=== PATIENT | male | born 1990 | race Caucasian/White ===

== ENCOUNTER 2022-08-10 13:33 | Inpatient (IN) | payer OTHER, SELFPAY ==
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
--- NOTE | ~2022-08-10 | XR_ITS ---
EXAMINATION: XR CHEST CLINICAL INFORMATION: Left-sided rib pain COMPARISON: Left RIBS with chest 08/12/2022. TECHNIQUE: 2 frontal views and a lateral projection of the chest are obtained for 3 views. FINDINGS: The cardiopericardial silhouette appears prominent. This may be further assessed with echocardiography. The vascularity is normal. The lungs are clear. No pneumothorax or pleural reaction. There is no vascular congestion, airspace consolidation, groundglass opacity. The costophrenic sulci are clear. The hilar and mediastinal contours are normal. There is small oval density lateral left apex just inferior to the fourth posterior rib, likely calcified granuloma just under 5 mm. Bony structures are unremarkable. Results communicated to APRIL Welsh via secure text at 1710 hrs on 08/13/2022. XR/XR chest 2V IMPRESSION: 1. Prominent cardiopericardial silhouette. This may be further assessed with echocardiography. 2. No pneumothorax, airspace consolidation, or effusion. 3. Probable small calcified granuloma lateral left upper lobe.
[2022-08-10 13:50] VITALS: BP 160/87; PULSE 81; RESP 16; TEMP 36.4; O2SAT 96
--- NOTE | 2022-08-10 14:45 | P.CNHOSGPS_ITS ---
History of Present Illness Data of Consult Service Date: 08/10/22 Primary Care Provider: Jason Schumacher MD [facility] Reason for consult: Transfer H&P Pt is a 31-year-old male with PMH significant for HTN, insomnia, history of back surgery, bipolar disorder, severe anxiety, and manic depression who is seen for a psychiatry admission history and physical. Patient complains of left rib pain. Pt also complains of chronic lower back and right knee pain, which he ascribes to years of powerlifting and from playing football. He also states he has chronic left leg numbness and tingling. Pt has no other acute complaints at this time. Pt is worried about brain tumors d/t his mother being diagnosed with one at 23 years of age, but does not have any vision or hearing changes, focal deficits, and only mild, intermittent headaches. Denies N/V, F/C, abdominal pain. No chest pain/pressure, palpitations, SOB. Review of Systems Review of Systems: Chronic back pain Chronic right knee pain Left rib pain No chest pain/pressure, palpitations Denies SOB Yes all other systems are reviewed and are negative [facility] Family History (Updated 08/10/22 @ 15:39 by APRIL Welsh) Sister Bipolar 1 disorder Diabetes Substance abuse Mother Bipolar 1 disorder Substance abuse Brain tumor Father Bipolar 1 disorder Suicide Surgical History (Updated 08/10/22 @ 15:40 by APRIL Welsh) Previous back surgery Social History (Updated 08/10/22 @ 15:41 by APRIL Welsh) Alcohol intake: never Patient Tobacco Use Status: Never used Tobacco Use of substances other than those prescribed or required for medical reasons: No Advance Directives: No Advance Directives Information Provided: No Advance Directives on File: No Meds Allergies Allergy/AdvReac Type Severity Reaction Status Date / Time No Known Allergies Allergy Unverified 04/26/20 16:00 Active Medications: Current Medications Acetaminophen (Acetaminophen 325 Mg Tablet) 650 mg PO Q6H PRN PRN Reason: Headache/Pain Mild Scale (1-3) Al Hydroxide/Mg Hydroxide (Magnesium Hydrox/Alum Hydrox 30 Ml Oral.Susp) 30 ml PO Q6H PRN PRN Reason: Heartburn/Nausea Hydroxyzine HCl (Hydroxyzine Hcl 25 Mg Tablet) 25 mg PO Q6H PRN PRN Reason: Anxiety Magnesium Hydroxide (Milk Of Magnesia 30 Ml Oral.Susp) 30 ml PO DAILY PRN PRN Reason: Constipation Trazodone HCl (Trazodone Hcl 50 Mg Tablet) 50 mg PO BEDTIME PRN PRN Reason: Insomnia Assessment and Plan (1) Rib pain on left side: Status: Acute (2) Chronic pain of right knee: Status: Acute (3) Chronic lower back pain: Status: Acute (4) Insomnia: Status: Acute Plan Pt is a 31-year-old male with PMH significant for HTN, insomnia, history of back surgery, bipolar disorder, severe anxiety, and manic depression who is seen for a psychiatry admission history and physical. # left rib pain -- chest x-ray -- acetaminophen prn for pain # chronic lower back and righ knee pain -- acetaminophen prn for pain management # HTN -- waiting on med rec, likely to continue home meds # insomnia -- continue trazadone # mental health -- as per psychiatry plan Thank you for allowing me to participate in the care of this pt. We will follow CXR and sign off then if the results are clear. Please contact us with any questions or additional concerns. Time Spent With Patient Time: Total time managing care of this patient today ____ minutes. Physical Exam Vital Signs: Last Vital Signs Temp 97.5 F 08/10/22 13:50 Pulse 81 08/10/22 13:50 Resp 16 08/10/22 13:50 BP 160/87 H 08/10/22 13:50 Pulse Ox 96 08/10/22 13:50 O2 Del Method 08/10/22 13:50 Constitutional: Alert, in no acute distress. Mental Status: Oriented to person, place and time. Eyes: Pupils are equal, round, and reactive to light. Ear, Nose, and Throat: Oropharynx clear, mucous membranes moist. Ears and nose without deformities. Trachea midline. Respiratory: Clear to auscultation bilaterally. No wheezing, rales, or rhonchi. Cardiovascular: S1, S2 regular. No murmurs, rubs, or gallops. Gastrointestinal: Abdomen soft, non-tender, non-distended. Normal bowel sounds. Neurologic: Cranial nerves II-XI are grossly intact. No focal neurological deficits. Moves all extremities spontaneously. Decreased sensation to touch to left leg Skin: No rashes or lesions noted. Musculoskeletal: Mild tenderness to anterior chest wall on left side. Extremities: No edema. Psychiatric: Normal mood and affect. Neuro Cranial nerves: Yes CN's II-XII intact bilaterally
[2022-08-10 18:00] VITALS: BP 142/82; PULSE 76; RESP 16; TEMP 36.8; O2SAT 97
--- NOTE | 2022-08-10 20:13 | PC.NURSE ---
pt refused flu shot
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
[2022-08-10] MEDS: traZODone HCL 50 MG TABLET PO (22:52)
[2022-08-11] MEDS: Acetaminophen 325 MG TABLET 650 MG PO ×3 (03:23→22:30)
[2022-08-11] MEDS: traZODone HCL 50 MG TABLET PO (03:24)
[2022-08-11] MEDS: hydrOXYzine HCL 25 MG TABLET PO ×3 (05:11→23:36)
[2022-08-11 08:10] LABS: Estimated Average Glucose 97 mg/dL
[2022-08-11 08:17] LABS: Cholesterol 141 mg/dL; HDL Cholesterol 27 mg/dL; LDL Cholesterol Calculated 96 mg/dl; Magnesium 1.6 mg/dL (1.6-2.6); Triglycerides 92 mg/dL
[2022-08-11 08:30] VITALS: BP 143/96; PULSE 101; TEMP 36.6
[2022-08-11 08:35] LABS: Free T4 (Free Thyroxine) 1.06 ng/dL (0.71-1.85)
[2022-08-11 08:47] LABS: Folate 13.1 ng/mL (> or = 4.0); Vitamin B12 975 pg/mL (200-900)
[2022-08-11] MEDS: OLANZapine ODT 10 MG TAB.RAPDIS TRANSLINGU ×2 (10:58→20:23)
[2022-08-11] MEDS: OLANZapine 10 MG TABLET PO (12:37)
[2022-08-11] MEDS: LORazepam 1 MG TABLET 2 MG PO ×2 (12:37→22:31)
[2022-08-11] MEDS: Divalproex Sodium ER 500 MG TAB.ER.24H PO ×2 (14:03→20:23)
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
[2022-08-11] MEDS: traZODone HCL 50 MG TABLET 150 MG PO ×2 (20:23→23:36)
[2022-08-11 20:30] VITALS: BP 178/96; PULSE 72; TEMP 36.2
[2022-08-12] MEDS: Acetaminophen 325 MG TABLET 650 MG PO ×2 (05:10→12:24)
[2022-08-12] MEDS: LORazepam 1 MG TABLET 2 MG PO ×2 (05:12→09:08)
[2022-08-12] MEDS: OLANZapine ODT 10 MG TAB.RAPDIS TRANSLINGU ×2 (07:56→20:51)
[2022-08-12] MEDS: Divalproex Sodium ER 500 MG TAB.ER.24H PO ×2 (07:56→20:53)
[2022-08-12 08:04] VITALS: BP 184/87; PULSE 86; RESP 16; TEMP 36.6; O2SAT 98
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
[2022-08-12] MEDS: OLANZapine 5 MG TABLET PO ×2 (12:25→16:23)
[2022-08-12 13:09] VITALS: BP 167/107; PULSE 112
[2022-08-12] MEDS: lisinopriL 5 MG TABLET PO (13:10)
[2022-08-12] MEDS: clonazePAM 0.5 MG TABLET PO ×2 (13:11→16:22)
[2022-08-12] MEDS: Cariprazine HCl 3 MG CAPSULE PO (13:11)
[2022-08-12 18:00] VITALS: BP 136/96; PULSE 89; TEMP 36.2; O2SAT 96
[2022-08-12] MEDS: traZODone HCL 100 MG TABLET 300 MG PO (20:51)
[2022-08-13] MEDS: hydrOXYzine HCL 25 MG TABLET PO ×3 (00:54→13:23)
[2022-08-13] MEDS: OLANZapine 5 MG TABLET PO ×3 (00:54→13:23)
[2022-08-13] MEDS: Acetaminophen 325 MG TABLET 650 MG PO ×2 (04:10→11:24)
[2022-08-13 06:00] VITALS: BP 160/108; PULSE 102; TEMP 36.2; O2SAT 96
[2022-08-13] MEDS: OLANZapine ODT 10 MG TAB.RAPDIS TRANSLINGU ×2 (08:18→21:11)
[2022-08-13] MEDS: clonazePAM 0.5 MG TABLET PO ×2 (08:18→16:27)
[2022-08-13] MEDS: lisinopriL 10 MG TABLET PO (08:18)
[2022-08-13] MEDS: Cariprazine HCl 3 MG CAPSULE PO (08:18)
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
[2022-08-13] MEDS: chlorproMAZINE HCl 25 MG TABLET 75 MG PO (14:12)
[2022-08-13] MEDS: Ibuprofen 800 MG TABLET PO (15:47)
[2022-08-13] MEDS: chlorproMAZINE HCl 100 MG TABLET PO ×2 (16:26→21:11)
[2022-08-13] MEDS: traZODone HCL 100 MG TABLET 300 MG PO (21:11)
[2022-08-13] MEDS: Zolpidem Tartrate 5 MG TABLET PO (21:12)
[2022-08-13] MEDS: Divalproex Sodium ER 500 MG TAB.ER.24H 1000 MG PO (21:12)
[2022-08-13 21:43] VITALS: BP 129/74; TEMP 36.1; O2SAT 96
[2022-08-13 22:58] LABS: Prolactin 12.3 ng/mL (2.0-18.0)
--- NOTE | 2022-08-13 23:15 | PC.NURSE ---
Patient told this sql report writer that [employer] is working really well for me .
[2022-08-14] MEDS: Acetaminophen 325 MG TABLET 650 MG PO (04:29)
[2022-08-14] MEDS: hydrOXYzine HCL 25 MG TABLET PO (04:30)
[2022-08-14] MEDS: chlorproMAZINE HCl 100 MG TABLET PO ×3 (04:30→16:24)
[2022-08-14] MEDS: clonazePAM 0.5 MG TABLET PO ×2 (08:06→16:24)
[2022-08-14] MEDS: Ibuprofen 800 MG TABLET PO ×3 (08:06→16:23)
[2022-08-14] MEDS: Cariprazine HCl 3 MG CAPSULE PO (08:07)
[2022-08-14] MEDS: OLANZapine ODT 10 MG TAB.RAPDIS TRANSLINGU ×2 (08:07→20:46)
[2022-08-14] MEDS: lisinopriL 10 MG TABLET PO ×2 (08:07→11:12)
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
[2022-08-14 08:57] VITALS: BP 181/95; PULSE 103; RESP 18; TEMP 36.4; O2SAT 91
--- NOTE | 2022-08-14 09:50 | PC.NURSE ---
updated 08/14- Pt. signed a 3 day notice today 08/14 , up on Saturday 08/19.
[2022-08-14] MEDS: OLANZapine 5 MG TABLET PO ×2 (12:52→14:09)
[2022-08-14] MEDS: cloNIDine HCL 0.1 MG TABLET PO ×2 (14:09→20:46)
[2022-08-14 14:36] VITALS: BP 150/96
[2022-08-14] MEDS: Lithium Carbonate ER 300 MG TABLET.ER PO (14:50)
[2022-08-14] MEDS: clonazePAM 1 MG TABLET PO (14:50)
--- NOTE | 2022-08-14 16:55 | PM.EVENT ---
Documented by User: APRIL Welsh 08/14/22 16:57 Event Note Date of Service: 08/14/22 Event Note: Patient's initial x-ray came back identifying the prominent cardiopericardial silhouette. Will get echocardiogram for further evaluation. Will follow for now, pending echo results. Time Spent With Patient Time: Total time managing care of this patient today ____ minutes. Documented by User: Tony Raymond MD 08/29/22 07:17 Event Note Date of Service: 08/29/22
[2022-08-14 18:00] VITALS: BP 132/78; PULSE 96; RESP 16; TEMP 36.6; O2SAT 98
[2022-08-14] MEDS: Divalproex Sodium ER 500 MG TAB.ER.24H 1000 MG PO (20:46)
[2022-08-14] MEDS: Zolpidem Tartrate 5 MG TABLET PO (20:46)
[2022-08-14] MEDS: Lithium Carbonate ER 300 MG TABLET.ER 600 MG PO (20:46)
[2022-08-14] MEDS: traZODone HCL 100 MG TABLET 300 MG PO (20:47)
[2022-08-15] MEDS: chlorproMAZINE HCl 100 MG TABLET PO ×3 (04:57→16:08)
[2022-08-15 05:41] VITALS: BP 128/87; PULSE 94; RESP 16; TEMP 36.2; O2SAT 97
[2022-08-15] MEDS: OLANZapine 5 MG TABLET PO (05:55)
[2022-08-15] MEDS: hydrOXYzine HCL 25 MG TABLET PO (05:55)
--- NOTE | 2022-08-15 07:00 | CA_ITS ---
Transthoracic Echocardiogram Patient (Last, First, Middle): Washington Yap, Gender: Male Date of : 1990 Age: 31 Procedure Date: 08/15/2022 Procedure Type: Transthoracic Echocardiogram Location: 5 Height: 177.8 cm Weight: 140.62 kg BSA: 2.51 m2 Heart Rate: 72 bpm BP: 128 / 87 mmHg Sales Development Executive: SB Referring MD: Maria Eugenia CHEN Symptoms: Abnormal Chest X-Ray, possible Cardiomyopathy Study Quality: Adequate ECG Rhythm: Sinus Conclusions: - The left ventricular systolic function is normal. The visually estimated ejection fraction is between 60-65%. - No obvious valvular pathology seen on this study. Findings Left Ventricle Normal left ventricular cavity size. There is moderately increased left ventricular wall thickness. The left ventricular systolic function is normal. The visually estimated ejection fraction is between 60-65%. There is no evidence of regional wall motion abnormalities. Diastolic function is normal for age. Right Ventricle There is normal right ventricular systolic function. Right ventricular size appears enlarged, but probably within acceptable limits for his size. Atria Both atria are normal in size. Aortic Valve There is a normal trileaflet aortic valve. There is no aortic valve stenosis. There is no aortic valve regurgitation. Mitral Valve The mitral valve appears normal. There is no mitral valve regurgitation. There is no mitral valve stenosis. Pulmonic Valve The pulmonic valve is likely normal. Tricuspid Valve Normal tricuspid valve structure. There is trace tricuspid valve regurgitation. There is no evidence of pulmonary hypertension. Great Vessels The asc aorta is normal in size. Venous The inferior vena cava is normal in size and collapses greater than 50% with inspiration. Pericardium/Pleural There is no evidence of pericardial effusion. Prior Study Comparison No prior study available for comparison. Recommendations, Care & Conclusions No obvious valvular pathology seen on this study. Measurements 2D Linear Measurements IVSd: 1.81 0.6-0.9/0.6-1.0 cm LVIDd: 4.62 3.9-5.3/4.2-5.9 cm LVIDd Index: 1.84 2.4-3.2/2.2-3.1 cm/m2 LVIDs: 3.27 2.0-3.6 cm LVPWd: 1.32 0.7-1.1 cm LA Diam: 4.60 2.7-3.8/3.0-4.0 cm LAIDs Index: 1.83 1.5-2.3 cm/m2 LV Mass: 381.55 67-162/88-224 g LV Mass Index: 152.01 43-95/49-115 g/m2 LVOT Diam: 2.90 3.0+(-)1.3 cm 2D Systolic Function EF 4C: 56.30 >55% EF 2C: 57.80 >55% EF BiP: 56.30 >55% Mitral Valve MV Pk E: 0.72 MV PK A: 0.47 MV Decel Time: 166.00 E/A: 1.50 E'Lateral: 10.80 E'Medial: 8.27 E/E' Med: 8.70 E/E' Lat: 6.70 PHT: 49.00 MVA PHT: 4.49 Decel [place]: 4.35 Aortic Valve AoV Pk Cirilo: 1.32 AoV Pk Grad: 7.00 LVOT LVOT Pk Cirilo: 1.37 LVOT Mn Cirilo: 0.90 LVOT VTI: 0.27 LVOT Pk Grad: 8.00 LVOT Mn Grad: 4.00 LVOT Diam: 2.90 LVOT Area: 6.61 Diastolic Function MV Pk E: 0.72 MV Pk A: 0.47 E/A: 1.50 E'Medial: 8.27 E/E' Med: 8.70 E' Laterial: 10.80 E/E' Lat: 6.70 Right Ventricle TAPSE (mm): 29.30 TVS' Cirilo: 17.50 Tricuspid Valve TR Pk Cirilo: 2.26 TR Pk Grad: 20.00 RA Press: 3.00 RVSP: 23.00 Great Vessels Aorta Sinus of Valsalva: 4.10 2.0-3.5 cm Ao Asc: 3.30 2.1-3.4 cm Pulmonary Veins Pulm Vein S/D 1.20 Pulmonary Valve PV Pk Cirilo: 1.16 Peak PV Grad: 5.00 Updated in Other Vendor System with Status of Final Hardik Dobbs MD electronically signed on 08/15/2022 4:17:10 PM with status of Final
[2022-08-15] MEDS: Ibuprofen 800 MG TABLET PO ×3 (08:34→16:09)
[2022-08-15] MEDS: lisinopriL 20 MG TABLET PO (08:34)
[2022-08-15] MEDS: clonazePAM 0.5 MG TABLET PO ×2 (08:35→13:04)
[2022-08-15] MEDS: OLANZapine ODT 10 MG TAB.RAPDIS TRANSLINGU (08:35)
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
[2022-08-15] MEDS: Testosterone Cypionate 200 MG/1 ML VIAL 100 MG IM (12:32)
[2022-08-15] MEDS: cloNIDine HCL 0.1 MG TABLET PO ×2 (14:10→21:29)
--- NOTE | 2022-08-15 19:20 | PM.EVENT ---
Event Note Date of Service: 08/15/22 Event Note: Patient's echocardiogram came back with no acute findings. Echo showed normal left ventricular systolic function with an estimated ejection fraction between 60-65%, and no obvious valvular pathology. Will sign off for now. Please let us know if there are any additional questions or concerns with this patient's medical care. Time Spent With Patient Time: Total time managing care of this patient today ____ minutes.
[2022-08-15 21:20] VITALS: BP 129/66; PULSE 122; TEMP 35.9
[2022-08-15] MEDS: Zolpidem Tartrate 5 MG TABLET PO (21:24)
[2022-08-15] MEDS: Lithium Carbonate ER 450 MG TABLET.ER 900 MG PO (21:27)
[2022-08-15] MEDS: OLANZapine ODT 10 MG TAB.RAPDIS 5 MG TRANSLINGU (21:27)
[2022-08-15] MEDS: traZODone HCL 100 MG TABLET 300 MG PO (21:28)
[2022-08-15] MEDS: Divalproex Sodium ER 500 MG TAB.ER.24H 1000 MG PO (21:28)
[2022-08-16] MEDS: traZODone HCL 100 MG TABLET 200 MG PO (04:17)
[2022-08-16] MEDS: chlorproMAZINE HCl 100 MG TABLET PO ×2 (04:17→09:29)
[2022-08-16] MEDS: clonazePAM 0.5 MG TABLET PO ×2 (05:42→15:47)
[2022-08-16 06:00] VITALS: BP 122/66; PULSE 95; RESP 16; TEMP 36.8; O2SAT 96
[2022-08-16] MEDS: cloNIDine HCL 0.1 MG TABLET PO (08:18)
[2022-08-16] MEDS: lisinopriL 20 MG TABLET PO (08:18)
[2022-08-16] MEDS: OLANZapine ODT 10 MG TAB.RAPDIS 5 MG TRANSLINGU ×2 (08:20→22:36)
[2022-08-16 08:42] LABS: Valproate 45.8 mcg/mL (50.0-100.0)
[2022-08-16 08:42] LABS: Ammonia 34 umol/L (13-55)
[2022-08-16 08:42] LABS: Blood Urea Nitrogen 13 mg/dL (9-16); Estimated Glomerular Filt Rate > 60; TSH reflex Free T4 1.18 uIU/mL (0.32-4.0)
[2022-08-16] MEDS: Milk of Magnesia 30 ML ORAL.SUSP PO (08:45)
[2022-08-16] MEDS: OLANZapine 5 MG TABLET PO (09:30)
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
[2022-08-16] MEDS: Acetaminophen 325 MG TABLET 650 MG PO (18:51)
[2022-08-16 22:30] VITALS: BP 119/62; PULSE 68; TEMP 35.7
[2022-08-16] MEDS: traZODone HCL 100 MG TABLET 300 MG PO (22:33)
[2022-08-16] MEDS: Divalproex Sodium ER 500 MG TAB.ER.24H 1500 MG PO (22:34)
[2022-08-16] MEDS: Lithium Carbonate ER 450 MG TABLET.ER 900 MG PO (22:35)
[2022-08-16] MEDS: Zolpidem Tartrate 5 MG TABLET PO (22:35)
[2022-08-16] MEDS: OLANZapine 10 MG TABLET PO (22:36)
[2022-08-17] MEDS: traZODone HCL 100 MG TABLET 200 MG PO (03:54)
[2022-08-17] MEDS: clonazePAM 0.5 MG TABLET PO ×2 (03:55→11:18)
[2022-08-17] MEDS: chlorproMAZINE HCl 100 MG TABLET PO ×3 (03:55→17:47)
[2022-08-17 06:00] VITALS: BP 138/79; PULSE 93; RESP 14; TEMP 36.4; O2SAT 96
[2022-08-17] MEDS: lisinopriL 20 MG TABLET PO (08:42)
[2022-08-17] MEDS: OLANZapine ODT 10 MG TAB.RAPDIS 5 MG TRANSLINGU ×2 (08:42→20:46)
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
[2022-08-17 17:13] LABS: Testosterone, Free 25.7 pg/mL (35.0-155.0); Testosterone, Total 138 ng/dL (250-1100)
[2022-08-17] MEDS: Lithium Carbonate ER 450 MG TABLET.ER 900 MG PO (20:45)
[2022-08-17] MEDS: Divalproex Sodium ER 500 MG TAB.ER.24H 1500 MG PO (20:46)
[2022-08-17] MEDS: OLANZapine 10 MG TABLET PO (20:46)
[2022-08-17] MEDS: Zolpidem Tartrate 5 MG TABLET PO (20:48)
[2022-08-17] MEDS: traZODone HCL 100 MG TABLET 300 MG PO (20:48)
[2022-08-17 20:55] VITALS: BP 147/62; PULSE 124; TEMP 36.2
[2022-08-18] MEDS: chlorproMAZINE HCl 100 MG TABLET PO ×3 (02:23→15:49)
[2022-08-18] MEDS: traZODone HCL 100 MG TABLET 200 MG PO (02:24)
[2022-08-18 06:00] VITALS: BP 140/79; PULSE 84; RESP 14; TEMP 36.6; O2SAT 97
[2022-08-18] MEDS: OLANZapine ODT 10 MG TAB.RAPDIS 5 MG TRANSLINGU ×2 (08:03→20:23)
[2022-08-18] MEDS: lisinopriL 20 MG TABLET PO (08:03)
[2022-08-18] MEDS: Acetaminophen 325 MG TABLET 650 MG PO (09:26)
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
[2022-08-18 18:15] VITALS: BP 142/82; PULSE 98; TEMP 35.9; O2SAT 96
[2022-08-18] MEDS: Zolpidem Tartrate 5 MG TABLET PO (20:22)
[2022-08-18] MEDS: Lithium Carbonate ER 450 MG TABLET.ER 900 MG PO (20:22)
[2022-08-18] MEDS: cloNIDine HCL 0.1 MG TABLET PO (20:22)
[2022-08-18] MEDS: traZODone HCL 100 MG TABLET 300 MG PO (20:23)
[2022-08-18] MEDS: Divalproex Sodium ER 500 MG TAB.ER.24H 1500 MG PO (20:23)
[2022-08-18] MEDS: OLANZapine 10 MG TABLET PO (20:23)
[2022-08-19 08:01] VITALS: BP 127/71; PULSE 98; RESP 16; TEMP 36.4; O2SAT 96
[2022-08-19] MEDS: OLANZapine ODT 10 MG TAB.RAPDIS 5 MG TRANSLINGU (08:23)
[2022-08-19] MEDS: cloNIDine HCL 0.1 MG TABLET PO (08:23)
[2022-08-19 08:40] LABS: Lithium 0.46 mmol/L (0.60-1.20)
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
[2022-08-19 08:42] LABS: Ammonia 59 umol/L (13-55)
[2022-08-19 08:43] LABS: Estimated Average Glucose 105 mg/dL; Hemoglobin A1c % 5.3 %
[2022-08-19 08:45] LABS: Valproate 70.7 mcg/mL (50.0-100.0)
[2022-08-19 08:51] LABS: Alanine Aminotransferase 29 U/L (0-40); Alkaline Phosphatase 55 U/L (39-117); Anion Gap 13 (12-20); Aspartate Amino Transferase 20 U/L (5-37); Bilirubin Direct 0.2 mg/dL (0.0-0.5); Bilirubin Total 0.6 mg/dL (0.0-1.0); Blood Urea Nitrogen 13 mg/dL (9-16); Carbon Dioxide 26 mmol/L (22-29); Chloride 105 mmol/L (96-108); Cholesterol 162 mg/dL; Estimated Glomerular Filt Rate > 60; HDL Cholesterol 30 mg/dL; LDL Cholesterol Calculated 107 mg/dl; Potassium 4.2 mmol/L (3.3-5.1); Sodium 140 mmol/L (135-145); Total Protein 6.4 g/dL (6.5-8.0); Triglycerides 128 mg/dL
[2022-08-19 09:08] LABS: Reflex LDLD? No
[2022-08-19] MEDS: chlorproMAZINE HCl 100 MG TABLET PO (09:25)
== END 2022-08-19 13:00 | disposition home or self-care (01) | DRG 753 ==
PROVIDERS: Clinical Nurse Specialist Psychiatric/Mental Health, Adult; Admitting Provider Psychiatry & Neurology Psychiatry; PCP Internal Medicine; Visit Provider Psychiatry & Neurology Psychiatry
DX: F31.2 Bipolar disorder, current episode manic severe with psychotic features (principal); F09 Unspecified mental disorder due to known physiological condition; G47.00 Insomnia, unspecified; T38.0X5A Adverse effect of glucocorticoids and synthetic analogues, initial encounter; G89.29 Other chronic pain; I10 Essential (primary) hypertension; Z88.8 Allergy status to other drugs, medicaments and biological substances; Z79.899 Other long term (current) drug therapy
CPT/HCPCS: 36415; 71046; 71101; 80051; 80061; 80076; 80164; 80178; 82140; 82565; 82607; 82746; 83036; 83735; 84146; 84402; 84403; 84439; 84443; 84520; 93306; J1071

== ENCOUNTER 2025-03-01 12:31 | Inpatient (IN) | payer OTHER, SELFPAY ==
[2025-03-01] VITALS (8 sets, daily range): BP systolic 149–172; BP diastolic 76–89; PULSE 86–116; RESP 14–20; TEMP 36.3; O2SAT 93–98; BMI 45.9
--- NOTE | 2025-03-01 12:48 | ED_ITS ---
HPI - Psych General Chief Complaint: Psychiatric Symptoms Stated Complaint: SEC 12/COURT,AMS,H/O PSYCH/COMBATIVENESS,CALM/COOP Time Seen by Provider: 03/01/25 12:42 Source: EMS and police Mode of arrival: EMS History of Present Illness HPI Narrative: This is a 34 years old the patient with a history of bipolar disorder prior psychiatric hospitalization was brought here by the EMS and police because extremely agitated and psychotic. He was arrested over the weekend today went to court he was urinating in the floor in got undressed on court naked Onset (ago): hour(s) (1) Duration: constant History of same: Yes Relieving factors: none Exacerbating factors: none Associated psychiatric symptoms: racing thoughts and delusions Treatments prior to arrival: none Related Data Home Medications ?Medication ?Instructions ?Recorded ?Confirmed suvorexant 10 mg tablet (Belsomra) 20 mg PO DAILY 02/0803/02/25 syringe with needle, safety 3 mL 03/02/25 03/02/25 22 gauge x 1 1/2 (UltiCare Safety Syringe) ibuprofen 800 mg tablet 800 mg PO Q8H PRN pain 03/0303/03/25 lisinopril 20 mg tablet 20 mg PO DAILY 03/03/2502/08 Previous Rx's ?Medication ?Instructions ?Recorded testosterone cypionate 200 mg/mL 100 mg (0.5 mL) IM Q7 D #0 mL 08/19/22 intramuscular oil (Depo-Testosterone) Allergies Allergy/AdvReac Type Severity Reaction Status Date / Time naloxone Allergy Unknown Verified 03/01/25 12:51 Review of Systems 2 Review of Systems: Yes Unobtainable due to mental condition PMFSH Past Medical History PMFSH Narrative: Bipolar disorder/prior psychiatric hospitalization Medical History (Updated 03/04/25 @ 11:50 by Adriane De La Fuente MD) Morbid obesity Essential hypertension Surgical History (Updated 08/10/22 @ 15:40 by APRIL Welsh) Previous back surgery Family History Family History Sister Bipolar 1 disorder Diabetes Substance abuse Mother Bipolar 1 disorder Substance abuse Brain tumor Father Bipolar 1 disorder Suicide Social History Social History Household Members: Family Household Members Other:: mom, sister, and sister's boyfriend Housing: Unknown / Unable to assess Do you presently have visiting nurse or other home services: No Unable to assess alcohol history related to: Unable to respond Alcohol intake: never Comment: pt is on 1:1 for behaviors Patient Tobacco Use Status: Never used Tobacco e-Cigarette/Vaping Use: Never Used Use of substances other than those prescribed or required for medical reasons: Unable to respond Currently Displaying Signs/Symptoms of Drug Intoxication Withdrawal: No Advance Directives: No Advance Directives Information Provided: No Do you have thoughts of harming others: None Do you have a plan to hurt others: No Plan Recently lost weight without trying: Unsure Nutrition Risks: No Nutritional Risk Poor oral hygiene: Yes service: No Sexual orientation: Straight/Heterosexual Physical Exam 2 Exam: Exam: He is awake alert oriented x3 agitated Vital Signs: Vital Signs: Last Vital Signs Temp 97.7 F 03/07/25 22:03 Pulse 124 H 03/07/25 22:03 Resp 16 03/07/25 22:03 BP 141/93 H 03/07/25 22:03 Pulse Ox 95 03/07/25 22:03 O2 Del Method Room Air 03/07/25 22:03 BMI result Body Mass Index 45.9 Const: General: well developed, alert, awake and Physically active N utritional Appearance: well nourished HEENT: Other: No sign of trauma Head: Yes normal to inspection General nose exam: Normal external nose present Face and sinus: Yes normal facial exam Mouth: Normal oral and palatal mucosa present Neck: Neck: Yes normal visual inspection Chest: Chest palpation & inspection: normal inspection of the chest Resp: Effort & Inspection: normal respiratory effort Auscultation: clear to auscultation bilaterally Cardio: Rate: regular rate GI: Inspection: Yes normal to inspection Skin: General skin exam: no rashes or lesions noted Neuro: Other: Awake no focal Cranial nerves: Yes CN's II-XII intact bilaterally Course Reevaluation(s) Reevaluation #1: Sleeping in not acute distress at this time receive IM droperidol and IM Valium , waiting for crisis eval Time: 15:33 Reevaluation #2: IM off shift now case was signed out to Dr Garcia Time: 16:11 Reevaluation #3: 12:50 AM 03/02/2025 (Jatin CHEN): The patient is a 34-year-old male who presented to the ED for crisis evaluation. The patient received droperidol and Valium IM upon arrival. Patient was cooperative for majority of the evening however is now awake, refusing to stay in his room, undressing, attempting to enter other patient's rooms, making statements about leaving the ED, and is becoming less responsive to redirection. Patient was agreeable to p.o. Benadryl, Valium, and Haldol, however patient has had no improvement in symptoms with these medications, patient case discussed with Dr. Garcia who recommends 20 mg Geodon IM. Patient will be order for IM Geodon. 2:26 AM 03/02/2025 (Jatin CHEN): RN notify this provider while change in the patient that the patient had a significantly erythematous and malodorous rash of the groin and bilateral inner thighs, this provider's evaluation shows moderately demarcated erythema of the bilateral internal thighs radiating into the perineum. Patient reportedly was noncompliant with lab draw upon arrival, and labs were not drawn as the patient had already been evaluated in the outpatient setting and placed on section 12, thus labs were not required for crisis to see the patient. Given the patient's re-evaluation which shows significant erythema of the perineum and given the patient's altered mental status we will re-attempt lab draw to ensure no evidence of infectious pathology which may be contributing to the patient's AMS. Time: 08:19 Additional Reevaluation(s): Time: 08:20 Date: 03/02/25 Provider: Mansoor Atkins, DO Patient in physician observation for psychiatric evaluation.? No acute events reported overnight. No current complaints. VS stable.? Patient is in bed search status. 03/02/2025 0939 Gilda Shaikh PA-C --> Patient got out of bed, closed his curtain behind him, and attempted to leave through the behavioral health pod doors. Patient was redirectable but quickly became agitated. Given 10mg of IM Droperdiol worked well yesterday, patient given another dose today. Dr. Atkins aware. Time: 08:18 Date: 03/03/25 Provider: Rahul Luther MD Patient in physician observation for psychiatric evaluation.? No acute events reported overnight. No current complaints. VS stable.? Patient was CARE team evaluation and they requesting psychiatry consult to help manage this the patient therefore I ordered a consult.. Will continue to monitor. Time: 08:40 Date: 03/03/25 Provider: Rahul Luther MD Patient in physician observation for psychiatric evaluation.? Patient was evaluated by care team and I was informed the patient is being considered for admission. I did order an EKG to evaluate the patient's QTC interval. Patient does have PRN medications to help control his agitation/behavior. His outpatient medications were reconciled and I did order his outpatient medications. Will continue to monitor. 03/03/25 Provider: Rahul Luther MD 09:58 Patient in physician observation for psychiatric evaluation.? Patient became agitated, he was slapping himself on the head, he stood up and was praying, he stood outside of the room, security was standing by to try help calm the patient down. Patient has gotten multiple IM injections throughout his course in the emergency department for this type of behavior. I ordered Haldol 10 mg IM, Benadryl 50 mg IM and Versed 4 mg IM. 11:15 Patient had minimal effect with the above IM medication. I ordered Thorazine 50 mg IM and Thorazine 200 mg orally. I also ordered a psychiatry consult for recommendations on medications to help control the patient's behavior Time: 12:56 Date: 03/03/25 Provider: Rahul Luther MD Physician observation ended at 12:56 hours. Patient to be admitted as inpatient to psychiatry. Medications Administered Generic Name Dose Route Start Last Admin Trade Name Freq PRN Reason Stop Dose Admin Acetaminophen 650 mg 03/02/25 17:26 03/07/25 20:11 Acetaminophen 325 Mg Tablet PO 650 mg Q6H PRN Administration Headache/Pain, Scale 1-10 Amlodipine Besylate 7.5 mg 03/07/25 21:00 03/07/25 22:05 Amlodipine Besylate 2.5 Mg Tablet PO 7.5 mg BEDTIME DIXIE Administration Protocol Chlorpromazine HCl 200 mg 03/03/25 15:20 03/06/25 23:05 Chlorpromazine Hcl 100 Mg Tablet PO 200 mg Q6H PRN Administration agitation Clotrimazole 1 appl 03/04/25 21:00 03/08/25 09:28 Clotrimazole 1 % Cream 15 Gm Tube TOPICAL Not Given BID DIXIE Protocol Diazepam 10 mg 03/03/25 15:20 03/07/25 22:06 Diazepam 5 Mg Tablet PO 10 mg Q6H PRN Administration agitation [place] Carbonate 600 mg 03/03/25 13:20 03/08/25 09:27 [place] Carbonate Er 300 Mg Tablet.Er PO 600 mg BID DIXIE Administration Nystatin 1 appl 03/04/25 09:00 03/08/25 09:29 Nystatin Powder 15 Gm Bottle TOPICAL Not Given TID DIXIE Protocol Olanzapine 20 mg 03/03/25 21:00 03/07/25 22:06 Olanzapine 10 Mg Tablet PO 20 mg BEDTIME DIXIE Administration Testosterone Cypionate 100 mg 03/04/25 09:00 03/04/25 12:04 Testosterone Cypionate 200 Mg/1 Ml Vial IM 100 mg Th DIXIE Administration Discontinued Medications Generic Name Dose Route Start Last Admin Trade Name Joseph PRN Reason Stop Dose Admin Amlodipine Besylate 5 mg 03/04/25 11:20 03/07/25 09:25 Amlodipine Besylate 5 Mg Tablet PO 5 mg DAILY DIXIE Administration Protocol Chlorpromazine HCl 50 mg 03/03/25 11:12 03/03/25 11:25 Chlorpromazine Hcl 25 Mg/Ml Ampul IM 03/03/25 11:13 50 mg ONCE ONE Administration Chlorpromazine HCl 200 mg 03/03/25 12:17 03/03/25 12:24 Chlorpromazine Hcl 100 Mg Tablet PO 03/03/25 12:18 200 mg ONCE ONE Administration Diazepam 5 mg 03/01/25 12:46 03/01/25 12:55 Diazepam 10 Mg/2 Ml Cartridge IM 03/01/25 12:47 5 mg STAT STA Administration Diazepam 2 mg 03/02/25 00:18 03/02/25 00:28 Diazepam 2 Mg Tablet PO 03/02/25 00:19 2 mg ONCE ONE Administration Diphenhydramine HCl 50 mg 03/02/25 00:18 03/02/25 00:29 Diphenhydramine Hcl 25 Mg Capsule PO 03/02/25 00:19 50 mg ONCE ONE Administration Diphenhydramine HCl 50 mg 03/03/25 09:56 03/03/25 10:05 Diphenhydramine Hcl 50 Mg/Ml Vial IM 03/03/25 09:57 50 mg ONCE ONE Administration Diphenhydramine HCl 50 mg 03/03/25 09:59 03/03/25 10:16 Diphenhydramine Hcl 50 Mg/Ml Vial IM 03/03/25 10:00 Not Given ONCE ONE Droperidol 10 mg 03/01/25 12:44 03/01/25 12:55 Droperidol 5 Mg/2 Ml Vial IM 03/01/25 12:45 10 mg ONCE ONE Administration Droperidol 10 mg 03/02/25 09:19 03/02/25 09:29 Droperidol 5 Mg/2 Ml Vial IM 03/02/25 09:20 10 mg ONCE ONE Administration Haloperidol 5 mg 03/02/25 00:18 03/02/25 00:28 Haloperidol 5 Mg Tablet PO 03/02/25 00:19 5 mg ONCE ONE Administration Haloperidol Lactate 10 mg 03/03/25 09:56 03/03/25 10:05 Haloperidol Lactate 5 Mg/Ml Vial IM 03/03/25 09:57 10 mg STAT STA Administration Haloperidol Lactate 10 mg 03/03/25 09:59 03/03/25 10:16 Haloperidol Lactate 5 Mg/Ml Vial IM 03/03/25 10:00 Not Given STAT STA Lisinopril 20 mg 03/03/25 09:00 03/03/25 10:29 Lisinopril 20 Mg Tablet PO Not Given DAILY DIXIE Protocol Lorazepam 2 mg 03/02/25 18:01 03/02/25 19:08 Lorazepam 1 Mg Tablet PO 03/02/25 18:02 Not Given ONCE ONE Lorazepam 2 mg 03/03/25 06:14 03/03/25 06:25 Lorazepam 2 Mg/Ml Vial IM 03/03/25 06:15 Not Given STAT STA Midazolam HCl 5 mg 03/02/25 15:28 03/02/25 15:33 Midazolam Hcl 5 Mg/Ml Vial IM 03/02/25 15:29 5 mg ONCE ONE Administration Midazolam HCl 2 mg 03/03/25 01:07 03/03/25 01:45 Midazolam Hcl 2 Mg/2 Ml Vial IM 03/03/25 01:08 2 mg ONCE ONE Administration Midazolam HCl 2 mg 03/03/25 02:50 03/03/25 03:11 Midazolam Hcl 2 Mg/2 Ml Vial IM 03/03/25 02:51 Not Given ONCE ONE Midazolam HCl 5 mg 03/03/25 06:18 03/03/25 06:25 Midazolam Hcl 5 Mg/Ml Vial IM 03/03/25 06:19 5 mg ONCE ONE Administration Midazolam HCl 4 mg 03/03/25 09:56 03/03/25 10:05 Midazolam Hcl 2 Mg/2 Ml Vial IVPUSH 03/03/25 09:57 4 mg ONCE ONE Administration Midazolam HCl 4 mg 03/03/25 09:59 03/03/25 10:16 Midazolam Hcl 2 Mg/2 Ml Vial IM 03/03/25 10:00 Not Given ONCE ONE Olanzapine 5 mg 03/02/25 17:26 03/07/25 02:54 Olanzapine 5 Mg Tablet PO 5 mg BID PRN Administration agitation Olanzapine 10 mg 03/03/25 02:49 03/03/25 03:11 Olanzapine 10 Mg Vial IM 03/03/25 02:50 Not Given ONCE ONE Olanzapine 10 mg 03/03/25 06:14 03/03/25 06:25 Olanzapine 10 Mg Vial IM 03/03/25 06:15 10 mg ONCE ONE Administration Ziprasidone 20 mg 03/02/25 00:48 03/02/25 00:54 Ziprasidone Mesylate 20 Mg Vial IM 03/02/25 00:49 20 mg ONCE ONE Administration Ziprasidone 10 mg 03/02/25 15:44 03/02/25 15:52 Ziprasidone Mesylate 20 Mg Vial IM 03/02/25 15:45 10 mg ONCE ONE Administration Ziprasidone 20 mg 03/02/25 17:37 03/02/25 17:45 Ziprasidone Mesylate 20 Mg Vial IM 03/02/25 17:38 20 mg ONCE ONE Administration Ziprasidone 20 mg 03/03/25 01:39 03/03/25 01:45 Ziprasidone Mesylate 20 Mg Vial IM 03/03/25 01:40 20 mg ONCE ONE Administration Medical Decision Making Medical Decision Making [facility] Narrative: Patient is here with psychotic symptoms, we will consult crisis we will administer droperidol for agitation Differential Diagnosis Differential Diagnoses: The differential diagnosis associated with the presentation includes Psychosis/drug abuse Lab Data [facility] Lab Attestation statement: I reviewed the patient's lab results. 03/07/25 07:34 03/08/25 08:37 Labs: Lab Results 03/02/25 03/02/25 Range/Units 02:38 09:12 WBC 12.7 H (4.8-10.8) X10*3/uL RBC 5.51 (4.60-5.80) X10*6/uL Hgb 15.9 (14.0-18.0) g/dl Hct 45.4 (42.0-52.0) % MCV 82.4 (80.0-98.0) fL MCH 28.9 (27.0-33.0) pg MCHC 35.0 (31.0-36.0) g/dl RDW 13.2 (11.0-16.0) % Plt Count 258 (160-400) X10*3/uL MPV 10.9 (9.4-12.4) fL Immature Gran % (Auto) 0.3 (0.0-0.4) % Neut % (Auto) 83.3 H (45-73) % Lymph % (Auto) 7.6 L (20-40) % [place] % (Auto) 8.0 (2-11) % Eos % (Auto) 0.4 (0-4) % Baso % (Auto) 0.4 (0-2) % Lymph # (Auto) 1.0 L (1.2-4.9) X10*3/uL [place] # (Auto) 1.0 (0.1-1.2) X10*3/uL Eos # (Auto) 0.1 (0.0-0.4) X10*3/uL Baso # (Auto) 0.1 (0.0-0.2) X10*3/uL Abs Immat Gran (auto) 0.04 H (0.00-0.03) X10*3/uL Absolute Neuts (auto) 10.5 H (2.0-8.3) x10*3/uL Absolute Nucleated RBC 0.000 (0.0-0.012) X10*3/uL Nucleated RBC % (auto) 0.0 (0.0-0.2) /100WBC Sodium 144 (135-145) mmol/L Potassium 3.6 (3.3-5.1) mmol/L Chloride 109 H (96-108) mmol/L Carbon Dioxide 25 (22-29) mmol/L Anion Gap 14 (12-20) BUN 14 (9-16) mg/dL Creatinine 0.89 (0.5-1.4) mg/dL Estim Creat Clear Calc 176.9 Estimated GFR > 60 Random Glucose 136 H (60-115) mg/dL Lactic Acid 1.3 (0.5-2.0) mmol/L Calcium 9.0 (8.4-10.2) mg/dL Total Bilirubin 1.8 H (0.0-1.0) mg/dL AST 35 (5-37) U/L ALT 37 (0-40) U/L Alkaline Phosphatase 88 (39-117) U/L Total Protein 6.5 (6.5-8.0) g/dL Albumin 3.9 (3.5-5.0) g/dL Urine Color Dark Yellow Urine Appearance Clear Urine pH 6.0 (5.0-9.0) Ur Specific [place] >= 1.030 H (1.005-1.025) Urine Protein 30 (1+) H (Neg-Trace) mg/dL Urine Glucose (UA) Negative (Negative) mg/dL Urine Ketones 15 (Negative) mg/dL Urine Blood Negative (Negative) Urine Nitrite Negative (Negative) Ur Leukocyte Esterase Negative (Negative) Urine RBC 0-2 (0-2) /HPF Urine WBC 0-5 (0-5) /HPF Ur Squamous Epith Cells 0-2 (0-2) /HPF Urine Bacteria None Seen (None Seen) Hyaline Casts 0-2 (0-2) /LPF Urine Opiates Screen Not Detected (Not Detect) Ur Buprenorphine Scrn Not Detected (Not Detect) ng/mL Ur Oxycodone Screen Not Detected (Not Detect) ng/mL Urine Methadone Screen Not Detected (Not Detect) ng/mL Urine Fentanyl Screen Not Detected (Not Detect) Ur Barbiturates Screen Not Detected (Not Detect) Ur Phencyclidine Scrn Not Detected (Not Detect) Ur Amphetamines Screen Not Detected (Not Detect) U Benzodiazepines Scrn POSITIVE H (Not Detect) Urine Cocaine Screen Not Detected (Not Detect) U Marijuana (THC) Screen Not Detected (Not Detect) Ethyl Alcohol < 10 mg/dL Independent Interpretation I performed an independent interpretation of an: EKG (109 beats per minute otherwise normal ECG without dysrhythmia, AV leann blocks or ST-T changes to suspect underlying ACS, my independent interpretation) Critical Care Time Critical Care Time Critical Care Time: Yes Total Critical Care Time: 60 Attestation: Agitation which required IM droperidol and IM diazepam 03/03/25 0228 Rahul Luther MD Critical Care: The patient was critically ill with a high probability of imminent or life threatening deterioration. I spent greater than 30 minutes of discontinuous time evaluating the patient,delivering critical care at the bedside, discussing and evaluating pertinent data with consultants. Critical care time does not include time spent performing separately billable procedures or teaching. Total time spent performing critical care was 75 minutes. Discharge Plan Discharge Clinical Impression: Bipolar disorder, current episode manic severe with psychotic features Patient Disposition: Admitted As Inpatient Interventions: Admission Worksheet (ED) Last Done: 03/03/25 13:23 Discharge Date/Time: 03/03/25 13:24
[2025-03-01] MEDS: diazePAM 10 MG/2 ML CARTRIDGE 5 MG IM (12:55)
--- NOTE | 2025-03-01 13:26 | MHC.CARE ---
T/W spoke with Jess from [place] co-response who reported that Pt would be arriving on a Section 12a from the [place] court house. Pt was in police custody since Thursday for an arrest involving illicit substances (info provided from PD in ED). Pt went to court today where he was to be released. At that time Pt urinated on himself and took all his clothes off. Pt was reportedly naked on his knees praying in the court house and then urinated on himself again. At that time Pt became nonsensical. Pt has a history of powerlifting, using steroids and physical aggression towards others. Per Jess Pt has previous charges of arson and attempted murder towards his mother. Pt requested to transport to the hospital however was placed on a Section 12a at this time.
--- NOTE | 2025-03-01 13:33 | PC.NURSE ---
patient presents to the ED by ems, with [facility] SANCHEZ. patient was released from the court house when he started to exhibit manic behaviors, ie disrobing, public urination, speaking on god/vampires and stinky potatos . patient was placed into ED stretcher without proble, taken out of personal clothes and changed into hospital attire. ED security and [place] [employer] at bedside for mash filter cloth changer due to patient hx of aggression. patient cooperative but with fixated speech and talking with [place] [employer]. patient medicated per OCT with IM medication, has sitter 1:1 and security. patient allowed this RN to place o2 probe on finger for monitoring. patient resp even and unlabored, skin noted to be dry and intact at this time.
--- NOTE | 2025-03-01 15:30 | PC.NURSE ---
patient mother itzel called, left her phone number [phone]
--- NOTE | 2025-03-01 15:38 | PC.NURSE ---
patient sister gayatri isbell [phone]
--- OUTSIDE RECORDS SUMMARY | 2025-03-01 16:08 | XMS_ITS | Clinical Summary ---
Author Organization [facility] Address [address] [address] Phone Care Team Providers Care Product Safety Coordinator Name Role Phone Jason Schumacher MD Primary Care Provider Allergies No known active allergies Medications testosterone cypionate (DEPO-TESTOTERON E) 200 mg/mL injectionIndicat ions:Hypogonadot ropic hypogonadism,Low testosterone in male Inject 0.5 mL (100 mg total) into the muscle every 7 days. 4 mL 5 11/01/19 25 Active syringe with needle, safety (BD INTEGRA SYRINGE) 3 mL 22 gauge x 1 1/2 SyrgIndications: Hypogonadotropic hypogonadism,Low testosterone in male USE 1 EACH BY MISCELLANEOUS ROUTE NEEDED. INJECT WEEKLY 12 each 2 12/30/19 25 Active lisinopril (PRINIVIL,ZESTRI L) 20 MG tabletIndication s:Essential hypertension TAKE 1 TABLET BY MOUTH EVERY DAY 90 tablet 3 01/24/20 25 Active suvorexant (BELSOMRA) 10 mg tabletIndication s:Other insomnia Take 2 tablets (20 mg total) by mouth nightly at bedtime. 60 tablet 3 01/25/20 25 Active ibuprofen (ADVIL,MOTRIN) 800 MG tabletIndication s:Chronic pain of right knee TAKE 1 TABLET BY MOUTH EVERY 8 HOURS NEEDED FOR PAIN 50 tablet 1 01/28/20 25 Active Active Problems Problem Noted Date Diagnosed Date Bipolar disorder, current ep isode manic severe with psychotic features 11/01/2024 Assessment & Plan (11/01/2024 11:31 AM EDT): No signs of depression or raoul today on visit, if he feels he needs a referral to psychiatry we can set it up. Bipolar disorder, current ep isode mixed, severe, without psychotic features 11/16/2023 Assessment & Plan (10/25/2024 11:08 AM EDT): He stopped his psychiatric medicines. I recommend he follow up with his behavioral health team Mood disorder 11/11/2023 Assessment & Plan (11/11/2023 5:26 PM EDT): It is unclear what his dx is. I do not know who follows him for psychiatry. Of concern is that some medications have been changed during this admit. As he is New to me, I will defer any medication changes to be reviewed by PCP and psychiatry. He reports NOT taking Clonazepam 2mg po bid, Olanzapine 10mg po qd ( in the notes there is a 7.5mg dose listed as well) and trazodone 100mg po qhd / prn He IS taking Carbamazepine, Clonidine, Seroquel ( 300mg BID and 100mg QD ) and Bupropion. I will ask Nsg to review with PCP and psychiatry to ensure he is getting the appropriate regimen Closed fracture of shaft of right femur 11/11/19 Assessment & Plan (11/11/2023 5:21 PM EDT): He has seen ortho in f/u. Is currently NWB. Doing well. He did not mention any pain today. I am not sure if he is still taking oxycodone- none was mentioned in today's visit. Will ask Nsg to confirm will ask MA for last ortho note Next visit 11/19, he is aware He is currently getting lovenox and this will STOP 11/16/23 he is lee. Closed nondisplaced fracture of phalanx of right thumb 11/11/2023 Assessment & Plan (11/11/2023 5:17 PM EDT): Saw plastics as out pt- states xrays show good healing- currently NWB RUE as well will req last note next visit 11/23, he is aware Chronic pain of right knee 08/21/2022 Assessment & Plan (08/21/2022 2:42 PM EST): On inspection no derangements, will refer the patient to [place] [facility] and cover pain in the interim with ibuprofen 800 which he should use sparingly. Hypogonadotropic hypogonadism 05/19/2022 Assessment & Plan (10/31/2024 12:27 PM EDT): His free and total testosterone levels were elevated is possible that this may be so high because he had taken the injection of testosterone the day prior so he is was at the peak level. I try to discuss with him to do lab work at the trough level next time. I am not going to change the dose of the prescription because it is the first time it has been this high. He will return for follow-up in approximately 24 weeks and should do the lab work close to 2 weeks prior to the visit taking into account the trough level which will be on a Thursday since he injects every . Again lab work has to be done fasting. Assessment & Plan (11/11/2023 5:06 PM EDT): On Inj testosterone, cont same. He is reporting erectile dysfunction . He will address this with pcp at a f/u visit Assessment & Plan (05/18/2023 3:31 PM EDT): The patient had been using AndroGel 20 mg, I will increase it to 40 mg he will repeat lab work in 6 months. I sent medication to [address] which is patient preferred pharmacy. However, he may need prior authorization because AndroGel brand name. Assessment & Plan (08/21/2022 2:52 PM EST): Referring the patient back to endocrinology regarding his previous high level, he will need a different formulation since the current testosterone injectable is not available. Nonetheless he will still need prior to that prescription a level so that the testosterone could be at adjusted. Assessment & Plan (05/19/2022 10:11 AM EDT): The patient has suppressed gonadotropins as a result of anabolic hormone use. He states that this is the only thing that makes him feel good and be able to get the energy to do daily activities. He also states that he is able to attend the gym. I believe he is using too much testosterone 200 mg weekly and as a result his hemoglobin hematocrit levels are elevated. I am willing to prescribe testosterone he should use 100 mg weekly repeat lab work at least 2 weeks prior to the follow-up visit. I prescribed Clomid 50 mg daily in hopes of maintaining testicular volume and possibly maintaining FSH levels. Also requested CBC and lipid panel all lab work should be done fasting. I did explain to the patient that I need to have lab results every 6 months in order to continue prescribing the medication so he should definitely try to get this done 2 weeks prior to the visit Depression 11/06/2021 Assessment & Plan (08/21/2022 2:40 PM EST): That diagnosis depression could be changed now to bipolar disorder. He is on lithium and Zyprexa, Thorazine. We will take him off of the clonidine and put him on lisinopril to get better efficacy to lower blood pressure into normal limits. Low-sodium diet. He is requesting some ibuprofen and he should use it sparingly for both blood pressure and lithium. Assessment & Plan (12/06/2021 9:52 AM EDT): Major depression is being managed through his psychiatrist and indirectly were helping through the trazodone and assessment of his testosterone levels with subsequent expected treatment. Assessment & Plan (11/07/2021 3:38 PM EDT): First Appointment with Therapist tomorrow [facility] scheduling appointment for psychiatrits The PHQ 9 score was positive but the patient has no plan or indication that he would harm himself. There is a plan in place to treat his depression. The trazodone will help with the depression beyond being used as a sleep aid. Cyst, dermoid, scalp and neck 10/03/2021 Assessment & Plan (11/06/2021 3:43 PM EDT): Surgery for removal scheduled in 2 days Assessment & Plan (10/03/2021 1:34 PM EST): Cannot assess the neck mass over the phone so this is more a diagnosis of suspicion. We will refer the patient per his wishes to a general surgeon, going to concern to either biopsy or excise the cyst/mass in question. Routine general medical exam ination at a [facility] facility 09/03/2020 Assessment & Plan (04/06/2024 2:47 PM EDT): He is making great strides in self-improvement and hoping that this will translate into results as it pertains to his weight. Weight loss will definitely improve his lumbar pain and decompression of the spine. We will obtain a hemoglobin A1c to see if he is showing signs of prediabetes or diabetes. These labs for this lab can be added onto the labs that were ordered by endocrinology. His blood pressure is a little bit elevated in the setting of hyperdynamic state presumably associated with his weight. We are encouraging him to check his blood pressure at home, it is not high enough to warrant immediate action will follow- up in 6 months. Assessment & Plan (09/03/2020 1:13 PM EST): PHYSICAL EXAM Is positive for mild tachycardia and elevated blood pressure. Patient is overweight for his height but also very massive build from power lifting. Patient has a fairly good idea on diet and exercise so we did not need to give him any pointers on that regard. We will obtain a lipid profile a CBC Chem-7 LFTs and a testosterone level to ascertain his health. Sleep disturbance 09/03/2020 Assessment & Plan (12/06/2021 9:52 AM EDT): The trazodone at 300 mg working well for the patient's insomnia and subsequently he has more energy and his mood is lifted. We will continue the dosing as is and follow-up in 6 months for a 15-minute visit. Other insomnia 03/11/2019 Assessment & Plan (11/01/2024 11:31 AM EDT): He continues on the sleep medicine is helping with keeping him regular. No overt signs of bipolar disorder, we can refer him to psychiatry if he wishes. Assessment & Plan (11/11/2023 5:13 PM EDT): Will ask if he desires a ref to sleep medicine to eval currently Rx Ambien for this- Was previously taking Guanfacine 2mg for sleep but this was changed while in patient- due to not having in on formulary Assessment & Plan (11/07/2021 3:37 PM EDT): Patient states that the trazodone works best out for 100 mg nightly. He wakes up well rested and so we can prescribe him the trazodone at 4 100 mg tablets nightly. Assessment & Plan (10/03/2021 1:33 PM EST): The trazodone is not working and that is a medication that we are writing for his sleep. Therefore discontinue the trazodone and will trial patient on Ambien with the hope that it is just short-term. 5 mg for 14 days. It is understandable if he needs 10 mg given his height and weight. We will start him however at 5 mg. Snoring 09/01/2018 Assessment & Plan (11/11/2023 5:12 PM EDT): It was rec in house to have the pt have a out par sleep study.did not get to discuss. Will ask nsg to call and if yes pend the order. He is Rx ambien 10mg po qhs for this. He was previously taking Guanfacine 2mg to help with sleep- but this was changed due to not having in the hospital. Assessment & Plan (09/03/2020 1:10 PM EST): With his size, history of snoring, request for sleep medicine consult we will set the patient up over at [facility] sleep medicine with suspicion of MICHAEL. In regards to his current sleep patterns we will help him back with the trazodone at 150 mg nightly. Some of the difficulty falling asleep has to do still with the of his girlfriend back in February of last year. Essential hypertension 09/01/2018 Assessment & Plan (11/01/2024 11:30 AM EDT): Blood pressure moderately elevated so encouraging him to check it at home if he can get a larger cuff. Will certainly check it back in 6 months and will follow the blood pressures as he is being seen by endocrinology. Continue the lisinopril as prescribed. Assessment & Plan (10/25/2024 11:15 AM EDT): Uncontrolled. Stopped meds. Asked him to Fu with PCP Assessment & Plan (11/11/2023 5:17 PM EDT): Controlled cont same. He would like to discuss a ref to cardiology to make sure his heart is ok, I advised him to discuss with pcp at f/u Assessment & Plan (08/21/2022 2:39 PM EST): The patient can come off of the Catapres and restart lisinopril but will stay off of the Norvasc. He will convey those changes to his psychiatrist. We will follow-up with him on a physical exam in 3 months. Assessment & Plan (11/06/2021 3:44 PM EDT): Elevated on arrival, 128/78 on recheck Encouraged to eat low sodium diet Assessment & Plan (10/03/2021 1:30 PM EST): Before discontinuing the Norvasc I like to see what his blood pressure is on the current arrangement which is Norvasc, clonidine, Diovan. So we will see the patient back in third week of October and at that time make an adjustment. Assessment & Plan (09/03/2020 1:09 PM EST): Blood pressure is very elevated and needs to be controlled. We will restart the patient on antihypertensives but this time we will switch from lisinopril which was ineffective to valsartan. If the valsartan is indeed short at the pharmacy we could use Cozaar instead. We will start at 160 mg and check electrolytes kidney function, repeat Chem-7 on follow-up visit for blood pressure which will be about 3 weeks. Some factors that could lead to hypertension include excessive testosterone but we will assess that today as well. Low testosterone in male 09/01/2018 Assessment & Plan (05/02/2024 12:29 PM EDT): Testosterone levels are within the reference range with the use of 100 mg intramuscular weekly. I am not going to make any changes. He should repeat lab work fasting prior to the follow-up visit in 6 months. I informed the patient that if he cannot physically come to the visit in 6 months then he should do lab work and make a telephone visit or video visit. Assessment & Plan (10/06/2023 10:20 AM EST): The dose of AndroGel 40 mg shows that his free testosterone levels are in the reference range. But he feels that his testosterone levels are too low then the lower side of normal. He wants to switch back to testosterone cypionate. I told him that previously he was getting too much testosterone. I will give him 100 mg week. He would like 150 but I have refused. He states that he is not getting erections. I informed him that testosterone should not cause erections is just for libido and wellbeing. I do not prescribe phosphodiesterase inhibitors he should speak to a urologist or his primary care physician for that particular prescription. He feels that estradiol levels are high. I have not check estradiol levels but I will. He wants aromatase inhibitors which I usually do not prescribe either. So at this point I will check estradiol and lab work like I usually do. He would like to return for follow-up in 3 months as opposed to 6 months and because I have made a change in his regimen I will allow it. Normally we do 6 months and it is not because it is a controlled substance. Repeating levels sooner than that when the levels are in the reference ranges not necessary. He will return for follow-up in 3 months obtain lab work fasting at least 2 weeks prior to the visit. Assessment & Plan (08/21/2022 2:41 PM EST): He wanted me to call in a different brand of testosterone for injections. But he just recently gotten out of the [facility] where he had received testosterone and not only that his testosterone levels previously were very elevated. He has been seeing [facility] endocrinology so I have referred him back to that office regarding the specific request. Assessment & Plan (03/26/2022 2:11 PM EDT): The patient with the use of chronic anabolic hormones for period of 10 years which she discontinued on 10/2020. He is now symptomatic has low total testosterone levels he did lab work fasting. I will at this point check gonadotropin levels, prolactin repeat testosterone levels and DHEA-S. I will request lipid panel, comprehensive and CBC as well. He should do all lab work fasting first thing in the morning. Once I reviewed the levels then we consider testosterone therapy. If the patient receives testosterone's prescription then he needs to follow every 6 months. Assessment & Plan (12/06/2021 9:52 AM EDT): Repeat liver enzymes, were elevated in August of last year, if still elevated will obtain an ultrasound of the liver. Assessment & Plan (11/07/2021 3:39 PM EDT): We will repeat liver function panel later on and obtain ultrasound liver if appropriate. No jaundice on exam, no immediate pathology. Assessment & Plan (10/03/2021 1:32 PM EST): I did discuss his labs with him from August. The liver enzymes were elevated and also blood counts which 1 might see with testosterone use. His testosterone levels low but I believe he had been using anabolic steroids and then had given them up just prior to that lab being obtained. His own production of testosterone will be suppressed then and therefore the constellation of liver enzymes being elevated, blood counts being elevated and testosterone low. We can repeat that in the liver enzymes and perhaps obtain a liver ultrasound. Assessment & Plan (09/03/2020 1:12 PM EST): We will obtain aside from the liver function panel also testosterone level. The testosterone is a little bit late in the morning so depending on the outcome we might retest it properly. Class 3 severe obesity with serious comorbidity and body mass index (BMI) of 50.0 to 59.9 in adult Overview (05/31/2024): WHO Class III, AACE stage 1 Assessment & Plan (11/01/2024 11:30 AM EDT): Still in stage III obesity though he is very muscular so the BMI is somewhat overstated. We are encouraging him to continue with his lifestyle changes we hope that he can keep it up and commended him on his efforts. Assessment & Plan (10/25/2024 11:14 AM EDT): I'm concerned about his wellbeing in terms of mental health & cardiac risk. He stopped all meds except Testosterone & Zepbound. His presentation is concerning for raoul. Health is more than exercise. Holistic approach to obesity treatment includes mental & emotional well being, self care, eating nutritious & diverse foods & working w all members of health team. GLP1RA, when used, should be within that context so at this point I dont want to continue prescribing his Zepbound. I recommend he see his PCP & psychiatric team & restart meds. He says he may see them but feels they dont listen to him & he wont take medications again. Assessment & Plan (07/26/2024 12:22 PM EST): He will be changing to Zepbound because of formulary change. Encouraged to continue with exercise and dietary changes. Labs ordered. FU 12 weeks. Assessment & Plan (05/31/2024 4:40 PM EDT): Pt was educated on the pathophysiology of obesity, which is a chronic, relapsing, often progressive neuroendocrine disease with behavioral components. We discussed treatment approaches including lifestyle changes, pharmacotherapy & bariatric surgery. We discussed their personal treatment goals. We discussed targeting a weight loss goal of 5-10% over the next 6 months as this modest amount of weight loss has been shown to decrease blood pressure, insulin resistance, sleep apnea, liver inflammation, arthritic pain and improve dyslipidemia. Patient was given the initial meal plan and exercise recommendations. I recommend patient work with our dietitian, Sarita Philippe RD and have asked them to schedule an appt. I have recommended the following Anti-Obesity Medication: Semaglutide The patient has completed > 6 months of efforts focused on dietary and lifestyle changes and has been unsuccessful in reaching their weight loss goals. They will start at start 0.25 mg subq weekly, then if tolerated we can titrate dose q 4 weeks. I have explained that this medication decreases appetite & food cravings and increases feeling of fullness. I have have reviewed the following possible side effects: Nausea, vomiting, constipation, gastroparesis, SBO, pancreatitis, gallstones, suicidal thoughts, diabetic retinopathy, optic neuropathy, low blood sugar and in rat studies an increased risk of medullary thyroid cancer and MEN2. This medication is not recommended in patients with a personal or family history of medullary thyroid cancer or multiple endocrine neoplasia 2A or 2B. We also discussed health insurance inflicted barriers to obtaining GLP1RA and possible need for prior authorization & appeal. He states that if Wegovy is not covered by insurance he would consider paying [id number] for a GLP-1. If this is the case I would recommend that he start with Zepbound vials through [employer] direct. Assessment & Plan (11/11/2023 5:05 PM EDT): He verbalized a desire to begin ozemic. Advised him to make a f/u appt with PCP to discuss. He is morbidly obese and weight reduction is advised / enc Assessment & Plan (12/06/2021 9:51 AM EDT): Obtain a testosterone level and refer to endocrinology if low. This would lead possibly to measured reconstitution of his pituitary testicular axis and would help with weight loss indirectly. 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 He is overweight for his height for sure and perhaps obese though it is difficult to determine. He is still doing quite a bit of exercise but has stated that he would go back and do more cardiovascular workouts aside from just power lifting which is one of his sincere hobbies/sports. Encounters Date Type Department Care Team Description 01/27/2025 Refill [facility] Internal Medicine [address] [place] [address] Jason Schumacher MD Medication Refill 01/27/2025 Telephone [facility] Internal Medicine [address] [place] [address] Jason Schumacher MD Medication Prior Authorization (suvorexant (BELSOMRA) 10 mg tablet) 01/24/2025 Orders Only [facility] Internal [facility] [address] [place] [address] Jason Schumacher MD Other insomnia 01/23/2025 Refill [facility] Internal [facility] [address] [place] [address] Jason Schumacher MD Medication Refill 12/27/2024 [place] [facility] [place] [address] [place] [address] [place] [address] Sri Chaudhari MA Medication Prior Authorization (Testosterone) 12/23/2024 Refill [facility] Internal [facility] [address] [place] [address] Jason Schumacher MD Medication Refill 12/20/2024 Refill [facility] Internal [facility] [address] [place] [address] Jason Schumacher MD Medication Refill from Last 3 Months Immunizations Immunization Administration Dates Next Due Tdap 12/06/2021 Family History Medical History Relation Comments Depression Father Bipolar disorder Mother Brain tumor Mother Hyperlipidemia Mother Hypertension Mother Thyroid disease Mother Relation Status Comments Father Mother Alive Social History Tobacco Use Types Packs/Day Years Used Date Smoking Tobacco: Never Smokeless Tobacco: Never Tobacco Cessation:Counseling Given: Not Answered Alcohol Use Standard Drinks/Week Comments No 0 (1 standard drink = 0.6 oz pur e alcohol) Child or Family Care Answer Date Record ed Do you have problems with on e of the following making it difficult for you to work, study, or receive health care? No 03/30/2024 Education Answer Date Recorded Are you interested in help w ith more adult education (for example, completing high school, GED, job training, learning the Hungarian language, technical skills, or developing parenting skills)? No 03/30/2024 Are you concerned about learning? Not on file 03/30/2024 No 03/30/2024 Yes 03/30/2024 Food Answer Date Recorded Within the past 6 months we worried whether our food would run out before we got money to buy more. Sometimes True 024 Within the past 6 months the food we bought just didn't last and we didn't have enough money to get more. Sometimes True 03/11 Residential Stability Answer Date Recor ded What is your housing situation today? I have kade sing 03/30/2024 How many times have you move d in the past 12 months? Zero (I did not move) 03/30/2024 Paying for Meds Answer Date Recorded Do you have trouble paying for medicines? No 03/30/2024 Paying Utility Bills Answer Date Record ed Do you have trouble paying your heating or elect ricity bill? Yes 03/30/2024 Transportation Answer Date Recorded Has the lack of transportati on kept you from medical appointments or from getting medications? No 03/30/2024 Unemployment Answer Date Recorded Are you currently unemployed or working on a part-time or temporary basis, and looking for work? Yes 03/30/2024 Digital Access Answer Date Recorded No 03/30/2024 Yes 03/30/2024 Do you have reliable internet access at home? Ye s 03/30/2024 Do you have a device (e.g., phone, tablet, computer) with a working camera? Yes 03/30/2024 SNAP & WIC Answer Date Recorded Do you receive benefits from SNAP (the Supplemental Nutrition Assistance Program) or the Food Stamp Program? Yes 03/30/2024 SNAP is a free program, interested in learning m ore? Not on file 03/30/2024 Can we help you enroll in SNAP? Not on file 03/30/2024 Benefits received from WIC? Not on file 03/11 WIC is a free program, interested in learning mo re? Not on file 03/30/2024 Can we help you enroll in WIC? Not on file 0 03/30/2024 Intimate Partner Violence Answer Date R ecorded Denied Basic Needs Not on file 03/30/2024 In the past 12 months have y ou been in a relationship with a person who hurts, threatens, or tries to control you? No 03/30/2024 Worried food would run out Not on file 03/30 In the past 12 months have y ou been in a relationship with a person who hurts, threatens, or tries to control you? No 03/30/2024 Sex and Gender Information Value Date Recorded Sex Assigned at Male 03/23/2022 7:35 PM EDT Legal Sex Male 2:59 PM EST Gender Identity Male 03/23/2022 7:35 PM EDT Sexual Orientation Straight 03/23/2022 7: 35 PM EDT Last Filed Vital Signs Vital Sign Reading Time Taken Comments Blood Pressure 138/88 11/01/2024 11:12 AM EDT Pulse 94 11/01/2024 10:31 AM EDT Temperature 36.2 C (97.2 F) 11/01/2024 10:31 AM EDT Respiratory Rate 16 11/01/2024 10:3 1 AM EDT Oxygen Saturation 99% 11/01/2024 10: 31 AM EDT Inhaled Oxygen Concentration - - Weight 156.3 kg (344 lb 9.6 oz) 025 10:31 AM EDT Height 177.8 cm (5' 10 ) 11/01/2024 10: 31 AM EDT Body Mass Index 49.44 11/01/2024 10:31 AM EDT Plan of Treatment Upcoming Encounters Date Type Department Care Team (Late st Contact Info) Description 04/17/2025 12:10 PM EDT Office Visit [facility] [address] [place] [phone] Yifan Pope DO [address] [place] [id number] 04/24/2025 10:30 AM EDT Office Visit [facility] [address] [place] [phone] Jason Schumacher MD [address] [place] [address] Health Maintenance Due Date Last Done Comments COVID-19 VACCINE ( season) 2024 12/27/2020, 11/30/2020 DEPRESSION SCREENING 03/30/2025 03/30/2024, 10/31/19 BLOOD PRESSURE 05/04/2025 11/01/2024 CREATININE LEVEL 10/21/2025 10/21/2024, , 10/19/2023, Additional history exists POTASSIUM LEVEL 10/21/2025 10/21/2024, 07/2 04/2024, 10/19/2023, Additional history exists SCREENING FOR DIABETES 10/22/2027 , 04/25/2024, 08/28/2018 LIPID PANEL 10/21/2029 10/21/2024, 04/10, 09/25/2023, Additional history exists Adult Td,Tdap Booster 12/07/2031 12/06/2021 HEPATITIS C SCREENING Completed 12/06/2021, 022 HIV ONE-TIME SCREENING (18-65 YEARS) Completed 12/06/2021 SMOKING STATUS SCREENING (Once After 26 Yrs) Completed 11/01/2024 HEPATITIS A VACCINES Aged Out No long er eligible based on patient's age to complete this topic HIB VACCINES Aged Out No longer eligi ble based on patient's age to complete this topic MENINGOCOCCAL VACCINES (ACWY) Aged Out No longer eligible based on patient's age to complete this topic MENINGOCOCCAL VACCINES (B) Aged Out N o longer eligible based on patient's age to complete this topic PNEUMOCOCCAL VACCINES (0-49 years) Aged Out No longer eligible based on patient's age to complete this topic Medical Devices Not on file Procedures Procedure Name Priority Date/Time Associated Diagnosis Comments LIPID PANEL Routine 10/21/2024 10:50 AM EDT Hypogonadotropic hypogonadism COMPREHENSIVE METABOLIC PANEL Routine 10/21/2024 10:50 AM EDT Class 3 severe obesity with serious comorbidity and body mass index (BMI) of 50.0 to 59.9 in adult, unspecified obesity type HEPATITIS C ANTIBODY, QUALITATIVE Routine 12/06/2021 9:51 AM EDT Need for hepatitis C screening test OUTSIDE GLUCOSE FASTING Routine 08/28/2018 from Last 3 Months or Most Recently Relevant to Health Maintenance Results * (ABNORMAL) Comprehensive metabolic panel (10/21/2024 10:50 AM EDT) SODIUM 138 133 - 146 mmol/L [facility] POTASSIUM 3.6 3.3 - 5.1 mmol/L [facility] CHLORIDE 101 96 - 108 mmol/L [facility] CO2 27 21 - 35 mmol/L [facility] BUN 10 6 - 19 mg/dL [facility] CREATININE 0.90 0.5 - 1.5 mg/dL [facility] GLUCOSE 60(L) 70 - 99 mg/dL [facility] ALBUMIN 3.9 3.9 - 4.8 g/dL [facility] TOTAL PROTEIN 6.9 6.5 - 8.0 g/dL [facility] CALCIUM 9.5 8.4 - 10.3 mg/dL [facility] ALKALINE PHOSPHATASE 80 39 - 117 U/L [facility] TOTAL BILIRUBIN 0.6 0.0 - 1.2 mg/dL [facility] AST 39(H) 0 - 37 U/L [facility] ALT 41(H) 0 - 40 U/L [facility] GLOBULIN 3.0 1 - 4.8 g/dL [facility] EGFR 115 >59 mL/min/1.7 3m2 [facility] Comment:Estimated glomerular filtration rate calculated using the CKD-EPI refit equation. ANION GAP 14 10 - 20 mmol/L [facility] Blood 10/21/2024 10:5 0 AM EDT 10/21/2024 10:58 AM EDT us Rosy Lyles [facility] LAB BLOOD ORDERABLES Final Result [facility] [address] [place] [address] * Lipid panel (10/21/2024 10:50 AM EDT) HDL 33 mg/dL [facility] Comment: Interpretation <40 mg/dL: Low HDL cholesterol (major risk factor for CHD) Greater than or equal to 60 mg/dL: High HDL cholesterol ( negative risk factor for CHD) HDL - cholesterol is affected by a number of factors, e.g. smoking, excerise, hormones, sex and age. CHOLESTEROL 134 0 - 240 mg/dL [facility] TRIGLYCERIDES 111 30 - 160 mg/dL [facility] LDL 79 50 - 129 mg/dL [facility] Comment: LDL levels in terms of risk for coronary heart disease: <100 mg/dL: Optimal 100-129 mg/dL: Near or above optimal 130-159 mg/dL: Borderline high 160-189 mg/dL: High >190 mg/dL: Very High CARDIAC RISK RATIO 4.1 3.4 - 5.0 C [facility] Blood 10/21/2024 10:5 0 AM EDT 10/21/2024 10:59 AM EDT Yifan Pope DO LAB BLOOD ORDERABLES Final Resul t Performing Organization Address [facility] Co de Phone Number [address] [phone] * Hepatitis C antibody, qualitative (12/06/2021 9:51 AM EDT) HCV NON-REACTIV E NON-REACTI VE [facility] Blood 12/06/2021 9:51 AM EDT 12/06/2021 9:54 AM EDT us Jason Schumacher MD LAB BLOOD ORDERABLES Final Resul t Performing Organization Address [facility] Co de Phone Number [address] [address] * (ABNORMAL) Outside Glucose,Fasting (08/28/2018) Glucose, fasting - External 146(A) 65 - 99 mg/dL us Historical Provider LAB BLOOD ORDERABLES Shari l Result from Last 3 Months or Most Recently Relevant to Health Maintenance Insurance [address] [address] ACO [facility] [place] [address] [place] [address] [place] [address] ACO Care Teams Product Safety Coordinator Relationship Specialty Start Date End Date Jason Schumacher MD [address] [place] [phone] (work) [email or web address] PCP - General Internal Medicine 08/27/20 Additional Source Comments The information contained in this document represents components of the legal health record. It is not the complete legal health record.[facility]
--- OUTSIDE RECORDS SUMMARY | 2025-03-01 16:08 | XMS_ITS ---
Author Name [facility] Organization Unknown History of Medication Use Medication Directions Dispensed Refills Start Date End Date Stat traZODone HCl 50 MG traZODone HCl 50 MG 03/27/20 active QUEtiapine Fumarate 100 MG QUEtiapine Fumarate 100 MG active QUEtiapine Fumarate 300 MG QUEtiapine Fumarate 300 MG active Encounters Encounter Type Encounter Reason Primary Diagnosis Location Date Ambulatory [facility] 03/27/2023 Ambulatory [facility] 03/03/2023 Inpatient MENTAL HEALTH [facility] 02/12/2023 Emergency Other skin changes [facility] 02/10[facility]2023 Ambulatory ALTERED MENTAL STATUS UNKNOWN ETIOLOGY [facility] 08/03/2021 Care Team Organization Name Specialty Phone Email Start Date End Da te [facility] IAIN WILSON Primary Care 03/24/2023 [facility] DR. ROSARIO Primary Care 02/27/2023 024 [facility] 02/12/2023 3 [facility] OLIVA MATTHEWS Primary Care 02/11/20232022 [facility] Dis[facility] 02/10/2023 [employer] EITAN ALVARADO Primary Care 08/05/2021 4 [facility] PIPARAS ALVARADO Primary Care 08/03/2021 1
--- NOTE | 2025-03-01 17:20 | PC.NURSE ---
patient remains asleep, resp even and unlabored, patient has o2 sat monitor on and bp cuff now. patient has sitter 1:1 for safety. medical staff adviced by ED provider not to attempt blood draw due to patient aggressive tendencies.
--- NOTE | 2025-03-01 18:24 | PC.NURSE ---
patient mom called requesting update, patient still asleep after IM medications, mom informed patient is stable at this time. patient mom requested to visit, after talking with ED charge nurse and security it was discussed that patient should have no visitors tonight. family updated with this answer and was verbally upset about patient in half-way this past week and she doesnt know what they did to him in half-way , this RN informed patient mom that I do not know the circumstances of patients half-way stay or what they consisted of, only what has occurred in ER. patient not able to consent to anyone having information on the phone or visitors. directed mothers call to CARE team at this time.
--- NOTE | 2025-03-01 19:30 | PC.NURSE ---
Addendum entered by Luiza Gorman RN 03/02/25 02:55: pt allowed EDT to draw labs. Pt resting in stretcher at this time, calm and cooperative. sitter in place. plan of care ongoing Addendum entered by Luiza Gorman RN 03/02/25 02:54: reddened, swollen rash noted in between pts thighs and around groin area. MD notified and aware at this time. Addendum entered by Luiza Gorman RN 03/02/25 02:51: 0100- pt calm and redirectable still making attempts to get out bed and wander the ER and into pt rooms. pt intermittently praying out loud. security present at this time. pt medicated per oct. Addendum entered by Luiza Gorman RN 03/02/25 02:49: 0000- pt awoke from sleep, urinated all over room, trying wandering into other pt rooms. Pt redirectable yet still making attempts to get out of bed and wander. Pt medicated per oct. Original Note: assumed care for pt at this time. pt sleeping symmetrical rise and fall of chest and unlabored respirations noted. pt on monitor VSS. sitter is in place. plan of care ongoing
[2025-03-02] VITALS (20 sets, daily range): BP systolic 153–177; BP diastolic 88–106; PULSE 82–122; RESP 15–20; TEMP 36.4–37.1; O2SAT 93–99
[2025-03-02 02:43] LABS: Hematocrit 45.4 % (42.0-52.0); Hemoglobin 15.9 g/dl (14.0-18.0); Imm Gran Abs Auto 0.04 X10*3/uL (0.00-0.03); Imm Gran Pct Auto 0.3 % (0.0-0.4); Lymphocytes Absolute Auto 1.0 X10*3/uL (1.2-4.9); MANUAL DIFF FLAG NO; Mean Corpuscular HGB Conc 35.0 g/dl (31.0-36.0); Mean Corpuscular Hemoglobin 28.9 pg (27.0-33.0); Mean Corpuscular Volume 82.4 fL (80.0-98.0); NRBC Abs Auto 0.000 X10*3/uL (0.0-0.012); NRBC Pct Auto 0.0 /100WBC (0.0-0.2); Platelet Count 258 X10*3/uL (160-400); Red Blood Count 5.51 X10*6/uL (4.60-5.80); White Blood Count 12.7 X10*3/uL (4.8-10.8)
[2025-03-02 03:07] LABS: Alanine Aminotransferase 37 U/L (0-40); Albumin Level 3.9 g/dL (3.5-5.0); Alkaline Phosphatase 88 U/L (39-117); Anion Gap 14 (12-20); Aspartate Amino Transferase 35 U/L (5-37); Blood Urea Nitrogen 14 mg/dL (9-16); Calcium 9.0 mg/dL (8.4-10.2); Carbon Dioxide 25 mmol/L (22-29); Chloride 109 mmol/L (96-108); Creatinine Clr Calc Pharmacy 176.9; Estimated Glomerular Filt Rate > 60; Potassium 3.6 mmol/L (3.3-5.1); Sodium 144 mmol/L (135-145); Total Protein 6.5 g/dL (6.5-8.0)
--- NOTE | 2025-03-02 07:17 | PC.NURSE ---
This Rn assumed care of patient @ 0700. Patient noted to be getting out of bed at times. redirected easily back into bed. Suicide scale completed. Patient SI HI. Red rash noted in groin area. Patient provided with bath wipes to clean up. Denies pain, sob, n/v, dizziness.
--- NOTE | 2025-03-02 08:12 | PC.NURSE ---
Patient mother Tory called wanting update on patient. Patient gave permission to speak with Tory. Tory updated on condition at this time.
--- NOTE | 2025-03-02 08:22 | MHC.CARE ---
Pt will be an inpatient psychiatric bedsearch
--- NOTE | 2025-03-02 09:15 | PC.NURSE ---
Urine sample needed from patient. Patient has been urinating on the floor since admission to ED. Patient agreed to urinate in urinal. Patient unable to urinate in urinal. Notified provider, received order to straight cath patient. Patient compliant with straigh cath, patient output 600 ml lindsey urine. Denies urinary symptoms. Sample collected and sent to lab. Patient then proceeded to urinate on floor. Patient and floor cleaned up. Patient continues to get out of bed but easily redirected
[2025-03-02 09:19] LABS: Appearance Urine Clear; Glucose Urine UA Negative (Negative); PH 6.0 (5.0-9.0); Specific Gravity - Urine >= 1.030 (1.005-1.025); UMIC TRIGGER UACC YES
[2025-03-02 09:28] LABS: Cannabinoid Screen Urine Not Detected (Not Detect)
--- NOTE | 2025-03-02 09:46 | PC.NURSE ---
Patient became unredirectable attempting to get into BH POD. Patient restless with flat affect, no aggression. Provider notified, order for droperidol given to patient IM right deltoid. Patient cooperative with medication administration. Patient began stripping clothes off, attempted to redress patient continued to throw clothes on the floor. Attempted to obtain vital signs. Patient would remove BP cuff before collecting BP. Patient still requiring redirection into bed. sitter present at this time
--- NOTE | 2025-03-02 10:01 | PC.NURSE ---
Patient continuing to remove clothing and attempting to exit room. Patient continues to refuse BP
--- NOTE | 2025-03-02 10:16 | PC.NURSE ---
Patient laying in bed naked with tongue sticking out, denies pain. Patient continues to remove clothing and refuse BP.
--- NOTE | 2025-03-02 10:31 | PC.NURSE ---
Patient continues to attempt to leave room, somewhat redirectable. Clothes remain on at this time. Patient still refusing BP
--- NOTE | 2025-03-02 11:15 | PC.NURSE ---
This RN spoke with Pharmacist Jimi at [facility] to attempt to reconcile medications. Chart updated to reflect
--- NOTE | 2025-03-02 14:51 | ECG_ITS ---
Test Reason : EVAL Blood Pressure : */* mmHG Vent. Rate : 109 BPM Atrial Rate : 109 BPM P-R Int : 148 ms QRS Dur : 88 ms QT Int : 356 ms P-R-T Axes : 38 28 -4 degrees QTcB Int : [address] & T wave abnormality, consider inferior ischemia Abnormal ECG When compared with ECG of 22-Dec-2010 13:01, ST-T changes noted Referred By: Mansoor Atkins Electronically Signed By: Edison Green
--- NOTE | 2025-03-02 15:33 | PC.NURSE ---
Patient became more agitated refusing to stay in his room and stripping his clothes off. Patient unredirectable. Administered IM versed and IM geodon.
--- NOTE | 2025-03-02 15:48 | PC.NURSE ---
Patient remains agitated , pacing room naked praying to god still unredirectable
--- NOTE | 2025-03-02 16:03 | PC.NURSE ---
Patient still agitated but somewhat redirectable, keeping clothes on
--- NOTE | 2025-03-02 16:18 | PC.NURSE ---
Patient calm and in bed awake. Denies pain
--- NOTE | 2025-03-02 16:33 | PC.NURSE ---
Patient remains calm still in bed with clothes on watching tv
--- NOTE | 2025-03-02 17:25 | MHC.EDTECH ---
delay on EkG do to ekg equipment being used. Nurse aware
--- NOTE | 2025-03-02 17:45 | PC.NURSE ---
Patient naked sitting on other patients bed
--- NOTE | 2025-03-02 18:00 | PC.NURSE ---
Patient naked pacing around room not redirectable
--- NOTE | 2025-03-02 18:15 | PC.NURSE ---
Patient removed clothing and attempting to wander ED. Patient not redirectable
--- NOTE | 2025-03-02 18:30 | PC.NURSE ---
Patient redirectable back to bed. Clothes remain on at this time. Patient refuses vitals. Able to record respirations
--- NOTE | 2025-03-02 18:45 | PC.NURSE ---
Patient resting in bed at this time. Calm and cooperative. Clothes remain on at this time. Patient allowed vitals to be taken
--- NOTE | 2025-03-02 19:08 | PC.NURSE ---
Patient refused ativan, patient took pills and threw them in his water. Provider notified.
--- NOTE | 2025-03-02 19:14 | PC.NURSE ---
Patient naked attempting to sit on other patients beds.
--- NOTE | 2025-03-02 19:31 | PC.NURSE ---
assumed care of pt, pt resting, even and unlabored respirations.
--- NOTE | 2025-03-02 20:34 | PC.NURSE ---
this rn spoke to Lien BIOMEDICAL EQUIPMENT TECH at this time, per BIOMEDICAL EQUIPMENT TECH, pt needs repeat ekg in am. pt remains resting in stretcher, no acute distress noted, sitter at bedside
--- NOTE | 2025-03-02 22:36 | PC.NURSE ---
pt remains resting in stretcher, no acute distress noted, sitter at bedside.
[2025-03-03] VITALS (21 sets, daily range): BP systolic 129–162; BP diastolic 64–99; PULSE 64–116; RESP 15–20; TEMP 36.6–36.9; O2SAT 92–99
--- NOTE | 2025-03-03 01:55 | PC.NURSE ---
pt awake and active at this time, locking self in bathroom, hitting self and playing in the sink. security called to beside. per charge accounts audit clerk, okay to place pt in pod for safety. pt walked to pod with this rn and security for safety of pt and staff. pt in POD playing in the toilet, attempting to take a shower and playing in the bathroom, Gladys [facility] called to POD, pt redirected back to main ed and given IM medications. pt continues to pace around the ed, remove feliciano wipes from wall and scrub body with them, security remains at bedside.
--- NOTE | 2025-03-03 02:15 | PC.NURSE ---
pt continues to pace around room and hit self with hands, sitter remains at bedside and pt redirected to stay in room at this time, unable to obtain vitals
--- NOTE | 2025-03-03 02:25 | PC.NURSE ---
pt attempting to drink hand sanitzer and rub feliciano wipes on head, pt given water and both items removed from pt room
--- NOTE | 2025-03-03 02:45 | PC.NURSE ---
one vitals obtained for pt, pt walked self to bathroom, took gown off and attempted to flush it in the toilet, and attempted to place gown on pt and pt removed it. dr. Rodriguez aware at this time
--- NOTE | 2025-03-03 03:12 | PC.NURSE ---
pt in room in stretcher, sitter at bedside, respirations even and unlabored
--- NOTE | 2025-03-03 05:00 | PC.NURSE ---
pt awake and wandering at this time, attempting to stick hands in sharps container. Sharps container removed from room at this time, pt redirectable from hallway into room.
--- NOTE | 2025-03-03 06:03 | PC.NURSE ---
at this time, pt opening and closing curtain, pt grabbed onto the curtain and tugged on it which led to part of the curtain breaking. Environmental at bedside and took down curtain. cc Gladys aware
[2025-03-03] MEDS: OLANZapine 10 MG VIAL IM (06:25)
--- NOTE | 2025-03-03 06:29 | PC.NURSE ---
pt continues to get naked in room, get on all fours in bed, with naked bottom in the air saying inappropriate words. unable to redirect at this time. IM medications administered
--- NOTE | 2025-03-03 07:15 | PC.NURSE ---
Pt is currently calm, resting with eyes closed. VSS.
--- NOTE | 2025-03-03 07:17 | PHA.MEDREC ---
Pharmacy Consult ? Medication Reconciliation Pharmacy has completed the medication reconciliation. RN Chris had confirmed divalproex 1500 mg at bedtime, olanzapine with instructions of see instructions and trazodone 300 mg at bedtime however there were no claims in the last 2 years to support this, RX audit shows RN confirmed med list last done in 2022. This [facility] removed these medications and redid med list with current claims per [facility]. Patient is AMS and patient has asked to not contact his family per his RN last night.
--- NOTE | 2025-03-03 08:39 | ECG_ITS ---
Test Reason : check prolonged qt Blood Pressure : */* mmHG Vent. Rate : 68 BPM Atrial Rate : 68 BPM P-R Int : 130 ms QRS Dur : 116 ms QT Int : 392 ms P-R-T Axes : 95 69 69 degrees QTcB Int : 416 ms Normal sinus rhythm Normal ECG When compared with ECG of 02-Mar-2025 16:04, Vent. rate has decreased by 41 bpm T wave inversion no longer evident in Inferior leads T wave amplitude has decreased in Lateral leads QT has shortened Referred By: Rahul Luther Electronically Signed By: Edison Green
--- NOTE | 2025-03-03 10:05 | PC.NURSE ---
pt became restless, was pacing and not redirectable, praying and then hitting himself in the head. Multiple attempts to comfort patient and get him back to his bed were uneffective. Pt was IM'd.
--- NOTE | 2025-03-03 11:05 | PC.NURSE ---
pt at this time becoming verbally and physically threatening, attempting to swing at the sitter assigned to the pt, pt also attempted to barricade himself in the bathroom , security at bedside
--- NOTE | 2025-03-03 11:08 | PC.NURSE ---
Pt very agitated, unable to obtain vitals. Pt is swinging at staff and is not redirectable. MD aware.
--- NOTE | 2025-03-03 12:00 | PC.NURSE ---
pt ambulated to the bathroom started to given himself a sponge bath, then started to put the towel in the toilet and started to clean himself with the towel and sucking on the water from the towel, pt refusing to get out of the bathroom not redirectable at this time, security also in the bathroom, took over 20min to get the pt back to his room
--- NOTE | 2025-03-03 12:52 | PC.NURSE ---
Reported Called to M3 RN. RN sts he will be down shortly for the patient.
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
--- NOTE | 2025-03-03 14:42 | PC.NURSE ---
Verbal permission given to speak with Sarah mother: Tory Yap [phone]
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
--- NOTE | 2025-03-03 21:28 | PC.NURSE ---
Patient is too sedated at this time to take oral medication. Provider Poli Chavarria made aware. Provider states the patient may have the medications if he wakes later this evening; if the patient does not rouse this evening, the patient can have these medications tomorrow.
--- NOTE | 2025-03-03 22:48 | PM.EVENT ---
Event Note Date of Service: 03/03/25 Event Note: Attempted to see patient regarding consultation for rash in the groin area, new antihypertensive medication and leukocytosis but patient currently heavily sedated dealing with psychosis since being in the emergency department yesterday. Nursing staff did confirm that patient has a red rash in the groin area. Unable to examine patient at this time. Did order nystatin powder 3 times daily. This consultation will need to be done during the day on 03/04/2025 if patient is awake and able to participate. Time Spent With Patient Time: Total time managing care of this patient today ____ minutes.
--- NOTE | 2025-03-04 08:14 | PC.NURSE ---
on 03/04/25 Pt gave verbal permission to speak with mom about his care.
--- NOTE | 2025-03-04 09:56 | PC.NURSE ---
Patient gave verbal consent to speak with his mother TJ RN witness to interaction.
--- NOTE | 2025-03-04 11:15 | P.CONHOSP_ITS ---
History of Present Illness Data of Consult Service Date: 03/04/25 Requesting physician: Edu Chavarria Primary Care Provider: Unknown Physician HPI Reason for consult: Groin rash,new anti-HTN, elevated WBC; lisinopril dced restarting lithiuim Washington Yap is a 34 years old man with past medical history significant for essential hypertension on lisinopril, obesity and bipolar disorder has been admitted to the psychiatric unit due to bipolar disorder with acute raoul. Our service was consulted as he was found to have a pruritic groin rash. Also, his lisinopril was discontinued as therapy with lithium was restarted. Also his WBC count was found to be elevated, 12.7. Dhiraj, the patient seems to be sedated but able to answer some of the questions. He said the groin rash has been there forever . He reported chest pain and shortness on breath. Denied nausea or feeling sick to his stomach. Interview was very challenging due to his current psychological status. Per chart review he has no history of alcohol abuse or illicit drug use. 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 Blood workup was remarkable for leukocytosis of 12.7 and neutrophilia. Hemoglobin and platelets are normal. Electrolytes are essentially normal except for minimal hyperchloremia 109. His renal function is normal. Glucose is 136, bilirubin 1.8. Other LFTs are normal. Urine toxicology is positive for benzodiazepines. ECG March 02 shows sinus tachycardia, heart rate 109 bpm. ECG 03/03/2025 showed normal sinus rhythm, heart rate 68 beats per minute. There are no obvious ischemic changes. Urinalysis showed elevated specific gravity and protein of 1+ without evidence of UTI. Review of Systems 2 Review of Systems: limited due to mental status [facility] Medical History (Updated 03/04/25 @ 11:50 by Adriane De La Fuente MD) Morbid obesity Essential hypertension Family History Sister Bipolar 1 disorder Diabetes Substance abuse Mother Bipolar 1 disorder Substance abuse Brain tumor Father Bipolar 1 disorder Suicide Surgical History (Updated 08/10/22 @ 15:40 by APRIL Welsh) Previous back surgery Social History Household Members: Family Household Members Other:: mom, sister, and sister's boyfriend Housing: Unknown / Unable to assess Do you presently have visiting nurse or other home services: No Unable to assess alcohol history related to: Unable to respond Alcohol intake: never Patient Tobacco Use Status: Never used Tobacco e-Cigarette/Vaping Use: Never Used Use of substances other than those prescribed or required for medical reasons: Unable to respond Currently Displaying Signs/Symptoms of Drug Intoxication Withdrawal: No Advance Directives: No Advance Directives Information Provided: No Do you have thoughts of harming others: None Do you have a plan to hurt others: No Plan Recently lost weight without trying: Unsure Nutrition Risks: No Nutritional Risk Poor oral hygiene: Yes service: No Sexual orientation: Straight/Heterosexual Meds Allergies Allergy/AdvReac Type Severity Reaction Status Date / Time naloxone Allergy Unknown Verified 03/01/25 12:51 Active Medications: Current Medications Acetaminophen (Acetaminophen 325 Mg Tablet) 650 mg PO Q6H PRN PRN Reason: Headache/Pain, Scale 1-10 Acetaminophen (Acetaminophen 325 Mg Tablet) 650 mg PO Q6H PRN PRN Reason: Headache/Pain, Scale 1-10 Al Hydroxide/Mg Hydroxide (Magnesium Hydrox/Alum Hydrox 30 Ml Oral.Susp) 30 ml PO Q6H PRN PRN Reason: Heartburn/Nausea Chlorpromazine HCl (Chlorpromazine Hcl 100 Mg Tablet) 200 mg PO Q6H PRN PRN Reason: agitation Last Admin: 03/04/25 09:11 Dose: 200 mg Diazepam (Diazepam 5 Mg Tablet) 10 mg PO Q6H PRN PRN Reason: agitation Last Admin: 03/04/25 09:10 Dose: 10 mg [place] Carbonate ([place] Carbonate Er 300 Mg Tablet.Er) 600 mg PO BID DIXIE Last Admin: 03/04/25 09:10 Dose: 600 mg Magnesium Hydroxide (Milk Of Magnesia 30 Ml Oral.Susp) 30 ml PO DAILY PRN PRN Reason: Constipation Nicotine (Nicotine 21 Mg Patch.Td24) 21 mg TRANSDERMA DAILY PRN PRN Reason: nicotine craving Nicotine Polacrilex (Nicotine Polacrilex 2 Mg Gum) 2 mg BUCCAL Q2H PRN PRN Reason: Nicotine Cravings Nystatin (Nystatin Powder 15 Gm Bottle) 1 appl TOPICAL TID DIXIE; Protocol Olanzapine (Olanzapine 5 Mg Tablet) 5 mg PO BID PRN PRN Reason: agitation Last Admin: 03/04/25 01:24 Dose: 5 mg Olanzapine (Olanzapine 10 Mg Tablet) 20 mg PO BEDTIME COUNTS INCLUDE 234 BEDS AT THE [facility] Last Admin: 03/04/25 00:20 Dose: Not Given Testosterone Cypionate (Testosterone Cypionate 200 Mg/1 Ml Vial) 100 mg IM Th COUNTS INCLUDE 234 BEDS AT THE [facility] Home Medications ?Medication ?Instructions ?Recorded ?Confirmed ?Last Taken ?Type suvorexant 10 mg tablet (Belsomra) 20 mg PO DAILY 02/0803/02/25 Unknown History syringe with needle, safety 3 mL 03/02/25 03/02/25 Un known History 22 gauge x 1 08/11 (UltiCare Safety Syringe) ibuprofen 800 mg tablet 800 mg PO Q8H PRN pain 03/0303/03/25 Unknown History lisinopril 20 mg tablet 20 mg PO DAILY 03/03/2502/08 Unknown History Physical Exam 2 Vital Signs and Narrative: Vital Signs: Last Vital Signs Temp 98.4 F 03/03/25 20:00 Pulse 94 03/03/25 20:00 Resp 20 03/03/25 20:00 BP 143/99 H 03/03/25 20:00 Pulse Ox 95 03/03/25 20:00 O2 Del Method Room Air 03/03/25 20:00 BMI result Body Mass Index 45.9 Constitutional - Sedated. Cooperative. Obese. HEENT - PER. Heart - RRR, No murmurs Lungs - Normal lung expansion, Normal respiratory effort, No respiratory distress, CTA bilaterally Abdomen - NT / ND; +BS; No rebound or guarding Extremities - no calf tenderness bilaterally, no swelling - bilateral erythematous rash involving the inguinal folds extending to upper inner thighs, peritoneum and scrotum, areas are well demarcated, shiny and moist surface Musculoskeletal - Normal inspection, normal ROM Skin - Warm/Dry Neurological - Alert & oriented x3. No focal weakness grossly noted. Sedated. Normal speech. Psychological - Sedated Results Labs 03/02/25 02:38 03/02/25 02:38 Assessment and Plan (1) Candidal intertrigo: Status: Acute (2) Leukocytosis: Qualifiers: Leukocytosis type: unspecified Qualified Code(s): D72.829 - Elevated white blood cell count, unspecified Status: Acute Plan [place] Yap is a 34 y/o man presents with: Rose Marie intertrigo. Continue nystatin powder t.i.d.. Keep area dry. Hygiene is essential. Leukocytosis, Likely reactive + multifactorial: Poor p.o. intake, psychosis. Doubt sepsis. Blood cultures were obtained. Encourage oral hydration. Recheck CBC. Essential hypertension. Lisinopril was discontinued as therapy with lithium was restarted. Start normal for BP control. Bipolar disorder, acute raoul. Treatment per Psychiatry. Morbid obesity. BMI 45.9 kg/m2. Lifestyle modifications, increased physical activity.
[2025-03-04 12:17] VITALS: BP 165/84
--- NOTE | 2025-03-04 17:43 | HO.PSYCHPN ---
Subjective Subjective Date of Service: 03/04/25 Reason For Visit: raoul Subjective Notes: Section 12B Interim History: disorganized. oriented to self. labile. presents with flight of ideas.walking around at times with eyes closed. incontinent of urine x2 this morning. medication compliant. continues on 1:1 safety checks. continue current tx plan. Medication Compliance: Yes Side effects from medications: No Attending Groups: No Mental Status Exam Mental Status Exam Patient Appearance: Unkempt and Malodorous Patient Orientation: Person Level of Consciousness: Awake Patient Behavior: Restless and Wandering Mood Description: Labile Affect Description: Blunted Ability to Follow Directions: Fair Speech Pattern: Clear Thought Process: Disoriented and Confusion Thought Content: positive for Flight of Ideas and positive for Disoriented Judgement: Poor Diagnostics Vital Signs (24Hr): Vital Signs - 24 hr 03/03/25 20:00 03/04/25 12:17 Temperature 98.4 F Pulse Rate 94 Respiratory Rate 20 Blood Pressure 143/99 H 165/84 H Pulse Oximetry 95 Oxygen Delivery Method Room Air BMI result Body Mass Index 45.9 Labs 03/02/25 02:38 03/02/25 02:38 Medications Medications Current Medications Acetaminophen (Acetaminophen 325 Mg Tablet) 650 mg PO Q6H PRN PRN Reason: Headache/Pain, Scale 1-10 Last Admin: 03/04/25 12:30 Dose: 650 mg Acetaminophen (Acetaminophen 325 Mg Tablet) 650 mg PO Q6H PRN PRN Reason: Headache/Pain, Scale 1-10 Al Hydroxide/Mg Hydroxide (Magnesium Hydrox/Alum Hydrox 30 Ml Oral.Susp) 30 ml PO Q6H PRN PRN Reason: Heartburn/Nausea Amlodipine Besylate (Amlodipine Besylate 5 Mg Tablet) 5 mg PO DAILY [facility]; Protocol Last Admin: 03/04/25 12:17 Dose: 5 mg Chlorpromazine HCl (Chlorpromazine Hcl 100 Mg Tablet) 200 mg PO Q6H PRN PRN Reason: agitation Last Admin: 03/04/25 15:31 Dose: 200 mg Diazepam (Diazepam 5 Mg Tablet) 10 mg PO Q6H PRN PRN Reason: agitation Last Admin: 03/04/25 15:31 Dose: 10 mg [place] Carbonate ([place] Carbonate Er 300 Mg Tablet.Er) 600 mg PO BID [facility] Last Admin: 03/04/25 09:10 Dose: 600 mg Magnesium Hydroxide (Milk Of Magnesia 30 Ml Oral.Susp) 30 ml PO DAILY PRN PRN Reason: Constipation Nicotine (Nicotine 21 Mg Patch.Td24) 21 mg TRANSDERMA DAILY PRN PRN Reason: nicotine craving Nicotine Polacrilex (Nicotine Polacrilex 2 Mg Gum) 2 mg BUCCAL Q2H PRN PRN Reason: Nicotine Cravings Nystatin (Nystatin Powder 15 Gm Bottle) 1 appl TOPICAL TID DIXIE; Protocol Last Admin: 03/04/25 15:46 Dose: 1 appl Olanzapine (Olanzapine 5 Mg Tablet) 5 mg PO BID PRN PRN Reason: agitation Last Admin: 03/04/25 01:24 Dose: 5 mg Olanzapine (Olanzapine 10 Mg Tablet) 20 mg PO BEDTIME DIXIE Last Admin: 03/04/25 00:20 Dose: Not Given Testosterone Cypionate (Testosterone Cypionate 200 Mg/1 Ml Vial) 100 mg IM Th [facility] Last Admin: 03/04/25 12:04 Dose: 100 mg Allergies Allergies Allergy/AdvReac Type Severity Reaction Status Date / Time naloxone Allergy Unknown Verified 03/01/25 12:51 Assessment & Plan Assessment & Plan (1) Bipolar disorder, current episode manic severe with psychotic features: Status: Acute Code(s): F31.2 - Bipolar disorder, current episode manic severe with psychotic features Plan per CARE team leda pt with h/o bipolar disorder Dx was BIBA from [facility], where he had stripped naked, urinated on the floor, and was kneeling and praying. once in [facility] ED he was behaving in an erratic manner, sometimes aggressive or unsafe (attempting elopement). he required IM medications on numerous occasions over several days while there. he was described by CARE team clinician as not oriented to person, place, or circumstance while in the ED. he believed he was in heaven. fecal smears were noted on his sheets. he was RIS and of labile affect. per collateral from pt's mother, pt had been adherent to medications until about 5 months ago. she reports that she noticed a change in him a couple of weeks ago. 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 she stated he was arrested for unknown reasons after leaving for the gym last . utox NEG (aside from benzos, which he was given in the ED). on interview with MD, pt is apparently quite sedated from thorazine given in the ED shortly prior to transfer. he indicates euthymic mood and denies SI/HI/AVH. groin rash noted. pt was started on lithium and zyprexa, which he has taken in the past successfully. offer lithium and zyprexa. thorazine and valium PRN agitation. DC ibuprofen and lisinopril due to restarting lithium. medical consult for HTN, groin rash. also elevated WBC, PMN predominant, unclear etiology. 03/04: disorganized. oriented to self. labile. presents with flight of ideas.walking around at times with eyes closed. incontinent of urine x2 this morning. medication compliant. continues on 1:1 safety checks. continue current tx plan. Reason for continued inpatient stay Substantial Risk for: med/psych decompensation Time Spent With Patient Time: Total time managing care of this patient today _20___ minutes.
[2025-03-04 20:00] VITALS: RESP 16
[2025-03-04] MEDS: Clotrimazole 1 % Cream 15 GM TUBE 1 APPL TOPICAL (21:35)
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
[2025-03-05 09:08] VITALS: BP 152/98
[2025-03-05] MEDS: Clotrimazole 1 % Cream 15 GM TUBE 1 APPL TOPICAL ×2 (09:10→21:44)
--- NOTE | 2025-03-05 16:52 | P.PNPSI_ITS ---
Subjective Subjective Date of Service: 03/05/25 Reason For Visit: raoul Subjective Notes: Conditional Voluntary Interim History: In and out of room. disrobed x1. incontinent of urine x1. Showered. Moments of lucidity; pt was able to state name of hospital and date. He reports he wants to stay in the hospital for mental health treatment; pt signed CV; arriola warning given. pt stated, I want to stay here and get help. I don't remember my medications but my mother does . Continue current tx plan. Medication Compliance: Yes Side effects from medications: No Attending Groups: No Mental Status Exam Mental Status Exam Patient Appearance: Appropriate Patient Orientation: Person, Place, Time and Situation Level of Consciousness: Awake Patient Behavior: Cooperative, Wandering and Good Eye Contact Mood Description: Sad Affect Description: Blunted Ability to Follow Directions: Good Speech Pattern: Clear Hallucinations: None Delusions: Not Present Thought Process: Slowed Thinking Thought Content: positive for Disoriented Diagnostics Vital Signs (24Hr): Vital Signs - 24 hr 03/04/25 20:00 03/05/25 09:08 Respiratory Rate 16 Blood Pressure 152/98 H BMI result Body Mass Index 45.9 Labs 03/02/25 02:38 03/02/25 02:38 Medications Medications Current Medications Acetaminophen (Acetaminophen 325 Mg Tablet) 650 mg PO Q6H PRN PRN Reason: Headache/Pain, Scale 1-10 Last Admin: 03/05/25 00:00 Dose: 650 mg Acetaminophen (Acetaminophen 325 Mg Tablet) 650 mg PO Q6H PRN PRN Reason: Headache/Pain, Scale 1-10 Al Hydroxide/Mg Hydroxide (Magnesium Hydrox/Alum Hydrox 30 Ml Oral.Susp) 30 ml PO Q6H PRN PRN Reason: Heartburn/Nausea Amlodipine Besylate (Amlodipine Besylate 5 Mg Tablet) 5 mg PO DAILY [facility]; Protocol Last Admin: 03/05/25 09:08 Dose: 5 mg Chlorpromazine HCl (Chlorpromazine Hcl 100 Mg Tablet) 200 mg PO Q6H PRN PRN Reason: agitation Last Admin: 03/05/25 14:00 Dose: 200 mg Clotrimazole (Clotrimazole 1 % Cream 15 Gm Tube) 1 appl TOPICAL BID [facility]; Protocol Last Admin: 03/05/25 09:10 Dose: 1 appl Diazepam (Diazepam 5 Mg Tablet) 10 mg PO Q6H PRN PRN Reason: agitation Last Admin: 03/05/25 14:00 Dose: 10 mg [place] Carbonate ([place] Carbonate Er 300 Mg Tablet.Er) 600 mg PO BID [facility] Last Admin: 03/05/25 09:04 Dose: 600 mg Magnesium Hydroxide (Milk Of Magnesia 30 Ml Oral.Susp) 30 ml PO DAILY PRN PRN Reason: Constipation Nicotine (Nicotine 21 Mg Patch.Td24) 21 mg TRANSDERMA DAILY PRN PRN Reason: nicotine craving Nicotine Polacrilex (Nicotine Polacrilex 2 Mg Gum) 2 mg BUCCAL Q2H PRN PRN Reason: Nicotine Cravings Nystatin (Nystatin Powder 15 Gm Bottle) 1 appl TOPICAL TID [facility]; Protocol Last Admin: 03/05/25 09:10 Dose: 1 appl Olanzapine (Olanzapine 5 Mg Tablet) 5 mg PO BID PRN PRN Reason: agitation Last Admin: 03/05/25 00:00 Dose: 5 mg Olanzapine (Olanzapine 10 Mg Tablet) 20 mg PO BEDTIME [facility] Last Admin: 03/04/25 21:31 Dose: 20 mg Testosterone Cypionate (Testosterone Cypionate 200 Mg/1 Ml Vial) 100 mg IM Th [facility] Last Admin: 03/04/25 12:04 Dose: 100 mg Allergies Allergies Allergy/AdvReac Type Severity Reaction Status Date / Time naloxone Allergy Unknown Verified 03/01/25 12:51 Assessment & Plan Assessment & Plan (1) Bipolar disorder, current episode manic severe with psychotic features: Status: Acute Code(s): F31.2 - Bipolar disorder, current episode manic severe with psychotic features Plan per CARE team leda pt with h/o bipolar disorder Dx was BIBA from [facility], where he had stripped naked, urinated on the floor, and was kneeling and praying. once in [facility] ED he was behaving in an erratic manner, sometimes aggressive or unsafe (attempting elopement). he required IM medications on numerous occasions over several days while there. he was described by CARE team clinician as not oriented to person, place, or circumstance while in the ED. he believed he was in heaven. fecal smears were noted on his sheets. he was RIS and of labile affect. per collateral from pt's mother, pt had been adherent to medications until about 5 months ago. she reports that she noticed a change in him a couple of weeks ago. 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 she stated he was arrested for unknown reasons after leaving for the gym last . utox NEG (aside from benzos, which he was given in the ED). on interview with MD, pt is apparently quite sedated from thorazine given in the ED shortly prior to transfer. he indicates euthymic mood and denies SI/HI/AVH. groin rash noted. pt was started on lithium and zyprexa, which he has taken in the past successfully. offer lithium and zyprexa. thorazine and valium PRN agitation. DC ibuprofen and lisinopril due to restarting lithium. medical consult for HTN, groin rash. also elevated WBC, PMN predominant, unclear etiology. 03/04: disorganized. oriented to self. labile. presents with flight of ideas.walking around at times with eyes closed. incontinent of urine x2 this morning. medication compliant. continues on 1:1 safety checks. continue current tx plan. 03/05: In and out of room. disrobed x1. incontinent of urine x1. Showered. Moments of lucidity; pt was able to state name of hospital and date. He reports he wants to stay in the hospital for mental health treatment; pt signed CV; arriola warning given. pt stated, I want to stay here and get help. I don't remember my medications but my mother does . Continue current tx plan. Patient educated on: diagnosis and medication risk/benefits Reason for continued inpatient stay Substantial Risk for: med/psych decompensation Time Spent With Patient Time: Total time managing care of this patient today _20___ minutes.
[2025-03-05 20:00] VITALS: BP 132/93; PULSE 105; RESP 20; O2SAT 95
[2025-03-06 08:50] VITALS: BP 146/99; PULSE 106; RESP 20; TEMP 37.1; O2SAT 98
[2025-03-06 08:59] VITALS: BP 146/99
--- NOTE | 2025-03-06 09:39 | P.PNPSI_ITS ---
Subjective Subjective Date of Service: 03/06/25 Reason For Visit: raoul Subjective Notes: Conditional Voluntary Interim History: Active on unit. disrobed x1. has not been incontinent of urine so far today. More organized, however continues disorganized. Placed his hospital rocky under running water and wore it but changed with staff assistance. He reports feeling happy today but is unable to state reason. States he is disrobing to shower; educated he can't disrobe in front of others. denies any side effects from medications. T/W spoke to patients mother, Tory, with pt's consent. Pt's mother states she does not know his medication hx or his outpatient prescriber's name. Continue current tx plan. Medication Compliance: Yes Side effects from medications: No Attending Groups: No Mental Status Exam Mental Status Exam Narrative: Pt is alert and oriented; behavior is cooperative, calm, disrobing at times; dressed in hospital attire; mood is described as happy ; eye contact appropriate; Speech is normal rate, volume and not pressured; thought process is more organized today however still disorganized. continues with flight of ideas at times; denies SI/HI/VH/AH. Diagnostics Vital Signs (24Hr): Vital Signs - 24 hr 03/05/25 20:00 03/06/25 08:50 03/06/25 08:59 Temperature 98.7 F Pulse Rate 105 H 106 H Respiratory Rate 20 20 Blood Pressure 132/93 H 146/99 H 146/99 H Pulse Oximetry 95 98 Oxygen Delivery Method Room Air Room Air BMI result Body Mass Index 45.9 Labs 03/02/25 02:38 03/02/25 02:38 Medications Medications Current Medications Acetaminophen (Acetaminophen 325 Mg Tablet) 650 mg PO Q6H PRN PRN Reason: Headache/Pain, Scale 1-10 Last Admin: 03/05/25 00:00 Dose: 650 mg Acetaminophen (Acetaminophen 325 Mg Tablet) 650 mg PO Q6H PRN PRN Reason: Headache/Pain, Scale 1-10 Al Hydroxide/Mg Hydroxide (Magnesium Hydrox/Alum Hydrox 30 Ml Oral.Susp) 30 ml PO Q6H PRN PRN Reason: Heartburn/Nausea Amlodipine Besylate (Amlodipine Besylate 5 Mg Tablet) 5 mg PO DAILY [facility]; Protocol Last Admin: 03/06/25 08:59 Dose: 5 mg Chlorpromazine HCl (Chlorpromazine Hcl 100 Mg Tablet) 200 mg PO Q6H PRN PRN Reason: agitation Last Admin: 03/06/25 03:41 Dose: 200 mg Clotrimazole (Clotrimazole 1 % Cream 15 Gm Tube) 1 appl TOPICAL BID [facility]; Protocol Last Admin: 03/05/25 21:44 Dose: 1 appl Diazepam (Diazepam 5 Mg Tablet) 10 mg PO Q6H PRN PRN Reason: agitation Last Admin: 03/06/25 03:40 Dose: 10 mg [place] Carbonate ([place] Carbonate Er 300 Mg Tablet.Er) 600 mg PO BID [facility] Last Admin: 03/06/25 08:59 Dose: 600 mg Magnesium Hydroxide (Milk Of Magnesia 30 Ml Oral.Susp) 30 ml PO DAILY PRN PRN Reason: Constipation Nicotine (Nicotine 21 Mg Patch.Td24) 21 mg TRANSDERMA DAILY PRN PRN Reason: nicotine craving Nicotine Polacrilex (Nicotine Polacrilex 2 Mg Gum) 2 mg BUCCAL Q2H PRN PRN Reason: Nicotine Cravings Nystatin (Nystatin Powder 15 Gm Bottle) 1 appl TOPICAL TID [facility]; Protocol Last Admin: 03/05/25 21:44 Dose: 1 appl Olanzapine (Olanzapine 5 Mg Tablet) 5 mg PO BID PRN PRN Reason: agitation Last Admin: 03/05/25 00:00 Dose: 5 mg Olanzapine (Olanzapine 10 Mg Tablet) 20 mg PO BEDTIME [facility] Last Admin: 03/05/25 20:20 Dose: 20 mg Testosterone Cypionate (Testosterone Cypionate 200 Mg/1 Ml Vial) 100 mg IM Th [facility] Last Admin: 03/04/25 12:04 Dose: 100 mg Allergies Allergies Allergy/AdvReac Type Severity Reaction Status Date / Time naloxone Allergy Unknown Verified 03/01/25 12:51 Assessment & Plan Assessment & Plan (1) Bipolar disorder, current episode manic severe with psychotic features: Status: Acute Code(s): F31.2 - Bipolar disorder, current episode manic severe with psychotic features Plan per CARE team bruna otmpkins with h/o bipolar disorder Dx was BIBA from [facility], where he had stripped naked, urinated on the floor, and was kneeling and praying. once in [facility] ED he was behaving in an erratic manner, sometimes aggressive or unsafe (attempting elopement). he required IM medications on numerous occasions over several days while there. he was described by CARE team clinician as not oriented to person, place, or circumstance while in the ED. he believed he was in heaven. fecal smears were noted on his sheets. he was RIS and of labile affect. per collateral from pt's mother, pt had been adherent to medications until about 5 months ago. she reports that she noticed a change in him a couple of weeks ago. 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 she stated he was arrested for unknown reasons after leaving for the gym last . utox NEG (aside from benzos, which he was given in the ED). on interview with MD, pt is apparently quite sedated from thorazine given in the ED shortly prior to transfer. he indicates euthymic mood and denies SI/HI/AVH. groin rash noted. pt was started on lithium and zyprexa, which he has taken in the past successfully. offer lithium and zyprexa. thorazine and valium PRN agitation. DC ibuprofen and lisinopril due to restarting lithium. medical consult for HTN, groin rash. also elevated WBC, PMN predominant, unclear etiology. 03/04: disorganized. oriented to self. labile. presents with flight of ideas.walking around at times with eyes closed. incontinent of urine x2 this morning. medication compliant. continues on 1:1 safety checks. continue current tx plan. 03/05: In and out of room. disrobed x1. incontinent of urine x1. Showered. Moments of lucidity; pt was able to state name of hospital and date. He reports he wants to stay in the hospital for mental health treatment; pt signed CV; arriola warning given. pt stated, I want to stay here and get help. I don't remember my medications but my mother does . Continue current tx plan. 03/06: Active on unit. disrobed x1. has not been incontinent of urine so far today. More organized, however continues disorganized. Placed his hospital rocky under running water and wore it but changed with staff assistance. He reports feeling happy today but is unable to state reason. States he is disrobing to shower; educated he can't disrobe in front of others. denies any side effects from medications. T/W spoke to patients mother, Tory, with pt's consent. Pt's mother states she does not know his medication hx or his outpatient prescriber's name. Continue current tx plan. Patient educated on: diagnosis and medication risk/benefits Reason for continued inpatient stay Substantial Risk for: med/psych decompensation Time Spent With Patient Time: Total time managing care of this patient today _20___ minutes.
[2025-03-06] MEDS: Clotrimazole 1 % Cream 15 GM TUBE 1 APPL TOPICAL ×2 (09:59→20:50)
[2025-03-06 19:37] VITALS: BP 147/93; PULSE 110; RESP 16; TEMP 36.4; O2SAT 99
[2025-03-07 07:58] LABS: MANUAL DIFF FLAG NO
[2025-03-07 08:03] LABS: Hematocrit 46.1 % (42.0-52.0); Hemoglobin 16.0 g/dl (14.0-18.0); Imm Gran Abs Auto 0.08 X10*3/uL (0.00-0.03); Imm Gran Pct Auto 0.7 % (0.0-0.4); Lymphocytes Absolute Auto 1.4 X10*3/uL (1.2-4.9); Mean Corpuscular HGB Conc 34.7 g/dl (31.0-36.0); Mean Corpuscular Hemoglobin 29.1 pg (27.0-33.0); Mean Corpuscular Volume 83.8 fL (80.0-98.0); NRBC Abs Auto 0.000 X10*3/uL (0.0-0.012); NRBC Pct Auto 0.0 /100WBC (0.0-0.2); Platelet Count 248 X10*3/uL (160-400); Red Blood Count 5.50 X10*6/uL (4.60-5.80); White Blood Count 10.9 X10*3/uL (4.8-10.8)
[2025-03-07 08:15] LABS: Hemoglobin A1C 126.5510 umol/L; Total Hemoglobin (HGBA1C) 4174.6477 umol/L
--- NOTE | 2025-03-07 08:50 | HO.PSYCHPN ---
Subjective Subjective Date of Service: 03/07/25 Reason For Visit: raoul Subjective Notes: Conditional Voluntary Interim History: Active on unit. did not disrobed or have incontinence today. disorganized. Patient thanked T/W for putting his dogs in the kennel and giving him a picture of an elephant; T/W informed pt neither of those were done by them; pt stated, well I remember that you did that . Continues to report feeling happy today because he's in the hospital. He feels the medications are great ; lithium level to be drawn on 03/09/25; pt aware. Continue current tx plan. Medication Compliance: Yes Side effects from medications: No Attending Groups: No Mental Status Exam Mental Status Exam Narrative: Pt is alert and oriented; behavior is cooperative, calm; dressed in hospital attire; mood is described as happy ; eye contact appropriate; Speech is normal rate, volume and not pressured; disorganized. continues with flight of ideas at times; denies SI/HI/VH/AH. Diagnostics Vital Signs (24Hr): Vital Signs - 24 hr 03/06/25 08:59 03/06/25 19:37 Temperature 97.5 F Pulse Rate 110 H Respiratory Rate 16 Blood Pressure 146/99 H 147/93 H Pulse Oximetry 99 Oxygen Delivery Method Room Air BMI result Body Mass Index 45.9 Labs 03/07/25 07:34 03/02/25 02:38 Labs: Laboratory Results - last 48 hr 03/07/25 07:34 WBC 10.9 H RBC 5.50 Hgb 16.0 Hct 46.1 MCV 83.8 MCH 29.1 MCHC 34.7 RDW 12.9 Plt Count 248 MPV 10.9 Immature Gran % (Auto) 0.7 H Neut % (Auto) 73.7 H Lymph % (Auto) 12.8 L [place] % (Auto) 10.6 Eos % (Auto) 1.7 Baso % (Auto) 0.5 Lymph # (Auto) 1.4 [place] # (Auto) 1.2 Eos # (Auto) 0.2 Baso # (Auto) 0.1 Abs Immat Gran (auto) 0.08 H Absolute Neuts (auto) 8.0 Absolute Nucleated RBC 0.000 Nucleated RBC % (auto) 0.0 Estimat Average Glucose 94 Hemoglobin A1c % 4.9 Medications Medications Current Medications Acetaminophen (Acetaminophen 325 Mg Tablet) 650 mg PO Q6H PRN PRN Reason: Headache/Pain, Scale 1-10 Last Admin: 03/05/25 00:00 Dose: 650 mg Acetaminophen (Acetaminophen 325 Mg Tablet) 650 mg PO Q6H PRN PRN Reason: Headache/Pain, Scale 1-10 Al Hydroxide/Mg Hydroxide (Magnesium Hydrox/Alum Hydrox 30 Ml Oral.Susp) 30 ml PO Q6H PRN PRN Reason: Heartburn/Nausea Amlodipine Besylate (Amlodipine Besylate 5 Mg Tablet) 5 mg PO DAILY [facility]; Protocol Last Admin: 03/06/25 08:59 Dose: 5 mg Chlorpromazine HCl (Chlorpromazine Hcl 100 Mg Tablet) 200 mg PO Q6H PRN PRN Reason: agitation Last Admin: 03/06/25 23:05 Dose: 200 mg Clotrimazole (Clotrimazole 1 % Cream 15 Gm Tube) 1 appl TOPICAL BID [facility]; Protocol Last Admin: 03/06/25 20:50 Dose: 1 appl Diazepam (Diazepam 5 Mg Tablet) 10 mg PO Q6H PRN PRN Reason: agitation Last Admin: 03/06/25 23:06 Dose: 10 mg [place] Carbonate ([place] Carbonate Er 300 Mg Tablet.Er) 600 mg PO BID [facility] Last Admin: 03/06/25 20:47 Dose: 600 mg Magnesium Hydroxide (Milk Of Magnesia 30 Ml Oral.Susp) 30 ml PO DAILY PRN PRN Reason: Constipation Nicotine (Nicotine 21 Mg Patch.Td24) 21 mg TRANSDERMA DAILY PRN PRN Reason: nicotine craving Nicotine Polacrilex (Nicotine Polacrilex 2 Mg Gum) 2 mg BUCCAL Q2H PRN PRN Reason: Nicotine Cravings Nystatin (Nystatin Powder 15 Gm Bottle) 1 appl TOPICAL TID [facility]; Protocol Last Admin: 03/06/25 23:18 Dose: 1 appl Olanzapine (Olanzapine 5 Mg Tablet) 5 mg PO BID PRN PRN Reason: agitation Last Admin: 03/07/25 02:54 Dose: 5 mg Olanzapine (Olanzapine 10 Mg Tablet) 20 mg PO BEDTIME [facility] Last Admin: 03/06/25 20:47 Dose: 20 mg Testosterone Cypionate (Testosterone Cypionate 200 Mg/1 Ml Vial) 100 mg IM Th [facility] Last Admin: 03/04/25 12:04 Dose: 100 mg Allergies Allergies Allergy/AdvReac Type Severity Reaction Status Date / Time naloxone Allergy Unknown Verified 03/01/25 12:51 Assessment & Plan Assessment & Plan (1) Bipolar disorder, current episode manic severe with psychotic features: Status: Acute Code(s): F31.2 - Bipolar disorder, current episode manic severe with psychotic features Plan per CARE team ledabruan with h/o bipolar disorder Dx was BIBA from [facility], where he had stripped naked, urinated on the floor, and was kneeling and praying. once in [facility] ED he was behaving in an erratic manner, sometimes aggressive or unsafe (attempting elopement). he required IM medications on numerous occasions over several days while there. he was described by CARE team clinician as not oriented to person, place, or circumstance while in the ED. he believed he was in heaven. fecal smears were noted on his sheets. he was RIS and of labile affect. per collateral from pt's mother, pt had been adherent to medications until about 5 months ago. she reports that she noticed a change in him a couple of weeks ago. 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 she stated he was arrested for unknown reasons after leaving for the gym last . utox NEG (aside from benzos, which he was given in the ED). on interview with MD, pt is apparently quite sedated from thorazine given in the ED shortly prior to transfer. he indicates euthymic mood and denies SI/HI/AVH. groin rash noted. pt was started on lithium and zyprexa, which he has taken in the past successfully. offer lithium and zyprexa. thorazine and valium PRN agitation. DC ibuprofen and lisinopril due to restarting lithium. medical consult for HTN, groin rash. also elevated WBC, PMN predominant, unclear etiology. 03/04: disorganized. oriented to self. labile. presents with flight of ideas.walking around at times with eyes closed. incontinent of urine x2 this morning. medication compliant. continues on 1:1 safety checks. continue current tx plan. 03/05: In and out of room. disrobed x1. incontinent of urine x1. Showered. Moments of lucidity; pt was able to state name of hospital and date. He reports he wants to stay in the hospital for mental health treatment; pt signed CV; arriola warning given. pt stated, I want to stay here and get help. I don't remember my medications but my mother does . Continue current tx plan. 03/06: Active on unit. disrobed x1. has not been incontinent of urine so far today. More organized, however continues disorganized. Placed his hospital rocky under running water and wore it but changed with staff assistance. He reports feeling happy today but is unable to state reason. States he is disrobing to shower; educated he can't disrobe in front of others. denies any side effects from medications. T/W spoke to patients mother, Tory, with pt's consent. Pt's mother states she does not know his medication hx or his outpatient prescriber's name. Continue current tx plan. 03/07: Active on unit. did not disrobed or have incontinence today. disorganized. Patient thanked T/W for putting his dogs in the kennel and giving him a picture of an elephant; T/W informed pt neither of those were done by them; pt stated, well I remember that you did that . Continues to report feeling happy today because he's in the hospital. He feels the medications are great ; lithium level to be drawn on 03/09/25; pt aware. Continue current tx plan. Patient educated on: diagnosis and medication risk/benefits Reason for continued inpatient stay Substantial Risk for: med/psych decompensation Time Spent With Patient Time: Total time managing care of this patient today _20___ minutes.
[2025-03-07 09:20] VITALS: BP 163/93; PULSE 127; TEMP 36.9; O2SAT 95
[2025-03-07 09:25] VITALS: BP 163/93
--- NOTE | 2025-03-07 20:58 | PC.NURSE ---
medication Belsomra brought in from home.
[2025-03-07 22:03] VITALS: BP 141/93; PULSE 124; RESP 16; TEMP 36.5; O2SAT 95
[2025-03-07] MEDS: Clotrimazole 1 % Cream 15 GM TUBE 1 APPL TOPICAL (22:05)
--- NOTE | 2025-03-08 02:50 | PC.NURSE ---
patients home medications stored in pharmacy
[2025-03-08 08:00] VITALS: BP 173/95; PULSE 110; RESP 16; TEMP 36.3; O2SAT 95
[2025-03-08 09:19] LABS: Anion Gap 11 (12-20); Blood Urea Nitrogen 9 mg/dL (9-16); Calcium 9.1 mg/dL (8.4-10.2); Carbon Dioxide 27 mmol/L (22-29); Chloride 105 mmol/L (96-108); Creatinine Clr Calc Pharmacy 201.9; Estimated Glomerular Filt Rate > 60; Potassium 3.8 mmol/L (3.3-5.1); Sodium 139 mmol/L (135-145)
--- NOTE | 2025-03-08 09:32 | P.PNPSI_ITS ---
Subjective Subjective Date of Service: 03/08/25 Reason For Visit: raoul Subjective Notes: Conditional Voluntary Interim History: Patient notes that he feels great. He denies anxiety or depression. He denies SI/HI/AH/VH. He is religiously preoccupied he notes that he prays to Allah/God and sees Him in different forms. Medication Compliance: Yes Side effects from medications: No Attending Groups: No Review of Systems Acute medical concerns: No Mental Status Exam Mental Status Exam Narrative: Appearance: Casually dressed, adequate hygiene Behavior: Calm and cooperative throughout the interview. Eye contact is appropriate, and there are no signs of psychomotor agitation or retardation Speech: Normal volume and prosody Thought process: Logical and goal-directed Thought content: Religiously preoccupied, future oriented, no self-harming thoughts Mood: Calm Affect: Full, mood-congruent SI:denies HI:denies VH/AH:none Delusions: Seeing God Insight/judgment: Impaired insight and judgment Memory/cog: Alert, oriented x 4. grossly intact to conversational testing Diagnostics Vital Signs (24Hr): Vital Signs - 24 hr 03/07/25 22:03 Temperature 97.7 F Pulse Rate 124 H Respiratory Rate 16 Blood Pressure 141/93 H Pulse Oximetry 95 Oxygen Delivery Method Room Air BMI result Body Mass Index 45.9 Labs 03/07/25 07:34 03/08/25 08:37 Labs: Laboratory Results - last 48 hr 03/07/25 03/08/25 07:34 08:37 WBC 10.9 H RBC 5.50 Hgb 16.0 Hct 46.1 MCV 83.8 MCH 29.1 MCHC 34.7 RDW 12.9 Plt Count 248 MPV 10.9 Immature Gran % (Auto) 0.7 H Neut % (Auto) 73.7 H Lymph % (Auto) 12.8 L [place] % (Auto) 10.6 Eos % (Auto) 1.7 Baso % (Auto) 0.5 Lymph # (Auto) 1.4 [place] # (Auto) 1.2 Eos # (Auto) 0.2 Baso # (Auto) 0.1 Abs Immat Gran (auto) 0.08 H Absolute Neuts (auto) 8.0 Absolute Nucleated RBC 0.000 Nucleated RBC % (auto) 0.0 Sodium 139 Potassium 3.8 Chloride 105 Carbon Dioxide 27 Anion Gap 11 L BUN 9 Creatinine 0.78 Estim Creat Clear Calc 201.9 Estimated GFR > 60 Random Glucose 163 H Estimat Average Glucose 94 Hemoglobin A1c % 4.9 Calcium 9.1 Medications Medications Current Medications Acetaminophen (Acetaminophen 325 Mg Tablet) 650 mg PO Q6H PRN PRN Reason: Headache/Pain, Scale 1-10 Last Admin: 03/07/25 20:11 Dose: 650 mg Al Hydroxide/Mg Hydroxide (Magnesium Hydrox/Alum Hydrox 30 Ml Oral.Susp) 30 ml PO Q6H PRN PRN Reason: Heartburn/Nausea Amlodipine Besylate (Amlodipine Besylate 2.5 Mg Tablet) 7.5 mg PO BEDTIME DIXIE; Protocol Last Admin: 03/07/25 22:05 Dose: 7.5 mg Chlorpromazine HCl (Chlorpromazine Hcl 100 Mg Tablet) 200 mg PO Q6H PRN PRN Reason: agitation Last Admin: 03/06/25 23:05 Dose: 200 mg Clotrimazole (Clotrimazole 1 % Cream 15 Gm Tube) 1 appl TOPICAL BID DIXIE; Protocol Last Admin: 03/08/25 09:28 Dose: Not Given Diazepam (Diazepam 5 Mg Tablet) 10 mg PO Q6H PRN PRN Reason: agitation Last Admin: 03/07/25 22:06 Dose: 10 mg [place] Carbonate ([place] Carbonate Er 300 Mg Tablet.Er) 600 mg PO BID DIXIE Last Admin: 03/08/25 09:27 Dose: 600 mg Magnesium Hydroxide (Milk Of Magnesia 30 Ml Oral.Susp) 30 ml PO DAILY PRN PRN Reason: Constipation Nystatin (Nystatin Powder 15 Gm Bottle) 1 appl TOPICAL TID DIXIE; Protocol Last Admin: 03/08/25 09:29 Dose: Not Given Olanzapine (Olanzapine 10 Mg Tablet) 20 mg PO BEDTIME DIXIE Last Admin: 03/07/25 22:06 Dose: 20 mg Olanzapine (Olanzapine 5 Mg Tablet) 5 mg PO Q4H PRN PRN Reason: agitation Testosterone Cypionate (Testosterone Cypionate 200 Mg/1 Ml Vial) 100 mg IM Th [facility] Last Admin: 03/04/25 12:04 Dose: 100 mg Allergies Allergies Allergy/AdvReac Type Severity Reaction Status Date / Time naloxone Allergy Unknown Verified 03/01/25 12:51 Assessment & Plan Assessment & Plan (1) Bipolar disorder, current episode manic severe with psychotic features: Status: Acute Code(s): F31.2 - Bipolar disorder, current episode manic severe with psychotic features Plan per CARE team leda pt with h/o bipolar disorder Dx was BIBA from [facility], where he had stripped naked, urinated on the floor, and was kneeling and praying. once in [facility] [place] he was behaving in an erratic manner, sometimes aggressive or unsafe (attempting elopement). he required IM medications on numerous occasions over several days while there. he was described by CARE team clinician as not oriented to person, place, or circumstance while in the ED. he believed he was in heaven. fecal smears were noted on his sheets. he was RIS and of labile affect. per collateral from pt's mother, pt had been adherent to medications until about 5 months ago. she reports that she noticed a change in him a couple of weeks ago. 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 she stated he was arrested for unknown reasons after leaving for the gym last . utox NEG (aside from benzos, which he was given in the ED). on interview with MD, pt is apparently quite sedated from thorazine given in the ED shortly prior to transfer. he indicates euthymic mood and denies SI/HI/AVH. groin rash noted. pt was started on lithium and zyprexa, which he has taken in the past successfully. offer lithium and zyprexa. thorazine and valium PRN agitation. DC ibuprofen and lisinopril due to restarting lithium. medical consult for HTN, groin rash. also elevated WBC, PMN predominant, unclear etiology. 03/04: disorganized. oriented to self. labile. presents with flight of ideas.walking around at times with eyes closed. incontinent of urine x2 this morning. medication compliant. continues on 1:1 safety checks. continue current tx plan. 03/05: In and out of room. disrobed x1. incontinent of urine x1. Showered. Moments of lucidity; pt was able to state name of hospital and date. He reports he wants to stay in the hospital for mental health treatment; pt signed CV; arriola warning given. pt stated, I want to stay here and get help. I don't remember my medications but my mother does . Continue current tx plan. 03/06: Active on unit. disrobed x1. has not been incontinent of urine so far today. More organized, however continues disorganized. Placed his hospital rocky under running water and wore it but changed with staff assistance. He reports feeling happy today but is unable to state reason. States he is disrobing to shower; educated he can't disrobe in front of others. denies any side effects from medications. T/W spoke to patients mother, Tory, with pt's consent. Pt's mother states she does not know his medication hx or his outpatient prescriber's name. Continue current tx plan. 03/07: Active on unit. did not disrobed or have incontinence today. disorganized. Patient thanked T/W for putting his dogs in the kennel and giving him a picture of an elephant; T/W informed pt neither of those were done by them; pt stated, well I remember that you did that . Continues to report feeling happy today because he's in the hospital. He feels the medications are great ; lithium level to be drawn on 03/09/25; pt aware. Continue current tx plan. 03/08: Patient notes that he feels great. He denies anxiety or depression. He denies SI/HI/AH/VH. He is religiously preoccupied he notes that he prays to Allah/God and sees Him in different form. Continue current regimen. Patient educated on: therapeutic strategies Reason for continued inpatient stay Substantial Risk for: rapid decompensation Time Spent With Patient Time: Total time managing care of this patient today ____ minutes.
[2025-03-08 11:22] VITALS: BP 145/95; PULSE 127; O2SAT 94
[2025-03-08 15:25] VITALS: BP 141/92; PULSE 120
[2025-03-08 20:00] VITALS: BP 145/89; PULSE 108; RESP 16; TEMP 37.2; O2SAT 95
[2025-03-08 21:24] VITALS: BP 144/90
[2025-03-09 07:00] VITALS: BMI 46.4
[2025-03-09 07:34] VITALS: BP 166/95; PULSE 106; RESP 20; TEMP 36.4; O2SAT 93
[2025-03-09 08:07] LABS: MANUAL DIFF FLAG NO
[2025-03-09 08:10] LABS: Hematocrit 46.8 % (42.0-52.0); Hemoglobin 15.9 g/dl (14.0-18.0); Imm Gran Abs Auto 0.11 X10*3/uL (0.00-0.03); Imm Gran Pct Auto 1.0 % (0.0-0.4); Lymphocytes Absolute Auto 1.3 X10*3/uL (1.2-4.9); Mean Corpuscular HGB Conc 34.0 g/dl (31.0-36.0); Mean Corpuscular Hemoglobin 28.6 pg (27.0-33.0); Mean Corpuscular Volume 84.3 fL (80.0-98.0); NRBC Abs Auto 0.000 X10*3/uL (0.0-0.012); NRBC Pct Auto 0.0 /100WBC (0.0-0.2); Platelet Count 275 X10*3/uL (160-400); Red Blood Count 5.55 X10*6/uL (4.60-5.80); White Blood Count 10.7 X10*3/uL (4.8-10.8)
[2025-03-09 08:17] LABS: Lithium 0.29 mmol/L (0.60-1.20)
[2025-03-09 08:39] LABS: Alanine Aminotransferase 54 U/L (0-40); Albumin Level 3.8 g/dL (3.5-5.0); Alkaline Phosphatase 86 U/L (39-117); Anion Gap 11 (12-20); Aspartate Amino Transferase 37 U/L (5-37); Blood Urea Nitrogen 10 mg/dL (9-16); Carbon Dioxide 28 mmol/L (22-29); Chloride 105 mmol/L (96-108); Creatinine Clr Calc Pharmacy 210.0; Estimated Glomerular Filt Rate > 60; Potassium 4.1 mmol/L (3.3-5.1); Sodium 140 mmol/L (135-145); Total Protein 6.6 g/dL (6.5-8.0)
[2025-03-09 08:48] VITALS: PULSE 111
--- NOTE | 2025-03-09 13:24 | HO.PSYCHPN ---
Subjective Subjective Date of Service: 03/09/25 Reason For Visit: raoul Subjective Notes: Conditional Voluntary Interim History: Active on unit. social with peers. labile. [place] level 0.29 on 03/09/25. medication compliant. Per nursing, slept 7 hours last night. [place] increased to 900mg PO BID. Start: Depakote ER 1500mg PO bedtime. Medication Compliance: Yes Side effects from medications: No Attending Groups: Yes Mental Status Exam Mental Status Exam Narrative: Pt is alert and oriented; behavior is cooperative and calm; dressed in hospital attire; mood is labile; eye contact appropriate; Speech is normal rate, volume and not pressured; continues disorganized with flight of ideas; denies SI/HI/VH/AH. Diagnostics Vital Signs (24Hr): Vital Signs - 24 hr 03/08/25 15:25 03/08/25 20:00 03/08/25 21:24 Temperature 98.9 F Pulse Rate 120 H 108 H Respiratory Rate 16 Blood Pressure 141/92 H 145/89 H 144/90 H Pulse Oximetry 95 Oxygen Delivery Method Room Air 03/09/25 07:34 03/09/25 08:48 Temperature 97.6 F Pulse Rate 106 H 111 H Respiratory Rate 20 Blood Pressure 166/95 H Pulse Oximetry 93 Oxygen Delivery Method Room Air BMI result Body Mass Index 45.9 Labs 03/09/25 07:55 03/09/25 07:55 Labs: Laboratory Results - last 48 hr 03/08/25 03/09/25 08:37 07:55 WBC 10.7 RBC 5.55 Hgb 15.9 Hct 46.8 MCV 84.3 MCH 28.6 MCHC 34.0 RDW 12.8 Plt Count 275 MPV 10.8 Immature Gran % (Auto) 1.0 H Neut % (Auto) 73.3 H Lymph % (Auto) 12.1 L [place] % (Auto) 11.2 H Eos % (Auto) 2.0 Baso % (Auto) 0.4 Lymph # (Auto) 1.3 [place] # (Auto) 1.2 Eos # (Auto) 0.2 Baso # (Auto) 0.0 Abs Immat Gran (auto) 0.11 H Absolute Neuts (auto) 7.9 Absolute Nucleated RBC 0.000 Nucleated RBC % (auto) 0.0 Sodium 139 140 Potassium 3.8 4.1 Chloride 105 105 Carbon Dioxide 27 28 Anion Gap 11 L 11 L BUN 9 10 Creatinine 0.78 0.75 Estim Creat Clear Calc 201.9 210.0 Estimated GFR > 60 > 60 Random Glucose 163 H Calcium 9.1 Total Bilirubin 0.2 Direct Bilirubin < 0.2 AST 37 ALT 54 H Alkaline Phosphatase 86 Total Protein 6.6 Albumin 3.8 TSH 2.59 [place] 0.29 L Medications Medications Current Medications Acetaminophen (Acetaminophen 325 Mg Tablet) 650 mg PO Q6H PRN PRN Reason: Headache/Pain, Scale 1-10 Last Admin: 03/09/25 05:42 Dose: 650 mg Al Hydroxide/Mg Hydroxide (Magnesium Hydrox/Alum Hydrox 30 Ml Oral.Susp) 30 ml PO Q6H PRN PRN Reason: Heartburn/Nausea Amlodipine Besylate (Amlodipine Besylate 10 Mg Tablet) 10 mg PO BEDTIME DIXIE; Protocol Last Admin: 03/08/25 21:24 Dose: 10 mg Chlorpromazine HCl (Chlorpromazine Hcl 100 Mg Tablet) 200 mg PO Q6H PRN PRN Reason: agitation Last Admin: 03/09/25 10:56 Dose: 200 mg Clotrimazole (Clotrimazole 1 % Cream 15 Gm Tube) 1 appl TOPICAL BID DIXIE; Protocol Last Admin: 03/09/25 08:50 Dose: Not Given Diazepam (Diazepam 5 Mg Tablet) 10 mg PO Q6H PRN PRN Reason: agitation Last Admin: 03/09/25 10:56 Dose: 10 mg Divalproex Sodium (Divalproex Sodium Er 500 Mg Tab.Er.24h) 1,500 mg PO BEDTIME DIXIE [place] Carbonate ([place] Carbonate Er 450 Mg Tablet.Er) 900 mg PO BID DIXIE Magnesium Hydroxide (Milk Of Magnesia 30 Ml Oral.Susp) 30 ml PO DAILY PRN PRN Reason: Constipation Nystatin (Nystatin Powder 15 Gm Bottle) 1 appl TOPICAL TID DIXIE; Protocol Last Admin: 03/09/25 08:50 Dose: Not Given Olanzapine (Olanzapine 10 Mg Tablet) 20 mg PO BEDTIME DIXIE Last Admin: 03/08/25 21:23 Dose: 20 mg Olanzapine (Olanzapine 5 Mg Tablet) 5 mg PO Q4H PRN PRN Reason: agitation Propranolol HCl (Propranolol Hcl 10 Mg Tablet) 10 mg PO BID DIXIE; Protocol Last Admin: 03/09/25 08:48 Dose: 10 mg Testosterone Cypionate (Testosterone Cypionate 200 Mg/1 Ml Vial) 100 mg IM Th [facility] Last Admin: 03/09/25 09:40 Dose: 100 mg Allergies Allergies Allergy/AdvReac Type Severity Reaction Status Date / Time naloxone Allergy Unknown Verified 03/01/25 12:51 Assessment & Plan Assessment & Plan (1) Bipolar disorder, current episode manic severe with psychotic features: Status: Acute Code(s): F31.2 - Bipolar disorder, current episode manic severe with psychotic features Plan per CARE team bruna tompkins with h/o bipolar disorder Dx was BIBA from [facility], where he had stripped naked, urinated on the floor, and was kneeling and praying. once in [facility] [place] he was behaving in an erratic manner, sometimes aggressive or unsafe (attempting elopement). he required IM medications on numerous occasions over several days while there. he was described by CARE team clinician as not oriented to person, place, or circumstance while in the ED. he believed he was in heaven. fecal smears were noted on his sheets. he was RIS and of labile affect. per collateral from pt's mother, pt had been adherent to medications until about 5 months ago. she reports that she noticed a change in him a couple of weeks ago. 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 she stated he was arrested for unknown reasons after leaving for the gym last . utox NEG (aside from benzos, which he was given in the ED). on interview with MD, pt is apparently quite sedated from thorazine given in the ED shortly prior to transfer. he indicates euthymic mood and denies SI/HI/AVH. groin rash noted. pt was started on lithium and zyprexa, which he has taken in the past successfully. offer lithium and zyprexa. thorazine and valium PRN agitation. DC ibuprofen and lisinopril due to restarting lithium. medical consult for HTN, groin rash. also elevated WBC, PMN predominant, unclear etiology. 03/04: disorganized. oriented to self. labile. presents with flight of ideas.walking around at times with eyes closed. incontinent of urine x2 this morning. medication compliant. continues on 1:1 safety checks. continue current tx plan. 03/05: In and out of room. disrobed x1. incontinent of urine x1. Showered. Moments of lucidity; pt was able to state name of hospital and date. He reports he wants to stay in the hospital for mental health treatment; pt signed CV; arriola warning given. pt stated, I want to stay here and get help. I don't remember my medications but my mother does . Continue current tx plan. 03/06: Active on unit. disrobed x1. has not been incontinent of urine so far today. More organized, however continues disorganized. Placed his hospital rocky under running water and wore it but changed with staff assistance. He reports feeling happy today but is unable to state reason. States he is disrobing to shower; educated he can't disrobe in front of others. denies any side effects from medications. T/W spoke to patients mother, Tory, with pt's consent. Pt's mother states she does not know his medication hx or his outpatient prescriber's name. Continue current tx plan. 03/07: Active on unit. did not disrobed or have incontinence today. disorganized. Patient thanked T/W for putting his dogs in the kennel and giving him a picture of an elephant; T/W informed pt neither of those were done by them; pt stated, well I remember that you did that . Continues to report feeling happy today because he's in the hospital. He feels the medications are great ; lithium level to be drawn on 03/09/25; pt aware. Continue current tx plan. 03/08: Patient notes that he feels great. He denies anxiety or depression. He denies SI/HI/AH/VH. He is religiously preoccupied he notes that he prays to Allah/God and sees Him in different form. Continue current regimen. 03/09: Active on unit. social with peers. labile. [place] level 0.29 on 03/09/25. medication compliant. Per nursing, slept 7 hours last night. [place] increased to 900mg PO BID. Start: Depakote ER 1500mg PO bedtime. Patient educated on: diagnosis and medication risk/benefits Reason for continued inpatient stay Substantial Risk for: med/psych decompensation Time Spent With Patient Time: Total time managing care of this patient today _20___ minutes.
[2025-03-09 20:00] VITALS: BP 166/85; PULSE 100; RESP 18; TEMP 36.2; O2SAT 96
[2025-03-09 20:29] VITALS: BP 166/85
[2025-03-09 20:30] VITALS: BP 166/85; PULSE 115
[2025-03-10 07:34] VITALS: BP 135/87; PULSE 107; RESP 18; TEMP 36.4; O2SAT 94
[2025-03-10 09:04] VITALS: BP 165/93; PULSE 116
--- NOTE | 2025-03-10 10:20 | HO.PSYCHPN ---
Subjective Subjective Date of Service: 03/10/25 Reason For Visit: raoul Subjective Notes: Conditional Voluntary Interim History: Active on unit. social with peers. medication compliant. labile. cheerful in the morning, became irritable in the afternoon. Patient stated, I feel great! I got everything I want in life right here! . denies SI/HI/VH/AH. denies any side effects from medications. per nursing, slept 6 hours last night. Continue current tx plan. Medication Compliance: Yes Side effects from medications: No Attending Groups: Yes Review of Systems Review of Systems limited due to mental status Yes Unobtainable due to mental condition Mental Status Exam Mental Status Exam Narrative: Pt is alert and oriented; behavior is cooperative and calm; dressed in hospital attire; mood is labile; eye contact appropriate; Speech is normal rate, volume and not pressured; continues disorganized with flight of ideas; denies SI/HI/VH/AH. Diagnostics Vital Signs (24Hr): Vital Signs - 24 hr 03/09/25 20:00 03/09/25 20:29 03/09/25 20:30 Temperature 97.2 F Pulse Rate 100 115 H Respiratory Rate 18 Blood Pressure 166/85 H 166/85 H 166/85 H Pulse Oximetry 96 Oxygen Delivery Method Room Air 03/10/25 07:34 03/10/25 09:04 Temperature 97.5 F Pulse Rate 107 H 116 H Respiratory Rate 18 Blood Pressure 135/87 165/93 H Pulse Oximetry 94 Oxygen Delivery Method Room Air BMI result Body Mass Index 46.4 Labs 03/09/25 07:55 03/09/25 07:55 Labs: Laboratory Results - last 48 hr 03/09/25 07:55 WBC 10.7 RBC 5.55 Hgb 15.9 Hct 46.8 MCV 84.3 MCH 28.6 MCHC 34.0 RDW 12.8 Plt Count 275 MPV 10.8 Immature Gran % (Auto) 1.0 H Neut % (Auto) 73.3 H Lymph % (Auto) 12.1 L [place] % (Auto) 11.2 H Eos % (Auto) 2.0 Baso % (Auto) 0.4 Lymph # (Auto) 1.3 [place] # (Auto) 1.2 Eos # (Auto) 0.2 Baso # (Auto) 0.0 Abs Immat Gran (auto) 0.11 H Absolute Neuts (auto) 7.9 Absolute Nucleated RBC 0.000 Nucleated RBC % (auto) 0.0 Sodium 140 Potassium 4.1 Chloride 105 Carbon Dioxide 28 Anion Gap 11 L BUN 10 Creatinine 0.75 Estim Creat Clear Calc 210.0 Estimated GFR > 60 Total Bilirubin 0.2 Direct Bilirubin < 0.2 AST 37 ALT 54 H Alkaline Phosphatase 86 Total Protein 6.6 Albumin 3.8 TSH 2.59 [place] 0.29 L Medications Medications Current Medications Acetaminophen (Acetaminophen 325 Mg Tablet) 650 mg PO Q6H PRN PRN Reason: Headache/Pain, Scale 1-10 Last Admin: 03/10/25 07:07 Dose: 650 mg Al Hydroxide/Mg Hydroxide (Magnesium Hydrox/Alum Hydrox 30 Ml Oral.Susp) 30 ml PO Q6H PRN PRN Reason: Heartburn/Nausea Amlodipine Besylate (Amlodipine Besylate 10 Mg Tablet) 10 mg PO BEDTIME DIXIE; Protocol Last Admin: 03/09/25 20:29 Dose: 10 mg Chlorpromazine HCl (Chlorpromazine Hcl 100 Mg Tablet) 200 mg PO Q6H PRN PRN Reason: agitation Last Admin: 03/09/25 20:30 Dose: 200 mg Clotrimazole (Clotrimazole 1 % Cream 15 Gm Tube) 1 appl TOPICAL BID DIXIE; Protocol Last Admin: 03/10/25 09:05 Dose: Not Given Diazepam (Diazepam 5 Mg Tablet) 10 mg PO Q6H PRN PRN Reason: agitation Last Admin: 03/09/25 20:27 Dose: 10 mg Divalproex Sodium (Divalproex Sodium Er 500 Mg Tab.Er.24h) 1,500 mg PO BEDTIME DIXIE Last Admin: 03/09/25 20:28 Dose: 1,500 mg [place] Carbonate ([place] Carbonate Er 450 Mg Tablet.Er) 900 mg PO BID DIXIE Last Admin: 03/10/25 09:03 Dose: 900 mg Magnesium Hydroxide (Milk Of Magnesia 30 Ml Oral.Susp) 30 ml PO DAILY PRN PRN Reason: Constipation Nystatin (Nystatin Powder 15 Gm Bottle) 1 appl TOPICAL TID DIXIE; Protocol Last Admin: 03/10/25 09:05 Dose: Not Given Olanzapine (Olanzapine 10 Mg Tablet) 20 mg PO BEDTIME DIXIE Last Admin: 03/09/25 20:31 Dose: 20 mg Olanzapine (Olanzapine 5 Mg Tablet) 5 mg PO Q4H PRN PRN Reason: agitation Propranolol HCl (Propranolol Hcl 10 Mg Tablet) 10 mg PO BID [facility]; Protocol Last Admin: 03/10/25 09:04 Dose: 10 mg Testosterone Cypionate (Testosterone Cypionate 200 Mg/1 Ml Vial) 100 mg IM [facility] Last Admin: 03/09/25 09:40 Dose: 100 mg Allergies Allergies Allergy/AdvReac Type Severity Reaction Status Date / Time naloxone Allergy Unknown Verified 03/01/25 12:51 Assessment & Plan Assessment & Plan (1) Bipolar disorder, current episode manic severe with psychotic features: Status: Acute Code(s): F31.2 - Bipolar disorder, current episode manic severe with psychotic features Plan per CARE team leda pt with h/o bipolar disorder Dx was BIB[facility] from [facility], where he had stripped naked, urinated on the floor, and was kneeling and praying. once in [facility] ED he was behaving in an erratic manner, sometimes aggressive or unsafe (attempting elopement). he required IM medications on numerous occasions over several days while there. he was described by CARE team clinician as not oriented to person, place, or circumstance while in the ED. he believed he was in heaven. fecal smears were noted on his sheets. he was RIS and of labile affect. per collateral from pt's mother, pt had been adherent to medications until about 5 months ago. she reports that she noticed a change in him a couple of weeks ago. 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 she stated he was arrested for unknown reasons after leaving for the gym last . utox NEG (aside from benzos, which he was given in the ED). on interview with MD, pt is apparently quite sedated from thorazine given in the ED shortly prior to transfer. he indicates euthymic mood and denies SI/HI/AVH. groin rash noted. pt was started on lithium and zyprexa, which he has taken in the past successfully. offer lithium and zyprexa. thorazine and valium PRN agitation. DC ibuprofen and lisinopril due to restarting lithium. medical consult for HTN, groin rash. also elevated WBC, PMN predominant, unclear etiology. 03/04: disorganized. oriented to self. labile. presents with flight of ideas.walking around at times with eyes closed. incontinent of urine x2 this morning. medication compliant. continues on 1:1 safety checks. continue current tx plan. 03/05: In and out of room. disrobed x1. incontinent of urine x1. Showered. Moments of lucidity; pt was able to state name of hospital and date. He reports he wants to stay in the hospital for mental health treatment; pt signed CV; arriola warning given. pt stated, I want to stay here and get help. I don't remember my medications but my mother does . Continue current tx plan. 03/06: Active on unit. disrobed x1. has not been incontinent of urine so far today. More organized, however continues disorganized. Placed his hospital rocky under running water and wore it but changed with staff assistance. He reports feeling happy today but is unable to state reason. States he is disrobing to shower; educated he can't disrobe in front of others. denies any side effects from medications. T/W spoke to patients mother, Tory, with pt's consent. Pt's mother states she does not know his medication hx or his outpatient prescriber's name. Continue current tx plan. 03/07: Active on unit. did not disrobed or have incontinence today. disorganized. Patient thanked T/W for putting his dogs in the kennel and giving him a picture of an elephant; T/W informed pt neither of those were done by them; pt stated, well I remember that you did that . Continues to report feeling happy today because he's in the hospital. He feels the medications are great ; lithium level to be drawn on 03/09/25; pt aware. Continue current tx plan. 03/08: Patient notes that he feels great. He denies anxiety or depression. He denies SI/HI/AH/VH. He is religiously preoccupied he notes that he prays to Allah/God and sees Him in different form. Continue current regimen. 03/09: Active on unit. social with peers. labile. [place] level 0.29 on 03/09/25. medication compliant. Per nursing, slept 7 hours last night. [place] increased to 900mg PO BID. Start: Depakote ER 1500mg PO bedtime. 03/10: Active on unit. social with peers. medication compliant. labile. cheerful in the morning, became irritable in the afternoon. Patient stated, I feel great! I got everything I want in life right here! . denies SI/HI/VH/AH. denies any side effects from medications. per nursing, slept 6 hours last night. Continue current tx plan. Patient educated on: diagnosis and medication risk/benefits Reason for continued inpatient stay Substantial Risk for: med/psych decompensation Time Spent With Patient Time: Total time managing care of this patient today _20___ minutes.
[2025-03-10] MEDS: Milk of Magnesia 30 ML ORAL.SUSP PO (10:27)
[2025-03-10 20:46] VITALS: BP 132/98; PULSE 107; TEMP 36.7; O2SAT 97
[2025-03-11 07:47] VITALS: BP 134/84; PULSE 110; RESP 16; TEMP 36.4; O2SAT 97
[2025-03-11 20:18] VITALS: BP 140/86; PULSE 113; RESP 16; TEMP 36.2; O2SAT 97
[2025-03-11 22:53] VITALS: BP 141/92; PULSE 110
--- NOTE | 2025-03-11 23:11 | HO.PSYCHPN ---
Subjective Subjective Date of Service: 03/11/25 Reason For Visit: raoul Subjective Notes: Conditional Voluntary Healthcare Proxy: No Guardianship: No Medical Problems Affecting Mental Status: No Interim History: Medical record and nursing notes reviewed; case discussed during rounds with team/nursing staff, and met with patient for supportive therapy/psychoeducation, as well as medication management. Slept for 4.5 hours, medication compliant except for night stand and other creams for his groin which is resolved. Good appetite. Continued to be on close observation. Pacing, happy, pressured speech, but pleasant and cooperative. It was sometimes he having tough time remove himself from the situation. He saw people around 1 of the peers, take time to redirect him away from that scene. Reports since his girlfriend passed 5 years ago, his mental health has been declined but he is working on getting better. No incontinence issues. Denies other safety concerns. Medication Compliance: Yes (Refused cream/nystatin for rash in groin area. ) Side effects from medications: No Attending Groups: Yes Review of Systems Acute medical concerns: No Medical Review of Systems: unchanged Review of Systems Review of Systems Constitutional: Denies fatigue and Denies fever(s) Cardiovascular: Denies chest pain and Denies dyspnea Respiratory: Denies dyspnea Gastrointestinal: Denies abdominal pain Psychiatric: denies suicidal ideation Endocrine: Denies fatigue Yes all other systems are reviewed and are negative Mental Status Exam Mental Status Exam Narrative: Pt is alert and oriented; behavior is cooperative and calm; dressed in casual attire; mood is not labile; Mood is great, happy , eye contact appropriate; Speech is normal rate, volume with pressured; continues disorganized with flight of ideas; denies SI/HI/VH/AH. Diagnostics Vital Signs (24Hr): Vital Signs - 24 hr 03/11/25 07:47 03/11/25 22:53 03/11/25 22:53 Temperature 97.5 F Pulse Rate 110 H 110 H Respiratory Rate 16 Blood Pressure 134/84 141/92 H 141/92 H Pulse Oximetry 97 Oxygen Delivery Method Room Air BMI result Body Mass Index 46.4 Labs 03/09/25 07:55 03/09/25 07:55 Medications Medications Current Medications Acetaminophen (Acetaminophen 325 Mg Tablet) 650 mg PO Q6H PRN PRN Reason: Headache/Pain, Scale 1-10 Last Admin: 03/11/25 05:38 Dose: 650 mg Al Hydroxide/Mg Hydroxide (Magnesium Hydrox/Alum Hydrox 30 Ml Oral.Susp) 30 ml PO Q6H PRN PRN Reason: Heartburn/Nausea Amlodipine Besylate (Amlodipine Besylate 10 Mg Tablet) 10 mg PO BEDTIME DIXIE; Protocol Last Admin: 03/11/25 22:53 Dose: 10 mg Chlorpromazine HCl (Chlorpromazine Hcl 100 Mg Tablet) 200 mg PO Q6H PRN PRN Reason: agitation Last Admin: 03/10/25 16:03 Dose: 200 mg Clotrimazole (Clotrimazole 1 % Cream 15 Gm Tube) 1 appl TOPICAL BID PRN; Protocol PRN Reason: rash Diazepam (Diazepam 5 Mg Tablet) 10 mg PO Q6H PRN PRN Reason: agitation Last Admin: 03/10/25 16:04 Dose: 10 mg Divalproex Sodium (Divalproex Sodium Er 500 Mg Tab.Er.24h) 1,500 mg PO BEDTIME DIXIE Last Admin: 03/11/25 22:53 Dose: 1,[address] [place] Carbonate ([place] Carbonate Er 450 Mg Tablet.Er) 900 mg PO BID DIXIE Last Admin: 03/11/25 22:53 Dose: 900 mg Magnesium Hydroxide (Milk Of Magnesia 30 Ml Oral.Susp) 30 ml PO DAILY PRN PRN Reason: Constipation Last Admin: 03/10/25 10:27 Dose: 30 ml Nystatin (Nystatin Powder 15 Gm Bottle) 1 appl TOPICAL TID PRN; Protocol PRN Reason: rash Olanzapine (Olanzapine 10 Mg Tablet) 20 mg PO BEDTIME DIXIE Last Admin: 03/11/25 22:53 Dose: 20 mg Olanzapine (Olanzapine 5 Mg Tablet) 5 mg PO Q4H PRN PRN Reason: agitation Propranolol HCl (Propranolol Hcl 10 Mg Tablet) 10 mg PO BID DIIXE; Protocol Last Admin: 03/11/25 22:53 Dose: 10 mg Testosterone Cypionate (Testosterone Cypionate 200 Mg/1 Ml Vial) 100 mg IM Th [facility] Last Admin: 03/09/25 09:40 Dose: 100 mg Allergies Allergies Allergy/AdvReac Type Severity Reaction Status Date / Time naloxone Allergy Unknown Verified 03/01/25 12:51 Assessment & Plan Assessment & Plan (1) Bipolar disorder, current episode manic severe with psychotic features: Status: Acute Code(s): F31.2 - Bipolar disorder, current episode manic severe with psychotic features Plan per CARE team ledabruna with h/o bipolar disorder Dx was BIBA from [facility], where he had stripped naked, urinated on the floor, and was kneeling and praying. once in [facility] [place] he was behaving in an erratic manner, sometimes aggressive or unsafe (attempting elopement). he required IM medications on numerous occasions over several days while there. he was described by CARE team clinician as not oriented to person, place, or circumstance while in the ED. he believed he was in heaven. fecal smears were noted on his sheets. he was RIS and of labile affect. per collateral from pt's mother, pt had been adherent to medications until about 5 months ago. she reports that she noticed a change in him a couple of weeks ago. 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 she stated he was arrested for unknown reasons after leaving for the gym last . utox NEG (aside from benzos, which he was given in the ED). on interview with MD, pt is apparently quite sedated from thorazine given in the ED shortly prior to transfer. he indicates euthymic mood and denies SI/HI/AVH. groin rash noted. pt was started on lithium and zyprexa, which he has taken in the past successfully. offer lithium and zyprexa. thorazine and valium PRN agitation. DC ibuprofen and lisinopril due to restarting lithium. medical consult for HTN, groin rash. also elevated WBC, PMN predominant, unclear etiology. 03/04: disorganized. oriented to self. labile. presents with flight of ideas.walking around at times with eyes closed. incontinent of urine x2 this morning. medication compliant. continues on 1:1 safety checks. continue current tx plan. 03/05: In and out of room. disrobed x1. incontinent of urine x1. Showered. Moments of lucidity; pt was able to state name of hospital and date. He reports he wants to stay in the hospital for mental health treatment; pt signed CV; arriola warning given. pt stated, I want to stay here and get help. I don't remember my medications but my mother does . Continue current tx plan. 03/06: Active on unit. disrobed x1. has not been incontinent of urine so far today. More organized, however continues disorganized. Placed his hospital rocky under running water and wore it but changed with staff assistance. He reports feeling happy today but is unable to state reason. States he is disrobing to shower; educated he can't disrobe in front of others. denies any side effects from medications. T/W spoke to patients mother, Tory, with pt's consent. Pt's mother states she does not know his medication hx or his outpatient prescriber's name. Continue current tx plan. 03/07: Active on unit. did not disrobed or have incontinence today. disorganized. Patient thanked T/W for putting his dogs in the kennel and giving him a picture of an elephant; T/W informed pt neither of those were done by them; pt stated, well I remember that you did that . Continues to report feeling happy today because he's in the hospital. He feels the medications are great ; lithium level to be drawn on 03/09/25; pt aware. Continue current tx plan. 03/08: Patient notes that he feels great. He denies anxiety or depression. He denies SI/HI/AH/VH. He is religiously preoccupied he notes that he prays to Allah/God and sees Him in different form. Continue current regimen. 03/09: Active on unit. social with peers. labile. [place] level 0.29 on 03/09/25. medication compliant. Per nursing, slept 7 hours last night. [place] increased to 900mg PO BID. Start: Depakote ER 1500mg PO bedtime. 03/10: Active on unit. social with peers. medication compliant. labile. cheerful in the morning, became irritable in the afternoon. Patient stated, I feel great! I got everything I want in life right here! . denies SI/HI/VH/AH. denies any side effects from medications. per nursing, slept 6 hours last night. Continue current tx plan. 03/11/25: Slept for 4.5 hours, medication compliant except for night stand and other creams for his groin which is resolved. Good appetite. Continued to be on close observation. Pacing, happy, pressured speech, but pleasant and cooperative. It was sometimes he having tough time remove himself from the situation. He saw people around 1 of the peers, take time to redirect him away from that scene. Reports since his girlfriend passed 5 years ago, his mental health has been declined but he is working on getting better. No incontinence issues. Denies other safety concerns. Patient educated on: diagnosis, medication risk/benefits and therapeutic strategies Informed Consent: understands and further education needed Reason for continued inpatient stay Substantial Risk for: med/psych decompensation Time Spent With Patient Time: Total time managing care of this patient today ____ minutes.
[2025-03-12 08:00] VITALS: BP 183/94; PULSE 108; RESP 18; TEMP 36.2; O2SAT 99
[2025-03-12 08:13] VITALS: BP 183/84; PULSE 108; RESP 18; TEMP 36.2; O2SAT 97
[2025-03-12 19:26] VITALS: BP 147/84; PULSE 109; RESP 16; TEMP 36.6; O2SAT 96
[2025-03-12 20:50] VITALS: BP 147/84; PULSE 109
[2025-03-12 20:51] VITALS: BP 147/84
--- NOTE | 2025-03-12 21:37 | HO.PSYCHPN ---
Subjective Subjective Date of Service: 03/12/25 Reason For Visit: raoul Subjective Notes: Conditional Voluntary Healthcare Proxy: No Guardianship: No Medical Problems Affecting Mental Status: No Interim History: Medical record and nursing notes reviewed; case discussed during rounds with team/nursing staff, and met with patient for supportive therapy/psychoeducation, as well as medication management. Slept for 4-5 hours last night. Reported that he does not not feel tired. Visible, social, and attended groups, pressure speech. He can be irritable but redirectable. He reported that he call mom, people in house very negative. He feel like he need to be here for his mental health and feel happy with where I am now and accepted help. Remain on close observation. Walking with bare foot which he reports is better for him and his shoes does not make her his fit comfortable. Denies depression/or anxiety, denies voices/hallucinations. Medication Compliance: Yes Side effects from medications: No Attending Groups: Yes Review of Systems Acute medical concerns: No Medical Review of Systems: unchanged Review of Systems Review of Systems Constitutional: Denies fatigue and Denies fever(s) Cardiovascular: Denies chest pain and Denies dyspnea Respiratory: Denies dyspnea Gastrointestinal: Denies abdominal pain Psychiatric: denies suicidal ideation Endocrine: Denies fatigue Yes all other systems are reviewed and are negative Mental Status Exam Mental Status Exam Narrative: Pt is alert and oriented; behavior is cooperative and calm; dressed in casual attire; mood is not labile; Mood is great, happy , eye contact appropriate; Speech is normal rate, volume with pressured; continues disorganized with flight of ideas; denies SI/HI/VH/AH. Diagnostics Vital Signs (24Hr): Vital Signs - 24 hr 03/11/25 22:53 03/11/25 22:53 03/12/25 08:00 Temperature 97.2 F Pulse Rate 110 H 108 H Respiratory Rate 18 Blood Pressure 141/92 H 141/92 H 183/94 H Pulse Oximetry 99 Oxygen Delivery Method Room Air 03/12/25 08:13 03/12/25 20:50 03/12/25 20:51 Temperature 97.2 F Pulse Rate 108 H 109 H Respiratory Rate 18 Blood Pressure 183/84 H 147/84 H 147/84 H Pulse Oximetry 97 Oxygen Delivery Method Room Air BMI result Body Mass Index 46.4 Labs 03/09/25 07:55 03/09/25 07:55 Medications Medications Current Medications Acetaminophen (Acetaminophen 325 Mg Tablet) 650 mg PO Q6H PRN PRN Reason: Headache/Pain, Scale 1-10 Last Admin: 03/12/25 20:54 Dose: 650 mg Al Hydroxide/Mg Hydroxide (Magnesium Hydrox/Alum Hydrox 30 Ml Oral.Susp) 30 ml PO Q6H PRN PRN Reason: Heartburn/Nausea Amlodipine Besylate (Amlodipine Besylate 10 Mg Tablet) 10 mg PO BEDTIME DIXIE; Protocol Last Admin: 03/12/25 20:51 Dose: 10 mg Chlorpromazine HCl (Chlorpromazine Hcl 100 Mg Tablet) 200 mg PO Q6H PRN PRN Reason: agitation Last Admin: 03/10/25 16:03 Dose: 200 mg Clotrimazole (Clotrimazole 1 % Cream 15 Gm Tube) 1 appl TOPICAL BID PRN; Protocol PRN Reason: rash Diazepam (Diazepam 5 Mg Tablet) 10 mg PO Q6H PRN PRN Reason: agitation Last Admin: 03/10/25 16:04 Dose: 10 mg Divalproex Sodium (Divalproex Sodium Er 500 Mg Tab.Er.24h) 1,500 mg PO BEDTIME DIXIE Last Admin: 03/12/25 20:50 Dose: 1,500 mg [place] Carbonate ([place] Carbonate Er 450 Mg Tablet.Er) 900 mg PO BID DIXIE Last Admin: 03/12/25 20:50 Dose: 900 mg Magnesium Hydroxide (Milk Of Magnesia 30 Ml Oral.Susp) 30 ml PO DAILY PRN PRN Reason: Constipation Last Admin: 03/10/25 10:27 Dose: 30 ml Nystatin (Nystatin Powder 15 Gm Bottle) 1 appl TOPICAL TID PRN; Protocol PRN Reason: rash Olanzapine (Olanzapine 10 Mg Tablet) 20 mg PO BEDTIME DIXIE Last Admin: 03/12/25 20:50 Dose: 20 mg Olanzapine (Olanzapine 5 Mg Tablet) 5 mg PO Q4H PRN PRN Reason: agitation Propranolol HCl (Propranolol Hcl 10 Mg Tablet) 10 mg PO BID DIXIE; Protocol Last Admin: 03/12/25 20:50 Dose: 10 mg Testosterone Cypionate (Testosterone Cypionate 200 Mg/1 Ml Vial) 100 mg IM Th DIXIE Last Admin: 03/09/25 09:40 Dose: 100 mg Allergies Allergies Allergy/AdvReac Type Severity Reaction Status Date / Time naloxone Allergy Unknown Verified 03/01/25 12:51 Assessment & Plan Assessment & Plan (1) Bipolar disorder, current episode manic severe with psychotic features: Status: Acute Code(s): F31.2 - Bipolar disorder, current episode manic severe with psychotic features Plan per CARE team ledabruna with h/o bipolar disorder Dx was BIBA from [facility], where he had stripped naked, urinated on the floor, and was kneeling and praying. once in [facility] ED he was behaving in an erratic manner, sometimes aggressive or unsafe (attempting elopement). he required IM medications on numerous occasions over several days while there. he was described by CARE team clinician as not oriented to person, place, or circumstance while in the ED. he believed he was in heaven. fecal smears were noted on his sheets. he was RIS and of labile affect. per collateral from pt's mother, pt had been adherent to medications until about 5 months ago. she reports that she noticed a change in him a couple of weeks ago. 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 she stated he was arrested for unknown reasons after leaving for the gym last . utox NEG (aside from benzos, which he was given in the ED). on interview with MD, pt is apparently quite sedated from thorazine given in the ED shortly prior to transfer. he indicates euthymic mood and denies SI/HI/AVH. groin rash noted. pt was started on lithium and zyprexa, which he has taken in the past successfully. offer lithium and zyprexa. thorazine and valium PRN agitation. DC ibuprofen and lisinopril due to restarting lithium. medical consult for HTN, groin rash. also elevated WBC, PMN predominant, unclear etiology. 03/04: disorganized. oriented to self. labile. presents with flight of ideas.walking around at times with eyes closed. incontinent of urine x2 this morning. medication compliant. continues on 1:1 safety checks. continue current tx plan. 03/05: In and out of room. disrobed x1. incontinent of urine x1. Showered. Moments of lucidity; pt was able to state name of hospital and date. He reports he wants to stay in the hospital for mental health treatment; pt signed CV; arriola warning given. pt stated, I want to stay here and get help. I don't remember my medications but my mother does . Continue current tx plan. 03/06: Active on unit. disrobed x1. has not been incontinent of urine so far today. More organized, however continues disorganized. Placed his hospital rocky under running water and wore it but changed with staff assistance. He reports feeling happy today but is unable to state reason. States he is disrobing to shower; educated he can't disrobe in front of others. denies any side effects from medications. T/W spoke to patients mother, Tory, with pt's consent. Pt's mother states she does not know his medication hx or his outpatient prescriber's name. Continue current tx plan. 03/07: Active on unit. did not disrobed or have incontinence today. disorganized. Patient thanked T/W for putting his dogs in the kennel and giving him a picture of an elephant; T/W informed pt neither of those were done by them; pt stated, well I remember that you did that . Continues to report feeling happy today because he's in the hospital. He feels the medications are great ; lithium level to be drawn on 03/09/25; pt aware. Continue current tx plan. 03/08: Patient notes that he feels great. He denies anxiety or depression. He denies SI/HI/AH/VH. He is religiously preoccupied he notes that he prays to Allah/God and sees Him in different form. Continue current regimen. 03/09: Active on unit. social with peers. labile. [place] level 0.29 on 03/09/25. medication compliant. Per nursing, slept 7 hours last night. [place] increased to 900mg PO BID. Start: Depakote ER 1500mg PO bedtime. 03/10: Active on unit. social with peers. medication compliant. labile. cheerful in the morning, became irritable in the afternoon. Patient stated, I feel great! I got everything I want in life right here! . denies SI/HI/VH/AH. denies any side effects from medications. per nursing, slept 6 hours last night. Continue current tx plan. 03/11/25: Slept for 4.5 hours, medication compliant except for night stand and other creams for his groin which is resolved. Good appetite. Continued to be on close observation. Pacing, happy, pressured speech, but pleasant and cooperative. It was sometimes he having tough time remove himself from the situation. He saw people around 1 of the peers, take time to redirect him away from that scene. Reports since his girlfriend passed 5 years ago, his mental health has been declined but he is working on getting better. No incontinence issues. Denies other safety concerns. 03/12/25: Slept for 4-5 hours last night. Reported that he does not not feel tired. Visible, social, and attended groups, pressure speech. He can be irritable but redirectable. He reported that he call mom, people in house very negative. He feel like he need to be here for his mental health and feel happy with where I am now and accepted help. Remain on close observation. Walking with bare foot which he reports is better for him and his shoes does not make her his fit comfortable. Denies depression/or anxiety, denies voices/hallucinations. Patient educated on: medication risk/benefits and therapeutic strategies Informed Consent: understands and further education needed Reason for continued inpatient stay Substantial Risk for: med/psych decompensation Time Spent With Patient Time: Total time managing care of this patient today ____ minutes.
[2025-03-13 08:00] VITALS: BP 178/99; PULSE 105; RESP 16; TEMP 36.4; O2SAT 98
[2025-03-13 08:20] VITALS: BP 178/99; PULSE 105
[2025-03-13 10:02] LABS: Ammonia 27 umol/L (13-55)
[2025-03-13 10:10] LABS: Alanine Aminotransferase 86 U/L (0-40); Albumin Level 3.8 g/dL (3.5-5.0); Alkaline Phosphatase 92 U/L (39-117); Aspartate Amino Transferase 42 U/L (5-37); Total Protein 6.8 g/dL (6.5-8.0)
--- NOTE | 2025-03-13 10:26 | HO.PSYCHPN ---
Subjective Subjective Date of Service: 03/13/25 Reason For Visit: raoul Subjective Notes: Conditional Voluntary Interim History: Active on unit. social with peers. attending groups. labile. Patient continues to report feeling great ; moments of agitation. more organized; placed on 5 minute checks. denies SI/HI/VH/AH. Valproic acid level 40.2 on 03/13/25. Labs to be redrawn tomorrow morning;pt aware. Medication Compliance: Yes Side effects from medications: No Attending Groups: Yes Review of Systems Review of Systems Constitutional: Denies fatigue and Denies fever(s) Cardiovascular: Denies chest pain and Denies dyspnea Respiratory: Denies dyspnea Gastrointestinal: Denies abdominal pain Psychiatric: denies suicidal ideation Endocrine: Denies fatigue Yes all other systems are reviewed and are negative and Unobtainable due to mental condition Mental Status Exam Mental Status Exam Narrative: Pt is alert and oriented; behavior is cooperative and calm; dressed in casual attire; mood is labile; eye contact appropriate; Speech is normal rate, volume, not pressured; continues disorganized with flight of ideas; denies SI/HI/VH/AH. Diagnostics Vital Signs (24Hr): Vital Signs - 24 hr 03/12/25 19:26 03/12/25 20:50 03/12/25 20:51 Temperature 97.8 F Pulse Rate 109 H 109 H Respiratory Rate 16 Blood Pressure 147/84 H 147/84 H 147/84 H Pulse Oximetry 96 Oxygen Delivery Method Room Air 03/13/25 08:00 03/13/25 08:20 Temperature 97.5 F Pulse Rate 105 H 105 H Respiratory Rate 16 Blood Pressure 178/99 H 178/99 H Pulse Oximetry 98 Oxygen Delivery Method BMI result Body Mass Index 46.4 Labs 03/09/25 07:55 03/09/25 07:55 Labs: Laboratory Results - last 48 hr 03/13/25 09:46 Total Bilirubin 0.2 Direct Bilirubin < 0.2 AST 42 H ALT 86 H Alkaline Phosphatase 92 Ammonia 27 Total Protein 6.8 Albumin 3.8 Valproic Acid 40.2 L Medications Medications Current Medications Acetaminophen (Acetaminophen 325 Mg Tablet) 650 mg PO Q6H PRN PRN Reason: Headache/Pain, Scale 1-10 Last Admin: 03/13/25 04:49 Dose: 650 mg Al Hydroxide/Mg Hydroxide (Magnesium Hydrox/Alum Hydrox 30 Ml Oral.Susp) 30 ml PO Q6H PRN PRN Reason: Heartburn/Nausea Amlodipine Besylate (Amlodipine Besylate 10 Mg Tablet) 10 mg PO BEDTIME DIXIE; Protocol Last Admin: 03/12/25 20:51 Dose: 10 mg Chlorpromazine HCl (Chlorpromazine Hcl 100 Mg Tablet) 200 mg PO Q6H PRN PRN Reason: agitation Last Admin: 03/10/25 16:03 Dose: 200 mg Clotrimazole (Clotrimazole 1 % Cream 15 Gm Tube) 1 appl TOPICAL BID PRN; Protocol PRN Reason: rash Diazepam (Diazepam 5 Mg Tablet) 10 mg PO Q6H PRN PRN Reason: agitation Last Admin: 03/10/25 16:04 Dose: 10 mg Divalproex Sodium (Divalproex Sodium Er 500 Mg Tab.Er.24h) 1,500 mg PO BEDTIME DIXIE Last Admin: 03/12/25 20:50 Dose: 1,500 mg [place] Carbonate ([place] Carbonate Er 450 Mg Tablet.Er) 900 mg PO BID [facility] Last Admin: 03/13/25 08:21 Dose: 900 mg Magnesium Hydroxide (Milk Of Magnesia 30 Ml Oral.Susp) 30 ml PO DAILY PRN PRN Reason: Constipation Last Admin: 03/10/25 10:27 Dose: 30 ml Nystatin (Nystatin Powder 15 Gm Bottle) 1 appl TOPICAL TID PRN; Protocol PRN Reason: rash Olanzapine (Olanzapine 10 Mg Tablet) 20 mg PO BEDTIME DIXIE Last Admin: 03/12/25 20:50 Dose: 20 mg Olanzapine (Olanzapine 5 Mg Tablet) 5 mg PO Q4H PRN PRN Reason: agitation Last Admin: 03/13/25 08:20 Dose: 5 mg Propranolol HCl (Propranolol Hcl 10 Mg Tablet) 10 mg PO BID DIXIE; Protocol Last Admin: 03/13/25 08:20 Dose: 10 mg Testosterone Cypionate (Testosterone Cypionate 200 Mg/1 Ml Vial) 100 mg IM Th [facility] Last Admin: 03/09/25 09:40 Dose: 100 mg Allergies Allergies Allergy/AdvReac Type Severity Reaction Status Date / Time naloxone Allergy Unknown Verified 03/01/25 12:51 Assessment & Plan Assessment & Plan (1) Bipolar disorder, current episode manic severe with psychotic features: Status: Acute Code(s): F31.2 - Bipolar disorder, current episode manic severe with psychotic features Plan per CARE team bruna tompkins with h/o bipolar disorder Dx was BIBA from the [facility], where he had stripped naked, urinated on the floor, and was kneeling and praying. once in [facility] ED he was behaving in an erratic manner, sometimes aggressive or unsafe (attempting elopement). he required IM medications on numerous occasions over several days while there. he was described by CARE team clinician as not oriented to person, place, or circumstance while in the ED. he believed he was in heaven. fecal smears were noted on his sheets. he was RIS and of labile affect. per collateral from pt's mother, pt had been adherent to medications until about 5 months ago. she reports that she noticed a change in him a couple of weeks ago. 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 she stated he was arrested for unknown reasons after leaving for the gym last . utox NEG (aside from benzos, which he was given in the ED). on interview with MD, pt is apparently quite sedated from thorazine given in the ED shortly prior to transfer. he indicates euthymic mood and denies SI/HI/AVH. groin rash noted. pt was started on lithium and zyprexa, which he has taken in the past successfully. offer lithium and zyprexa. thorazine and valium PRN agitation. DC ibuprofen and lisinopril due to restarting lithium. medical consult for HTN, groin rash. also elevated WBC, PMN predominant, unclear etiology. 03/04: disorganized. oriented to self. labile. presents with flight of ideas.walking around at times with eyes closed. incontinent of urine x2 this morning. medication compliant. continues on 1:1 safety checks. continue current tx plan. 03/05: In and out of room. disrobed x1. incontinent of urine x1. Showered. Moments of lucidity; pt was able to state name of hospital and date. He reports he wants to stay in the hospital for mental health treatment; pt signed CV; arriola warning given. pt stated, I want to stay here and get help. I don't remember my medications but my mother does . Continue current tx plan. 03/06: Active on unit. disrobed x1. has not been incontinent of urine so far today. More organized, however continues disorganized. Placed his hospital rocky under running water and wore it but changed with staff assistance. He reports feeling happy today but is unable to state reason. States he is disrobing to shower; educated he can't disrobe in front of others. denies any side effects from medications. T/W spoke to patients mother, Tory, with pt's consent. Pt's mother states she does not know his medication hx or his outpatient prescriber's name. Continue current tx plan. 03/07: Active on unit. did not disrobed or have incontinence today. disorganized. Patient thanked T/W for putting his dogs in the kennel and giving him a picture of an elephant; T/W informed pt neither of those were done by them; pt stated, well I remember that you did that . Continues to report feeling happy today because he's in the hospital. He feels the medications are great ; lithium level to be drawn on 03/09/25; pt aware. Continue current tx plan. 03/08: Patient notes that he feels great. He denies anxiety or depression. He denies SI/HI/AH/VH. He is religiously preoccupied he notes that he prays to Allah/God and sees Him in different form. Continue current regimen. 03/09: Active on unit. social with peers. labile. [place] level 0.29 on 03/09/25. medication compliant. Per nursing, slept 7 hours last night. [place] increased to 900mg PO BID. Start: Depakote ER 1500mg PO bedtime. 03/10: Active on unit. social with peers. medication compliant. labile. cheerful in the morning, became irritable in the afternoon. Patient stated, I feel great! I got everything I want in life right here! . denies SI/HI/VH/AH. denies any side effects from medications. per nursing, slept 6 hours last night. Continue current tx plan. 03/11/25: Slept for 4.5 hours, medication compliant except for night stand and other creams for his groin which is resolved. Good appetite. Continued to be on close observation. Pacing, happy, pressured speech, but pleasant and cooperative. It was sometimes he having tough time remove himself from the situation. He saw people around 1 of the peers, take time to redirect him away from that scene. Reports since his girlfriend passed 5 years ago, his mental health has been declined but he is working on getting better. No incontinence issues. Denies other safety concerns. 03/12/25: Slept for 4-5 hours last night. Reported that he does not not feel tired. Visible, social, and attended groups, pressure speech. He can be irritable but redirectable. He reported that he call mom, people in house very negative. He feel like he need to be here for his mental health and feel happy with where I am now and accepted help. Remain on close observation. Walking with bare foot which he reports is better for him and his shoes does not make her his fit comfortable. Denies depression/or anxiety, denies voices/hallucinations. 03/13: Active on unit. social with peers. attending groups. labile. Patient continues to report feeling great ; moments of agitation. more organized; placed on 5 minute checks. denies SI/HI/VH/AH. Valproic acid level 40.2 on 03/13/25. Labs to be redrawn tomorrow morning;pt aware. Patient educated on: diagnosis and medication risk/benefits Reason for continued inpatient stay Substantial Risk for: med/psych decompensation Time Spent With Patient Time: Total time managing care of this patient today _20___ minutes.
--- NOTE | 2025-03-13 13:29 | PM.EVENT ---
Event Note Date of Service: 03/13/25 Event Note: Blood pressures continued to be elevated, we will increase propranolol to 10 mg t.i.d. and start Losartan. Time Spent With Patient Time: Total time managing care of this patient today ____ minutes.
[2025-03-13 14:03] VITALS: BP 198/88; PULSE 92
[2025-03-13 14:04] VITALS: BP 198/88
[2025-03-13 20:00] VITALS: BP 155/101; PULSE 109; RESP 18; TEMP 36.3; O2SAT 98
[2025-03-14 07:47] LABS: Ammonia 51 umol/L (13-55); Lithium 0.35 mmol/L (0.60-1.20)
[2025-03-14 07:55] LABS: Alanine Aminotransferase 68 U/L (0-40); Albumin Level 3.7 g/dL (3.5-5.0); Alkaline Phosphatase 84 U/L (39-117); Anion Gap 10 (12-20); Aspartate Amino Transferase 30 U/L (5-37); Blood Urea Nitrogen 7 mg/dL (9-16); Carbon Dioxide 28 mmol/L (22-29); Chloride 107 mmol/L (96-108); Creatinine Clr Calc Pharmacy 219.9; Estimated Glomerular Filt Rate > 60; Potassium 3.5 mmol/L (3.3-5.1); Sodium 141 mmol/L (135-145); Total Protein 6.4 g/dL (6.5-8.0)
[2025-03-14 07:56] VITALS: BP 153/93; PULSE 104; RESP 18; TEMP 36.2; O2SAT 99
--- NOTE | 2025-03-14 08:03 | PC.NURSE ---
Pt BP: 153/93, pulse 104. Asymptomatic. Reported to provider via [employer]. Answer pending.
--- NOTE | 2025-03-14 09:12 | P.PNPSI_ITS ---
Subjective Subjective Date of Service: 03/14/25 Reason For Visit: raoul Subjective Notes: Conditional Voluntary Interim History: Active on unit. social with peers. attending groups. Patient continues to report feeling great in the morning but becomes agitated as the day goes on. Patient reports he becomes agitated because he misses his dogs. Patient able to have an organized conversation. pt stated, I don't remember urinating in the room. I'm sorry if I did. Something must be working because I can sit down and have a conversation now . denies SI/HI/VH/AH. Depakote increased to 2000mg PO bedtime. Change to 15 minute safety checks. Medication Compliance: Yes Side effects from medications: No Attending Groups: Yes Mental Status Exam Mental Status Exam Narrative: Pt is alert and oriented; behavior is cooperative and calm; dressed in casual attire; mood is labile; eye contact appropriate; Speech is normal rate, volume, not pressured; organized; denies SI/HI/VH/AH. Diagnostics Vital Signs (24Hr): Vital Signs - 24 hr 03/13/25 14:03 03/13/25 14:04 03/13/25 20:00 Temperature 97.3 F Pulse Rate 92 109 H Respiratory Rate 18 Blood Pressure 198/88 H 198/88 H 155/101 H Pulse Oximetry 98 Oxygen Delivery Method Room Air 03/14/25 07:56 Temperature 97.1 F Pulse Rate 104 H Respiratory Rate 18 Blood Pressure 153/93 H Pulse Oximetry 99 Oxygen Delivery Method Room Air BMI result Body Mass Index 46.4 Labs 03/09/25 07:55 03/14/25 07:29 Labs: Laboratory Results - last 48 hr 03/13/25 03/14/25 09:46 07:29 Sodium 141 Potassium 3.5 Chloride 107 Carbon Dioxide 28 Anion Gap 10 L BUN 7 L Creatinine 0.72 Estim Creat Clear Calc 219.9 Estimated GFR > 60 Total Bilirubin 0.2 0.3 Direct Bilirubin < 0.2 0.2 AST 42 H 30 ALT 86 H 68 H Alkaline Phosphatase 92 84 Ammonia 27 51 Total Protein 6.8 6.4 L Albumin 3.8 3.7 Valproic Acid 40.2 L 36.4 L [place] 0.35 L Medications Medications Current Medications Acetaminophen (Acetaminophen 325 Mg Tablet) 650 mg PO Q6H PRN PRN Reason: Headache/Pain, Scale 1-10 Last Admin: 03/13/25 04:49 Dose: 650 mg Al Hydroxide/Mg Hydroxide (Magnesium Hydrox/Alum Hydrox 30 Ml Oral.Susp) 30 ml PO Q6H PRN PRN Reason: Heartburn/Nausea Amlodipine Besylate (Amlodipine Besylate 10 Mg Tablet) 10 mg PO BEDTIME DIXIE; Protocol Last Admin: 03/13/25 20:59 Dose: 10 mg Chlorpromazine HCl (Chlorpromazine Hcl 100 Mg Tablet) 100 mg PO Q4H PRN PRN Reason: agitation Clotrimazole (Clotrimazole 1 % Cream 15 Gm Tube) 1 appl TOPICAL BID PRN; Protocol PRN Reason: rash Diazepam (Diazepam 5 Mg Tablet) 5 mg PO Q4H PRN PRN Reason: agitation Divalproex Sodium (Divalproex Sodium Er 500 Mg Tab.Er.24h) 1,500 mg PO BEDTIME DIXIE Last Admin: 03/13/25 20:59 Dose: 1,500 mg [place] Carbonate ([place] Carbonate Er 450 Mg Tablet.Er) 900 mg PO BID DIXIE Last Admin: 03/14/25 08:43 Dose: 900 mg Losartan Potassium (Losartan Potassium 25 Mg Tablet) 25 mg PO DAILY DIXIE; Protocol Last Admin: 03/14/25 08:43 Dose: 25 mg Magnesium Hydroxide (Milk Of Magnesia 30 Ml Oral.Susp) 30 ml PO DAILY PRN PRN Reason: Constipation Last Admin: 03/10/25 10:27 Dose: 30 ml Nystatin (Nystatin Powder 15 Gm Bottle) 1 appl TOPICAL TID PRN; Protocol PRN Reason: rash Olanzapine (Olanzapine 10 Mg Tablet) 20 mg PO BEDTIME DIXIE Last Admin: 03/13/25 20:59 Dose: 20 mg Olanzapine (Olanzapine 5 Mg Tablet) 5 mg PO Q4H PRN PRN Reason: agitation Last Admin: 03/13/25 21:00 Dose: 5 mg Propranolol HCl (Propranolol Hcl 10 Mg Tablet) 10 mg PO TID DIXIE; Protocol Last Admin: 03/14/25 08:43 Dose: 10 mg Testosterone Cypionate (Testosterone Cypionate 200 Mg/1 Ml Vial) 100 mg IM Th DIXIE Last Admin: 03/09/25 09:40 Dose: 100 mg Allergies Allergies Allergy/AdvReac Type Severity Reaction Status Date / Time naloxone Allergy Unknown Verified 03/01/25 12:51 Assessment & Plan Assessment & Plan (1) Bipolar disorder, current episode manic severe with psychotic features: Status: Acute Code(s): F31.2 - Bipolar disorder, current episode manic severe with psychotic features Plan per CARE team bruna tompkins with h/o bipolar disorder Dx was BIBA from [facility], where he had stripped naked, urinated on the floor, and was kneeling and praying. once in [facility] ED he was behaving in an erratic manner, sometimes aggressive or unsafe (attempting elopement). he required IM medications on numerous occasions over several days while there. he was described by CARE team clinician as not oriented to person, place, or circumstance while in the ED. he believed he was in heaven. fecal smears were noted on his sheets. he was RIS and of labile affect. per collateral from pt's mother, pt had been adherent to medications until about 5 months ago. she reports that she noticed a change in him a couple of weeks ago. 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 she stated he was arrested for unknown reasons after leaving for the gym last . utox NEG (aside from benzos, which he was given in the ED). on interview with MD, pt is apparently quite sedated from thorazine given in the ED shortly prior to transfer. he indicates euthymic mood and denies SI/HI/AVH. groin rash noted. pt was started on lithium and zyprexa, which he has taken in the past successfully. offer lithium and zyprexa. thorazine and valium PRN agitation. DC ibuprofen and lisinopril due to restarting lithium. medical consult for HTN, groin rash. also elevated WBC, PMN predominant, unclear etiology. 03/04: disorganized. oriented to self. labile. presents with flight of ideas.walking around at times with eyes closed. incontinent of urine x2 this morning. medication compliant. continues on 1:1 safety checks. continue current tx plan. 03/05: In and out of room. disrobed x1. incontinent of urine x1. Showered. Moments of lucidity; pt was able to state name of hospital and date. He reports he wants to stay in the hospital for mental health treatment; pt signed CV; arriola warning given. pt stated, I want to stay here and get help. I don't remember my medications but my mother does . Continue current tx plan. 03/06: Active on unit. disrobed x1. has not been incontinent of urine so far today. More organized, however continues disorganized. Placed his hospital rocky under running water and wore it but changed with staff assistance. He reports feeling happy today but is unable to state reason. States he is disrobing to shower; educated he can't disrobe in front of others. denies any side effects from medications. T/W spoke to patients mother, Tory, with pt's consent. Pt's mother states she does not know his medication hx or his outpatient prescriber's name. Continue current tx plan. 03/07: Active on unit. did not disrobed or have incontinence today. disorganized. Patient thanked T/W for putting his dogs in the kennel and giving him a picture of an elephant; T/W informed pt neither of those were done by them; pt stated, well I remember that you did that . Continues to report feeling happy today because he's in the hospital. He feels the medications are great ; lithium level to be drawn on 03/09/25; pt aware. Continue current tx plan. 03/08: Patient notes that he feels great. He denies anxiety or depression. He denies SI/HI/AH/VH. He is religiously preoccupied he notes that he prays to Allah/God and sees Him in different form. Continue current regimen. 03/09: Active on unit. social with peers. labile. [place] level 0.29 on 03/09/25. medication compliant. Per nursing, slept 7 hours last night. [place] increased to 900mg PO BID. Start: Depakote ER 1500mg PO bedtime. 03/10: Active on unit. social with peers. medication compliant. labile. cheerful in the morning, became irritable in the afternoon. Patient stated, I feel great! I got everything I want in life right here! . denies SI/HI/VH/AH. denies any side effects from medications. per nursing, slept 6 hours last night. Continue current tx plan. 03/11/25: Slept for 4.5 hours, medication compliant except for night stand and other creams for his groin which is resolved. Good appetite. Continued to be on close observation. Pacing, happy, pressured speech, but pleasant and cooperative. It was sometimes he having tough time remove himself from the situation. He saw people around 1 of the peers, take time to redirect him away from that scene. Reports since his girlfriend passed 5 years ago, his mental health has been declined but he is working on getting better. No incontinence issues. Denies other safety concerns. 03/12/25: Slept for 4-5 hours last night. Reported that he does not not feel tired. Visible, social, and attended groups, pressure speech. He can be irritable but redirectable. He reported that he call mom, people in house very negative. He feel like he need to be here for his mental health and feel happy with where I am now and accepted help. Remain on close observation. Walking with bare foot which he reports is better for him and his shoes does not make her his fit comfortable. Denies depression/or anxiety, denies voices/hallucinations. 03/13: Active on unit. social with peers. attending groups. labile. Patient continues to report feeling great ; moments of agitation. more organized; placed on 5 minute checks. denies SI/HI/VH/AH. Valproic acid level 40.2 on 03/13/25. Labs to be redrawn tomorrow morning;pt aware. 03/14: Active on unit. social with peers. attending groups. Patient continues to report feeling great in the morning but becomes agitated as the day goes on. Patient reports he becomes agitated because he misses his dogs. Patient able to have an organized conversation. pt stated, I don't remember urinating in the room. I'm sorry if I did. Something must be working because I can sit down and have a conversation now . denies SI/HI/VH/AH. Depakote increased to 2000mg PO bedtime. Change to 15 minute safety checks. Patient educated on: diagnosis and medication risk/benefits Reason for continued inpatient stay Substantial Risk for: med/psych decompensation Time Spent With Patient Time: Total time managing care of this patient today _20___ minutes.
[2025-03-14 14:45] VITALS: BP 153/82; PULSE 102
[2025-03-14 20:34] VITALS: BP 172/78; PULSE 107; TEMP 37; O2SAT 99
[2025-03-15 07:33] VITALS: BP 124/68; PULSE 113; RESP 16; TEMP 36.8; O2SAT 97
--- NOTE | 2025-03-15 09:00 | HO.PSYCHPN ---
Subjective Subjective Date of Service: 03/15/25 Reason For Visit: raoul Subjective Notes: Conditional Voluntary Interim History: Active on unit. social with peers. attending groups. Patient continues to report feeling great ; no agitation noted last evening. denies SI/HI/VH/AH. He reports sleeping well last night. Per nursing, slept 8 hours. Continue current tx plan. Medication Compliance: Yes Side effects from medications: No Attending Groups: Yes Mental Status Exam Mental Status Exam Narrative: Pt is alert and oriented; behavior is cooperative, friendly and calm; dressed in casual attire; mood is described as good ; eye contact appropriate; Speech is normal rate, volume and not pressured; thought process is organized; Thought content is on tx/discharge; denies SI/HI/VH/AH. Diagnostics Vital Signs (24Hr): Vital Signs - 24 hr 03/14/25 14:45 03/14/25 20:34 03/15/25 07:33 Temperature 98.6 F 98.2 F Pulse Rate 102 H 107 H 113 H Respiratory Rate 16 Blood Pressure 153/82 H 172/78 H 124/68 Pulse Oximetry 99 97 Oxygen Delivery Method Room Air Room Air BMI result Body Mass Index 46.4 Labs 03/09/25 07:55 03/14/25 07:29 Labs: Laboratory Results - last 48 hr 03/13/25 03/14/25 09:46 07:29 Sodium 141 Potassium 3.5 Chloride 107 Carbon Dioxide 28 Anion Gap 10 L BUN 7 L Creatinine 0.72 Estim Creat Clear Calc 219.9 Estimated GFR > 60 Total Bilirubin 0.2 0.3 Direct Bilirubin < 0.2 0.2 AST 42 H 30 ALT 86 H 68 H Alkaline Phosphatase 92 84 Ammonia 27 51 Total Protein 6.8 6.4 L Albumin 3.8 3.7 Valproic Acid 40.2 L 36.4 L [place] 0.35 L Medications Medications Current Medications Acetaminophen (Acetaminophen 325 Mg Tablet) 650 mg PO Q6H PRN PRN Reason: Headache/Pain, Scale 1-10 Last Admin: 03/13/25 04:49 Dose: 650 mg Al Hydroxide/Mg Hydroxide (Magnesium Hydrox/Alum Hydrox 30 Ml Oral.Susp) 30 ml PO Q6H PRN PRN Reason: Heartburn/Nausea Amlodipine Besylate (Amlodipine Besylate 10 Mg Tablet) 10 mg PO BEDTIME [facility]IXIE; Protocol Last Admin: 03/14/25 20:44 Dose: 10 mg Chlorpromazine HCl (Chlorpromazine Hcl 100 Mg Tablet) 100 mg PO Q4H PRN PRN Reason: agitation Last Admin: 03/15/25 08:16 Dose: 100 mg Clotrimazole (Clotrimazole 1 % Cream 15 Gm Tube) 1 appl TOPICAL BID PRN; Protocol PRN Reason: rash Diazepam (Diazepam 5 Mg Tablet) 5 mg PO Q4H PRN PRN Reason: agitation Last Admin: 03/14/25 18:40 Dose: 5 mg Divalproex Sodium (Divalproex Sodium Er 500 Mg Tab.Er.24h) 2,000 mg PO BEDTIME DIXIE Last Admin: 03/14/25 20:45 Dose: 2,000 mg [place] Carbonate ([place] Carbonate Er 450 Mg Tablet.Er) 900 mg PO BID DIXIE Last Admin: 03/15/25 08:14 Dose: 900 mg Losartan Potassium (Losartan Potassium 25 Mg Tablet) 25 mg PO DAILY [facility]; Protocol Last Admin: 03/15/25 08:14 Dose: 25 mg Magnesium Hydroxide (Milk Of Magnesia 30 Ml Oral.Susp) 30 ml PO DAILY PRN PRN Reason: Constipation Last Admin: 03/10/25 10:27 Dose: 30 ml Nystatin (Nystatin Powder 15 Gm Bottle) 1 appl TOPICAL TID PRN; Protocol PRN Reason: rash Olanzapine (Olanzapine 10 Mg Tablet) 20 mg PO BEDTIME [facility]IXIE Last Admin: 03/14/25 20:44 Dose: 20 mg Olanzapine (Olanzapine 5 Mg Tablet) 5 mg PO Q4H PRN PRN Reason: agitation Last Admin: 03/13/25 21:00 Dose: 5 mg Propranolol HCl (Propranolol Hcl 10 Mg Tablet) 10 mg PO TID [facility]; Protocol Last Admin: 03/15/25 08:14 Dose: 10 mg Testosterone Cypionate (Testosterone Cypionate 200 Mg/1 Ml Vial) 100 mg IM Th [facility]IXIE Last Admin: 03/09/25 09:40 Dose: 100 mg Allergies Allergies Allergy/AdvReac Type Severity Reaction Status Date / Time naloxone Allergy Unknown Verified 03/01/25 12:51 Assessment & Plan Assessment & Plan (1) Bipolar disorder, current episode manic severe with psychotic features: Status: Acute Code(s): F31.2 - Bipolar disorder, current episode manic severe with psychotic features Plan per CARE team bruna tompkins with h/o bipolar disorder Dx was BIBA from [facility], where he had stripped naked, urinated on the floor, and was kneeling and praying. once in [facility] [place] he was behaving in an erratic manner, sometimes aggressive or unsafe (attempting elopement). he required IM medications on numerous occasions over several days while there. he was described by CARE team clinician as not oriented to person, place, or circumstance while in the ED. he believed he was in heaven. fecal smears were noted on his sheets. he was RIS and of labile affect. per collateral from pt's mother, pt had been adherent to medications until about 5 months ago. she reports that she noticed a change in him a couple of weeks ago. 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 she stated he was arrested for unknown reasons after leaving for the gym last . utox NEG (aside from benzos, which he was given in the ED). on interview with MD, pt is apparently quite sedated from thorazine given in the ED shortly prior to transfer. he indicates euthymic mood and denies SI/HI/AVH. groin rash noted. pt was started on lithium and zyprexa, which he has taken in the past successfully. offer lithium and zyprexa. thorazine and valium PRN agitation. DC ibuprofen and lisinopril due to restarting lithium. medical consult for HTN, groin rash. also elevated WBC, PMN predominant, unclear etiology. 03/04: disorganized. oriented to self. labile. presents with flight of ideas.walking around at times with eyes closed. incontinent of urine x2 this morning. medication compliant. continues on 1:1 safety checks. continue current tx plan. 03/05: In and out of room. disrobed x1. incontinent of urine x1. Showered. Moments of lucidity; pt was able to state name of hospital and date. He reports he wants to stay in the hospital for mental health treatment; pt signed CV; arriola warning given. pt stated, I want to stay here and get help. I don't remember my medications but my mother does . Continue current tx plan. 03/06: Active on unit. disrobed x1. has not been incontinent of urine so far today. More organized, however continues disorganized. Placed his hospital rocky under running water and wore it but changed with staff assistance. He reports feeling happy today but is unable to state reason. States he is disrobing to shower; educated he can't disrobe in front of others. denies any side effects from medications. T/W spoke to patients mother, Tory, with pt's consent. Pt's mother states she does not know his medication hx or his outpatient prescriber's name. Continue current tx plan. 03/07: Active on unit. did not disrobed or have incontinence today. disorganized. Patient thanked T/W for putting his dogs in the kennel and giving him a picture of an elephant; T/W informed pt neither of those were done by them; pt stated, well I remember that you did that . Continues to report feeling happy today because he's in the hospital. He feels the medications are great ; lithium level to be drawn on 03/09/25; pt aware. Continue current tx plan. 03/08: Patient notes that he feels great. He denies anxiety or depression. He denies SI/HI/AH/VH. He is religiously preoccupied he notes that he prays to Allah/God and sees Him in different form. Continue current regimen. 03/09: Active on unit. social with peers. labile. [place] level 0.29 on 03/09/25. medication compliant. Per nursing, slept 7 hours last night. [place] increased to 900mg PO BID. Start: Depakote ER 1500mg PO bedtime. 03/10: Active on unit. social with peers. medication compliant. labile. cheerful in the morning, became irritable in the afternoon. Patient stated, I feel great! I got everything I want in life right here! . denies SI/HI/VH/AH. denies any side effects from medications. per nursing, slept 6 hours last night. Continue current tx plan. 03/11/25: Slept for 4.5 hours, medication compliant except for night stand and other creams for his groin which is resolved. Good appetite. Continued to be on close observation. Pacing, happy, pressured speech, but pleasant and cooperative. It was sometimes he having tough time remove himself from the situation. He saw people around 1 of the peers, take time to redirect him away from that scene. Reports since his girlfriend passed 5 years ago, his mental health has been declined but he is working on getting better. No incontinence issues. Denies other safety concerns. 03/12/25: Slept for 4-5 hours last night. Reported that he does not not feel tired. Visible, social, and attended groups, pressure speech. He can be irritable but redirectable. He reported that he call mom, people in house very negative. He feel like he need to be here for his mental health and feel happy with where I am now and accepted help. Remain on close observation. Walking with bare foot which he reports is better for him and his shoes does not make her his fit comfortable. Denies depression/or anxiety, denies voices/hallucinations. 03/13: Active on unit. social with peers. attending groups. labile. Patient continues to report feeling great ; moments of agitation. more organized; placed on 5 minute checks. denies SI/HI/VH/AH. Valproic acid level 40.2 on 03/13/25. Labs to be redrawn tomorrow morning;pt aware. 03/14: Active on unit. social with peers. attending groups. Patient continues to report feeling great in the morning but becomes agitated as the day goes on. Patient reports he becomes agitated because he misses his dogs. Patient able to have an organized conversation. pt stated, I don't remember urinating in the room. I'm sorry if I did. Something must be working because I can sit down and have a conversation now . denies SI/HI/VH/AH. Depakote increased to 2000mg PO bedtime. Change to 15 minute safety checks. 03/15: Active on unit. social with peers. attending groups. Patient continues to report feeling great ; no agitation noted last evening. denies SI/HI/VH/AH. He reports sleeping well last night. Per nursing, slept 8 hours. Continue current tx plan. Patient educated on: diagnosis and medication risk/benefits Reason for continued inpatient stay Substantial Risk for: med/psych decompensation Time Spent With Patient Time: Total time managing care of this patient today _20___ minutes.
[2025-03-15 15:35] VITALS: BP 144/95; PULSE 101
[2025-03-15 20:25] VITALS: BP 142/79; PULSE 116; RESP 16; TEMP 36.9; O2SAT 96
[2025-03-16 07:00] VITALS: BMI 46.5
[2025-03-16 07:38] VITALS: BP 192/107; RESP 73; TEMP 36.4; O2SAT 99
[2025-03-16 08:38] VITALS: BP 180/90; PULSE 100
--- NOTE | 2025-03-16 08:53 | HO.PSYCHPN ---
Subjective Subjective Date of Service: 03/16/25 Reason For Visit: raoul Subjective Notes: 3 Day Interim History: Active on unit. social with peers. attending groups. signed 3 day notice, up on 03/21/25. Patient continues to report feeling great ; focused on discharge and seeing his dogs. denies SI/HI/VH/AH. Continue current tx plan.Valproic acid level to be drawn tomorrow. Medication Compliance: Yes Side effects from medications: No Attending Groups: Yes Mental Status Exam Mental Status Exam Narrative: Pt is alert and oriented; behavior is cooperative, friendly and calm; dressed in casual attire; mood is described as good ; eye contact appropriate; Speech is normal rate, volume and not pressured; thought process is organized; Thought content is on tx/discharge; denies SI/HI/VH/AH. Diagnostics Vital Signs (24Hr): Vital Signs - 24 hr 03/15/25 15:35 03/15/25 20:25 03/16/25 07:38 Temperature 98.5 F 97.5 F Pulse Rate 101 H 116 H Respiratory Rate 16 73 H Blood Pressure 144/95 H 142/79 H 192/107 H Pulse Oximetry 96 99 Oxygen Delivery Method Room Air Room Air 03/16/25 08:38 03/16/25 08:38 Temperature Pulse Rate 100 Respiratory Rate Blood Pressure 180/90 H 180/90 H Pulse Oximetry Oxygen Delivery Method BMI result Body Mass Index 46.4 Labs 03/09/25 07:55 03/14/25 07:29 Medications Medications Current Medications Acetaminophen (Acetaminophen 325 Mg Tablet) 650 mg PO Q6H PRN PRN Reason: Headache/Pain, Scale 1-10 Last Admin: 03/13/25 04:49 Dose: 650 mg Al Hydroxide/Mg Hydroxide (Magnesium Hydrox/Alum Hydrox 30 Ml Oral.Susp) 30 ml PO Q6H PRN PRN Reason: Heartburn/Nausea Amlodipine Besylate (Amlodipine Besylate 10 Mg Tablet) 10 mg PO BEDTIME [facility]; Protocol Last Admin: 03/15/25 21:11 Dose: 10 mg Chlorpromazine HCl (Chlorpromazine Hcl 100 Mg Tablet) 100 mg PO Q4H PRN PRN Reason: agitation Last Admin: 03/15/25 21:12 Dose: 100 mg Clotrimazole (Clotrimazole 1 % Cream 15 Gm Tube) 1 appl TOPICAL BID PRN; Protocol PRN Reason: rash Diazepam (Diazepam 5 Mg Tablet) 5 mg PO Q4H PRN PRN Reason: agitation Last Admin: 03/15/25 17:23 Dose: 5 mg Divalproex Sodium (Divalproex Sodium Er 500 Mg Tab.Er.24h) 2,000 mg PO BEDTIME DIXIE Last Admin: 03/15/25 21:12 Dose: 2,000 mg [place] Carbonate ([place] Carbonate Er 450 Mg Tablet.Er) 900 mg PO BID DIXIE Last Admin: 03/16/25 08:39 Dose: 900 mg Losartan Potassium (Losartan Potassium 25 Mg Tablet) 25 mg PO DAILY DIXIE; Protocol Last Admin: 03/16/25 08:38 Dose: 25 mg Magnesium Hydroxide (Milk Of Magnesia 30 Ml Oral.Susp) 30 ml PO DAILY PRN PRN Reason: Constipation Last Admin: 03/10/25 10:27 Dose: 30 ml Nystatin (Nystatin Powder 15 Gm Bottle) 1 appl TOPICAL TID PRN; Protocol PRN Reason: rash Olanzapine (Olanzapine 10 Mg Tablet) 20 mg PO BEDTIME DIXIE Last Admin: 03/15/25 21:12 Dose: 20 mg Olanzapine (Olanzapine 5 Mg Tablet) 5 mg PO Q4H PRN PRN Reason: agitation Last Admin: 03/13/25 21:00 Dose: 5 mg Propranolol HCl (Propranolol Hcl 10 Mg Tablet) 10 mg PO TID DIXIE; Protocol Last Admin: 03/16/25 08:38 Dose: 10 mg Testosterone Cypionate (Testosterone Cypionate 200 Mg/1 Ml Vial) 100 mg IM Th [facility] Last Admin: 03/16/25 08:35 Dose: 100 mg Allergies Allergies Allergy/AdvReac Type Severity Reaction Status Date / Time naloxone Allergy Unknown Verified 03/01/25 12:51 Assessment & Plan Assessment & Plan (1) Bipolar disorder, current episode manic severe with psychotic features: Status: Acute Code(s): F31.2 - Bipolar disorder, current episode manic severe with psychotic features Plan per CARE team bruna tompkins with h/o bipolar disorder Dx was BIBA from [facility], where he had stripped naked, urinated on the floor, and was kneeling and praying. once in [facility] ED he was behaving in an erratic manner, sometimes aggressive or unsafe (attempting elopement). he required IM medications on numerous occasions over several days while there. he was described by CARE team clinician as not oriented to person, place, or circumstance while in the ED. he believed he was in heaven. fecal smears were noted on his sheets. he was RIS and of labile affect. per collateral from pt's mother, pt had been adherent to medications until about 5 months ago. she reports that she noticed a change in him a couple of weeks ago. 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 she stated he was arrested for unknown reasons after leaving for the gym last . utox NEG (aside from benzos, which he was given in the ED). on interview with MD, pt is apparently quite sedated from thorazine given in the ED shortly prior to transfer. he indicates euthymic mood and denies SI/HI/AVH. groin rash noted. pt was started on lithium and zyprexa, which he has taken in the past successfully. offer lithium and zyprexa. thorazine and valium PRN agitation. DC ibuprofen and lisinopril due to restarting lithium. medical consult for HTN, groin rash. also elevated WBC, PMN predominant, unclear etiology. 03/04: disorganized. oriented to self. labile. presents with flight of ideas.walking around at times with eyes closed. incontinent of urine x2 this morning. medication compliant. continues on 1:1 safety checks. continue current tx plan. 03/05: In and out of room. disrobed x1. incontinent of urine x1. Showered. Moments of lucidity; pt was able to state name of hospital and date. He reports he wants to stay in the hospital for mental health treatment; pt signed CV; arriola warning given. pt stated, I want to stay here and get help. I don't remember my medications but my mother does . Continue current tx plan. 03/06: Active on unit. disrobed x1. has not been incontinent of urine so far today. More organized, however continues disorganized. Placed his hospital rocky under running water and wore it but changed with staff assistance. He reports feeling happy today but is unable to state reason. States he is disrobing to shower; educated he can't disrobe in front of others. denies any side effects from medications. T/W spoke to patients mother, Tory, with pt's consent. Pt's mother states she does not know his medication hx or his outpatient prescriber's name. Continue current tx plan. 03/07: Active on unit. did not disrobed or have incontinence today. disorganized. Patient thanked T/W for putting his dogs in the kennel and giving him a picture of an elephant; T/W informed pt neither of those were done by them; pt stated, well I remember that you did that . Continues to report feeling happy today because he's in the hospital. He feels the medications are great ; lithium level to be drawn on 03/09/25; pt aware. Continue current tx plan. 03/08: Patient notes that he feels great. He denies anxiety or depression. He denies SI/HI/AH/VH. He is religiously preoccupied he notes that he prays to Allah/God and sees Him in different form. Continue current regimen. 03/09: Active on unit. social with peers. labile. [place] level 0.29 on 03/09/25. medication compliant. Per nursing, slept 7 hours last night. [place] increased to 900mg PO BID. Start: Depakote ER 1500mg PO bedtime. 03/10: Active on unit. social with peers. medication compliant. labile. cheerful in the morning, became irritable in the afternoon. Patient stated, I feel great! I got everything I want in life right here! . denies SI/HI/VH/AH. denies any side effects from medications. per nursing, slept 6 hours last night. Continue current tx plan. 03/11/25: Slept for 4.5 hours, medication compliant except for night stand and other creams for his groin which is resolved. Good appetite. Continued to be on close observation. Pacing, happy, pressured speech, but pleasant and cooperative. It was sometimes he having tough time remove himself from the situation. He saw people around 1 of the peers, take time to redirect him away from that scene. Reports since his girlfriend passed 5 years ago, his mental health has been declined but he is working on getting better. No incontinence issues. Denies other safety concerns. 03/12/25: Slept for 4-5 hours last night. Reported that he does not not feel tired. Visible, social, and attended groups, pressure speech. He can be irritable but redirectable. He reported that he call mom, people in house very negative. He feel like he need to be here for his mental health and feel happy with where I am now and accepted help. Remain on close observation. Walking with bare foot which he reports is better for him and his shoes does not make her his fit comfortable. Denies depression/or anxiety, denies voices/hallucinations. 03/13: Active on unit. social with peers. attending groups. labile. Patient continues to report feeling great ; moments of agitation. more organized; placed on 5 minute checks. denies SI/HI/VH/AH. Valproic acid level 40.2 on 03/13/25. Labs to be redrawn tomorrow morning;pt aware. 03/14: Active on unit. social with peers. attending groups. Patient continues to report feeling great in the morning but becomes agitated as the day goes on. Patient reports he becomes agitated because he misses his dogs. Patient able to have an organized conversation. pt stated, I don't remember urinating in the room. I'm sorry if I did. Something must be working because I can sit down and have a conversation now . denies SI/HI/VH/AH. Depakote increased to 2000mg PO bedtime. Change to 15 minute safety checks. 03/15: Active on unit. social with peers. attending groups. Patient continues to report feeling great ; no agitation noted last evening. denies SI/HI/VH/AH. He reports sleeping well last night. Per nursing, slept 8 hours. Continue current tx plan. 03/16:Active on unit. social with peers. attending groups. signed 3 day notice, up on 03/21/25. Patient continues to report feeling great ; focused on discharge and seeing his dogs. denies SI/HI/VH/AH. Continue current tx plan.Valproic acid level to be drawn tomorrow Patient educated on: diagnosis, medication risk/benefits and therapeutic strategies Reason for continued inpatient stay Substantial Risk for: med/psych decompensation Time Spent With Patient Time: Total time managing care of this patient today _20___ minutes.
[2025-03-16 14:35] VITALS: BP 139/99; PULSE 100
[2025-03-16 20:00] VITALS: BP 139/74; PULSE 106; RESP 18; TEMP 36.7; O2SAT 96
[2025-03-17 08:41] VITALS: BP 155/90; PULSE 110; RESP 16; TEMP 36.6; O2SAT 98
[2025-03-17 09:06] LABS: Ammonia 22 umol/L (13-55)
[2025-03-17 09:15] LABS: Alanine Aminotransferase 56 U/L (0-40); Albumin Level 3.6 g/dL (3.5-5.0); Alkaline Phosphatase 85 U/L (39-117); Aspartate Amino Transferase 26 U/L (5-37); Total Protein 6.3 g/dL (6.5-8.0)
--- NOTE | 2025-03-17 09:20 | HO.PSYCHPN ---
Subjective Subjective Date of Service: 03/17/25 Reason For Visit: raoul Subjective Notes: 3 Day Interim History: Active on unit. social with peers. attending groups. showered. 3 day notice up on 03/21/25. Patient reports feeling good ; pt stated, I know I need the medicine. I feel better on it. I feel ready to go home and get back to my schedule . denies SI/HI/VH/AH. Valproic acid level 55.6 on 03/17/25. Labs to be drawn on 03/19/25. Medication Compliance: Yes Side effects from medications: No Attending Groups: Yes Mental Status Exam Mental Status Exam Narrative: Pt is alert and oriented; behavior is cooperative, friendly and calm; dressed in casual attire; mood is described as good ; eye contact appropriate; Speech is normal rate, volume and not pressured; thought process is organized; Thought content is on discharge; denies SI/HI/VH/AH. Diagnostics Vital Signs (24Hr): Vital Signs - 24 hr 03/16/25 14:35 03/16/25 20:00 03/17/25 08:41 Temperature 98.1 F 97.9 F Pulse Rate 100 106 H 110 H Respiratory Rate 18 16 Blood Pressure 139/99 H 139/74 155/90 H Pulse Oximetry 96 98 Oxygen Delivery Method Room Air Room Air BMI result Body Mass Index 46.5 Labs 03/09/25 07:55 03/14/25 07:29 Labs: Laboratory Results - last 48 hr 03/17/25 08:44 Total Bilirubin 0.4 Direct Bilirubin 0.1 AST 26 ALT 56 H Alkaline Phosphatase 85 Ammonia 22 Total Protein 6.3 L Albumin 3.6 Valproic Acid 55.6 Medications Medications Current Medications Acetaminophen (Acetaminophen 325 Mg Tablet) 650 mg PO Q6H PRN PRN Reason: Headache/Pain, Scale 1-10 Last Admin: 03/17/25 08:50 Dose: 650 mg Al Hydroxide/Mg Hydroxide (Magnesium Hydrox/Alum Hydrox 30 Ml Oral.Susp) 30 ml PO Q6H PRN PRN Reason: Heartburn/Nausea Amlodipine Besylate (Amlodipine Besylate 10 Mg Tablet) 10 mg PO BEDTIME DIXIE; Protocol Last Admin: 03/16/25 20:55 Dose: 10 mg Chlorpromazine HCl (Chlorpromazine Hcl 100 Mg Tablet) 100 mg PO Q4H PRN PRN Reason: agitation Last Admin: 03/16/25 20:55 Dose: 100 mg Clotrimazole (Clotrimazole 1 % Cream 15 Gm Tube) 1 appl TOPICAL BID PRN; Protocol PRN Reason: rash Diazepam (Diazepam 5 Mg Tablet) 5 mg PO Q4H PRN PRN Reason: agitation Last Admin: 03/17/25 08:49 Dose: 5 mg Divalproex Sodium (Divalproex Sodium Er 500 Mg Tab.Er.24h) 2,000 mg PO BEDTIME DIXIE Last Admin: 03/16/25 20:55 Dose: 2,000 mg [place] Carbonate ([place] Carbonate Er 450 Mg Tablet.Er) 900 mg PO BID [facility] Last Admin: 03/17/25 08:50 Dose: 900 mg Losartan Potassium (Losartan Potassium 25 Mg Tablet) 25 mg PO DAILY DIXIE; Protocol Last Admin: 03/17/25 08:49 Dose: 25 mg Magnesium Hydroxide (Milk Of Magnesia 30 Ml Oral.Susp) 30 ml PO DAILY PRN PRN Reason: Constipation Last Admin: 03/10/25 10:27 Dose: 30 ml Nystatin (Nystatin Powder 15 Gm Bottle) 1 appl TOPICAL TID PRN; Protocol PRN Reason: rash Olanzapine (Olanzapine 10 Mg Tablet) 20 mg PO BEDTIME DIXIE Last Admin: 03/16/25 20:55 Dose: 20 mg Olanzapine (Olanzapine 5 Mg Tablet) 5 mg PO Q4H PRN PRN Reason: agitation Last Admin: 03/13/25 21:00 Dose: 5 mg Propranolol HCl (Propranolol Hcl 10 Mg Tablet) 10 mg PO TID DIXIE; Protocol Last Admin: 03/17/25 08:49 Dose: 10 mg Testosterone Cypionate (Testosterone Cypionate 200 Mg/1 Ml Vial) 100 mg IM Th DIXIE Last Admin: 03/16/25 08:35 Dose: 100 mg Allergies Allergies Allergy/AdvReac Type Severity Reaction Status Date / Time naloxone Allergy Unknown Verified 03/01/25 12:51 Assessment & Plan Assessment & Plan (1) Bipolar disorder, current episode manic severe with psychotic features: Status: Acute Code(s): F31.2 - Bipolar disorder, current episode manic severe with psychotic features Plan per CARE team bruna tompkins with h/o bipolar disorder Dx was BIBA from [facility], where he had stripped naked, urinated on the floor, and was kneeling and praying. once in [facility] ED he was behaving in an erratic manner, sometimes aggressive or unsafe (attempting elopement). he required IM medications on numerous occasions over several days while there. he was described by CARE team clinician as not oriented to person, place, or circumstance while in the ED. he believed he was in heaven. fecal smears were noted on his sheets. he was RIS and of labile affect. per collateral from pt's mother, pt had been adherent to medications until about 5 months ago. she reports that she noticed a change in him a couple of weeks ago. 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 she stated he was arrested for unknown reasons after leaving for the gym last . utox NEG (aside from benzos, which he was given in the ED). on interview with MD, pt is apparently quite sedated from thorazine given in the ED shortly prior to transfer. he indicates euthymic mood and denies SI/HI/AVH. groin rash noted. pt was started on lithium and zyprexa, which he has taken in the past successfully. offer lithium and zyprexa. thorazine and valium PRN agitation. DC ibuprofen and lisinopril due to restarting lithium. medical consult for HTN, groin rash. also elevated WBC, PMN predominant, unclear etiology. 03/04: disorganized. oriented to self. labile. presents with flight of ideas.walking around at times with eyes closed. incontinent of urine x2 this morning. medication compliant. continues on 1:1 safety checks. continue current tx plan. 03/05: In and out of room. disrobed x1. incontinent of urine x1. Showered. Moments of lucidity; pt was able to state name of hospital and date. He reports he wants to stay in the hospital for mental health treatment; pt signed CV; arriola warning given. pt stated, I want to stay here and get help. I don't remember my medications but my mother does . Continue current tx plan. 03/06: Active on unit. disrobed x1. has not been incontinent of urine so far today. More organized, however continues disorganized. Placed his hospital rocky under running water and wore it but changed with staff assistance. He reports feeling happy today but is unable to state reason. States he is disrobing to shower; educated he can't disrobe in front of others. denies any side effects from medications. T/W spoke to patients mother, Tory, with pt's consent. Pt's mother states she does not know his medication hx or his outpatient prescriber's name. Continue current tx plan. 03/07: Active on unit. did not disrobed or have incontinence today. disorganized. Patient thanked T/W for putting his dogs in the kennel and giving him a picture of an elephant; T/W informed pt neither of those were done by them; pt stated, well I remember that you did that . Continues to report feeling happy today because he's in the hospital. He feels the medications are great ; lithium level to be drawn on 03/09/25; pt aware. Continue current tx plan. 03/08: Patient notes that he feels great. He denies anxiety or depression. He denies SI/HI/AH/VH. He is religiously preoccupied he notes that he prays to Allah/God and sees Him in different form. Continue current regimen. 03/09: Active on unit. social with peers. labile. [place] level 0.29 on 03/09/25. medication compliant. Per nursing, slept 7 hours last night. [place] increased to 900mg PO BID. Start: Depakote ER 1500mg PO bedtime. 03/10: Active on unit. social with peers. medication compliant. labile. cheerful in the morning, became irritable in the afternoon. Patient stated, I feel great! I got everything I want in life right here! . denies SI/HI/VH/AH. denies any side effects from medications. per nursing, slept 6 hours last night. Continue current tx plan. 03/11/25: Slept for 4.5 hours, medication compliant except for night stand and other creams for his groin which is resolved. Good appetite. Continued to be on close observation. Pacing, happy, pressured speech, but pleasant and cooperative. It was sometimes he having tough time remove himself from the situation. He saw people around 1 of the peers, take time to redirect him away from that scene. Reports since his girlfriend passed 5 years ago, his mental health has been declined but he is working on getting better. No incontinence issues. Denies other safety concerns. 03/12/25: Slept for 4-5 hours last night. Reported that he does not not feel tired. Visible, social, and attended groups, pressure speech. He can be irritable but redirectable. He reported that he call mom, people in house very negative. He feel like he need to be here for his mental health and feel happy with where I am now and accepted help. Remain on close observation. Walking with bare foot which he reports is better for him and his shoes does not make her his fit comfortable. Denies depression/or anxiety, denies voices/hallucinations. 03/13: Active on unit. social with peers. attending groups. labile. Patient continues to report feeling great ; moments of agitation. more organized; placed on 5 minute checks. denies SI/HI/VH/AH. Valproic acid level 40.2 on 03/13/25. Labs to be redrawn tomorrow morning;pt aware. 03/14: Active on unit. social with peers. attending groups. Patient continues to report feeling great in the morning but becomes agitated as the day goes on. Patient reports he becomes agitated because he misses his dogs. Patient able to have an organized conversation. pt stated, I don't remember urinating in the room. I'm sorry if I did. Something must be working because I can sit down and have a conversation now . denies SI/HI/VH/AH. Depakote increased to 2000mg PO bedtime. Change to 15 minute safety checks. 03/15: Active on unit. social with peers. attending groups. Patient continues to report feeling great ; no agitation noted last evening. denies SI/HI/VH/AH. He reports sleeping well last night. Per nursing, slept 8 hours. Continue current tx plan. 03/16:Active on unit. social with peers. attending groups. signed 3 day notice, up on 03/21/25. Patient continues to report feeling great ; focused on discharge and seeing his dogs. denies SI/HI/VH/AH. Continue current tx plan.Valproic acid level to be drawn tomorrow 03/17: Active on unit. social with peers. attending groups. showered. 3 day notice up on 03/21/25. Patient reports feeling good ; pt stated, I know I need the medicine. I feel better on it. I feel ready to go home and get back to my schedule . denies SI/HI/VH/AH. Valproic acid level 55.6 on 03/17/25. Labs to be drawn on 03/19/25. Patient educated on: diagnosis and medication risk/benefits Reason for continued inpatient stay Substantial Risk for: med/psych decompensation Time Spent With Patient Time: Total time managing care of this patient today _20___ minutes.
[2025-03-17 14:24] LABS: Anion Gap 11 (12-20); Blood Urea Nitrogen 8 mg/dL (9-16); Calcium 9.2 mg/dL (8.4-10.2); Carbon Dioxide 31 mmol/L (22-29); Chloride 103 mmol/L (96-108); Creatinine Clr Calc Pharmacy 223.4; Estimated Glomerular Filt Rate > 60; Potassium 3.6 mmol/L (3.3-5.1); Sodium 141 mmol/L (135-145)
[2025-03-17 14:53] VITALS: BP 177/105; PULSE 108; TEMP 36.9; O2SAT 99
--- NOTE | 2025-03-17 15:21 | PC.ADMIT ---
03/17/25 pt had bp of 177/105 hr 108, propanolol given Valerie White notified
[2025-03-17 17:56] LABS: Total Protein Urine Random < 7 mg/dL (<12)
[2025-03-17 20:24] VITALS: BP 171/104; PULSE 107
[2025-03-18] VITALS (7 sets, daily range): BP systolic 108–175; BP diastolic 85–103; PULSE 97–120; RESP 16–18; TEMP 36.4–36.8; O2SAT 99–100
--- NOTE | 2025-03-18 09:28 | P.PNPSI_ITS ---
Subjective Subjective Date of Service: 03/18/25 Reason For Visit: raoul Subjective Notes: Conditional Voluntary and 3 Day Interim History: Patient was seen and discussed in rounds today. Records and plans were reviewed. He has been stable, engaged. No behavioral problems. He is eating and sleeping adequately. He had some issues with his medication regimens which we sat down and reviewed carefully and decided to discontinue Tylenol and put in ibuprofen 600 mg t.i.d. p.r.n. which he has used more effectively. Valium was discontinued and started on Seroquel 100 mg b.i.d. which he has done better on before at home. Also the Thorazine has been too sedating so I will discontinue that and put in trazodone 100 mg nightly. Side effects including priapism discussed and he was aware of that. No SI. No other changes were made Review of Systems Review of Systems Leg and hand pain from previous accident. Yes all other systems are reviewed and are negative Mental Status Exam Mental Status Exam Narrative: In today's visit he is alert, oriented and pleasant. Normal speech. Good eye contact. Affect is appropriate and varied. No acute signs of psychosis. Cognitively is intact. Able to move all limbs. No gait abnormalities. Judgment is intact Diagnostics Vital Signs (24Hr): Vital Signs - 24 hr 03/17/25 14:53 03/17/25 20:24 03/18/25 07:10 Temperature 98.4 F 97.6 F Pulse Rate 108 H 107 H 110 H Respiratory Rate 18 Blood Pressure 177/105 H 171/104 H 108/103 H Pulse Oximetry 99 99 Oxygen Delivery Method Room Air Room Air BMI result Body Mass Index 46.5 Labs 03/09/25 07:55 03/17/25 14:00 Labs: Laboratory Results - last 48 hr 03/17/25 03/17/25 03/17/25 08:44 14:00 17:15 Sodium 141 Potassium 3.6 Chloride 103 Carbon Dioxide 31 H Anion Gap 11 L BUN 8 L Creatinine 0.71 Estim Creat Clear Calc 223.4 Estimated GFR > 60 Random Glucose 147 H Calcium 9.2 Total Bilirubin 0.4 Direct Bilirubin 0.1 AST 26 ALT 56 H Alkaline Phosphatase 85 Ammonia 22 Total Protein 6.3 L Albumin 3.6 U Random Total Protein < 7 Urine Creatinine 33.85 Protein/Creatinin Ratio TNP Valproic Acid 55.6 Medications Medications Current Medications Al Hydroxide/Mg Hydroxide (Magnesium Hydrox/Alum Hydrox 30 Ml Oral.Susp) 30 ml PO Q6H PRN PRN Reason: Heartburn/Nausea Amlodipine Besylate (Amlodipine Besylate 10 Mg Tablet) 10 mg PO BEDTIME DIXIE; Protocol Last Admin: 03/17/25 20:57 Dose: 10 mg Divalproex Sodium (Divalproex Sodium Er 500 Mg Tab.Er.24h) 2,000 mg PO BEDTIME DIXIE Last Admin: 03/17/25 20:57 Dose: 2,000 mg Ibuprofen (Ibuprofen 600 Mg Tablet) 600 mg PO TIDWM PRN PRN Reason: Pain, Moderate(Pain Scale 4-6) [place] Carbonate ([place] Carbonate Er 450 Mg Tablet.Er) 900 mg PO BID DIXIE Last Admin: 03/17/25 20:57 Dose: 900 mg Losartan Potassium (Losartan Potassium 50 Mg Tablet) 100 mg PO DAILY DIXIE; Protocol Magnesium Hydroxide (Milk Of Magnesia 30 Ml Oral.Susp) 30 ml PO DAILY PRN PRN Reason: Constipation Last Admin: 03/10/25 10:27 Dose: 30 ml Olanzapine (Olanzapine 10 Mg Tablet) 20 mg PO BEDTIME DIXIE Last Admin: 03/17/25 20:58 Dose: 20 mg Propranolol HCl (Propranolol Hcl 10 Mg Tablet) 10 mg PO TID DIXIE; Protocol Last Admin: 03/17/25 20:57 Dose: 10 mg Quetiapine Fumarate (Quetiapine Fumarate 100 Mg Tablet) 100 mg PO BID [facility] Testosterone Cypionate (Testosterone Cypionate 200 Mg/1 Ml Vial) 100 mg IM Th [facility] Last Admin: 03/16/25 08:35 Dose: 100 mg Trazodone HCl (Trazodone Hcl 100 Mg Tablet) 100 mg PO BEDTIME [facility] Allergies Allergies Allergy/AdvReac Type Severity Reaction Status Date / Time naloxone Allergy Unknown Verified 03/01/25 12:51 Assessment & Plan Assessment & Plan (1) Bipolar disorder, current episode manic severe with psychotic features: Status: Acute Code(s): F31.2 - Bipolar disorder, current episode manic severe with psychotic features Plan per CARE team bruna tompkins with h/o bipolar disorder Dx was BIBA from [facility], where he had stripped naked, urinated on the floor, and was kneeling and praying. once in [facility] ED he was behaving in an erratic manner, sometimes aggressive or unsafe (attempting elopement). he required IM medications on numerous occasions over several days while there. he was described by CARE team clinician as not oriented to person, place, or circumstance while in the ED. he believed he was in heaven. fecal smears were noted on his sheets. he was RIS and of labile affect. per collateral from pt's mother, pt had been adherent to medications until about 5 months ago. she reports that she noticed a change in him a couple of weeks ago. 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 she stated he was arrested for unknown reasons after leaving for the gym last . utox NEG (aside from benzos, which he was given in the ED). on interview with MD, pt is apparently quite sedated from thorazine given in the ED shortly prior to transfer. he indicates euthymic mood and denies SI/HI/AVH. groin rash noted. pt was started on lithium and zyprexa, which he has taken in the past successfully. offer lithium and zyprexa. thorazine and valium PRN agitation. DC ibuprofen and lisinopril due to restarting lithium. medical consult for HTN, groin rash. also elevated WBC, PMN predominant, unclear etiology. 03/04: disorganized. oriented to self. labile. presents with flight of ideas.walking around at times with eyes closed. incontinent of urine x2 this morning. medication compliant. continues on 1:1 safety checks. continue current tx plan. 03/05: In and out of room. disrobed x1. incontinent of urine x1. Showered. Moments of lucidity; pt was able to state name of hospital and date. He reports he wants to stay in the hospital for mental health treatment; pt signed CV; arriola warning given. pt stated, I want to stay here and get help. I don't remember my medications but my mother does . Continue current tx plan. 03/06: Active on unit. disrobed x1. has not been incontinent of urine so far today. More organized, however continues disorganized. Placed his hospital rocky under running water and wore it but changed with staff assistance. He reports feeling happy today but is unable to state reason. States he is disrobing to shower; educated he can't disrobe in front of others. denies any side effects from medications. T/W spoke to patients mother, Tory, with pt's consent. Pt's mother states she does not know his medication hx or his outpatient prescriber's name. Continue current tx plan. 03/07: Active on unit. did not disrobed or have incontinence today. disorganized. Patient thanked T/W for putting his dogs in the kennel and giving him a picture of an elephant; T/W informed pt neither of those were done by them; pt stated, well I remember that you did that . Continues to report feeling happy today because he's in the hospital. He feels the medications are great ; lithium level to be drawn on 03/09/25; pt aware. Continue current tx plan. 03/08: Patient notes that he feels great. He denies anxiety or depression. He denies SI/HI/AH/VH. He is religiously preoccupied he notes that he prays to Allah/God and sees Him in different form. Continue current regimen. 03/09: Active on unit. social with peers. labile. [place] level 0.29 on 03/09/25. medication compliant. Per nursing, slept 7 hours last night. [place] increased to 900mg PO BID. Start: Depakote ER 1500mg PO bedtime. 03/10: Active on unit. social with peers. medication compliant. labile. cheerful in the morning, became irritable in the afternoon. Patient stated, I feel great! I got everything I want in life right here! . denies SI/HI/VH/AH. denies any side effects from medications. per nursing, slept 6 hours last night. Continue current tx plan. 03/11/25: Slept for 4.5 hours, medication compliant except for night stand and other creams for his groin which is resolved. Good appetite. Continued to be on close observation. Pacing, happy, pressured speech, but pleasant and cooperative. It was sometimes he having tough time remove himself from the situation. He saw people around 1 of the peers, take time to redirect him away from that scene. Reports since his girlfriend passed 5 years ago, his mental health has been declined but he is working on getting better. No incontinence issues. Denies other safety concerns. 03/12/25: Slept for 4-5 hours last night. Reported that he does not not feel tired. Visible, social, and attended groups, pressure speech. He can be irritable but redirectable. He reported that he call mom, people in house very negative. He feel like he need to be here for his mental health and feel happy with where I am now and accepted help. Remain on close observation. Walking with bare foot which he reports is better for him and his shoes does not make her his fit comfortable. Denies depression/or anxiety, denies voices/hallucinations. 03/13: Active on unit. social with peers. attending groups. labile. Patient continues to report feeling great ; moments of agitation. more organized; placed on 5 minute checks. denies SI/HI/VH/AH. Valproic acid level 40.2 on 03/13/25. Labs to be redrawn tomorrow morning;pt aware. 03/14: Active on unit. social with peers. attending groups. Patient continues to report feeling great in the morning but becomes agitated as the day goes on. Patient reports he becomes agitated because he misses his dogs. Patient able to have an organized conversation. pt stated, I don't remember urinating in the room. I'm sorry if I did. Something must be working because I can sit down and have a conversation now . denies SI/HI/VH/AH. Depakote increased to 2000mg PO bedtime. Change to 15 minute safety checks. 03/15: Active on unit. social with peers. attending groups. Patient continues to report feeling great ; no agitation noted last evening. denies SI/HI/VH/AH. He reports sleeping well last night. Per nursing, slept 8 hours. Continue current tx plan. 03/16:Active on unit. social with peers. attending groups. signed 3 day notice, up on 03/21/25. Patient continues to report feeling great ; focused on discharge and seeing his dogs. denies SI/HI/VH/AH. Continue current tx plan.Valproic acid level to be drawn tomorrow 03/17: Active on unit. social with peers. attending groups. showered. 3 day notice up on 03/21/25. Patient reports feeling good ; pt stated, I know I need the medicine. I feel better on it. I feel ready to go home and get back to my schedule . denies SI/HI/VH/AH. Valproic acid level 55.6 on 03/17/25. Labs to be drawn on 03/19/25. 03/18: Continue current regimen and plans with above-mentioned changes Patient educated on: diagnosis and medication risk/benefits Reason for continued inpatient stay Substantial Risk for: med/psych decompensation Time Spent With Patient Time: Total time managing care of this patient today ____ minutes.
[2025-03-19 07:05] VITALS: BP 154/87; PULSE 106; RESP 16; TEMP 36.3; O2SAT 98
[2025-03-19 08:03] LABS: Ammonia 27 umol/L (13-55)
[2025-03-19 08:08] LABS: Lithium 0.35 mmol/L (0.60-1.20)
[2025-03-19 08:10] LABS: Alanine Aminotransferase 50 U/L (0-40); Albumin Level 3.7 g/dL (3.5-5.0); Alkaline Phosphatase 83 U/L (39-117); Anion Gap 12 (12-20); Aspartate Amino Transferase 26 U/L (5-37); Blood Urea Nitrogen 7 mg/dL (9-16); Carbon Dioxide 31 mmol/L (22-29); Chloride 103 mmol/L (96-108); Creatinine Clr Calc Pharmacy 206.0; Estimated Glomerular Filt Rate > 60; Potassium 3.6 mmol/L (3.3-5.1); Sodium 142 mmol/L (135-145); Total Protein 6.2 g/dL (6.5-8.0)
--- NOTE | 2025-03-19 08:42 | HO.PSYCHPN ---
Subjective Subjective Date of Service: 03/19/25 Reason For Visit: raoul Subjective Notes: Conditional Voluntary and 3 Day Interim History: Patient was seen and discussed in rounds today. Records and plans were reviewed. He has been stable, engaged. We discussed the specific changes that I made yesterday and he states that he has very happy with them with control of his anxiety, pain and sleep. No complaints or side effects. Questions about his 3 day was discussed. No SI. No changes were made today Review of Systems Review of Systems Yes all other systems are reviewed and are negative Mental Status Exam Mental Status Exam Narrative: In today's visit he is alert, oriented and pleasant. Normal speech. Good eye contact. Affect is appropriate and varied. No acute signs of psychosis. Cognitively is intact. Able to move all limbs. No gait abnormalities. Judgment is intact Diagnostics Vital Signs (24Hr): Vital Signs - 24 hr 03/18/25 09:30 03/18/25 09:32 03/18/25 14:54 Temperature Pulse Rate 109 H 107 H Respiratory Rate Blood Pressure 175/94 H 175/94 H 171/103 H Pulse Oximetry Oxygen Delivery Method 03/18/25 20:00 03/18/25 21:23 03/18/25 21:25 Temperature 98.2 F Pulse Rate 97 120 H Respiratory Rate 16 Blood Pressure 150/94 H 138/85 138/85 Pulse Oximetry 100 Oxygen Delivery Method Room Air 03/19/25 07:05 Temperature 97.3 F Pulse Rate 106 H Respiratory Rate 16 Blood Pressure 154/87 H Pulse Oximetry 98 Oxygen Delivery Method Room Air BMI result Body Mass Index 46.5 Labs 03/09/25 07:55 03/19/25 07:30 Labs: Laboratory Results - last 48 hr 03/17/25 03/17/25 03/17/25 08:44 14:00 17:15 Sodium 141 Potassium 3.6 Chloride 103 Carbon Dioxide 31 H Anion Gap 11 L BUN 8 L Creatinine 0.71 Estim Creat Clear Calc 223.4 Estimated GFR > 60 Random Glucose 147 H Calcium 9.2 Total Bilirubin 0.4 Direct Bilirubin 0.1 AST 26 ALT 56 H Alkaline Phosphatase 85 Ammonia 22 Total Protein 6.3 L Albumin 3.6 U Random Total Protein < 7 Urine Creatinine 33.85 Protein/Creatinin Ratio TNP Valproic Acid 55.6 [place] 03/19/25 07:30 Sodium 142 Potassium 3.6 Chloride 103 Carbon Dioxide 31 H Anion Gap 12 BUN 7 L Creatinine 0.77 Estim Creat Clear Calc 206.0 Estimated GFR > 60 Random Glucose Calcium Total Bilirubin 0.3 Direct Bilirubin 0.1 AST 26 ALT 50 H Alkaline Phosphatase 83 Ammonia 27 Total Protein 6.2 L Albumin 3.7 U Random Total Protein Urine Creatinine Protein/Creatinin Ratio Valproic Acid 47.0 L [place] 0.35 L Medications Medications Current Medications Al Hydroxide/Mg Hydroxide (Magnesium Hydrox/Alum Hydrox 30 Ml Oral.Susp) 30 ml PO Q6H PRN PRN Reason: Heartburn/Nausea Amlodipine Besylate (Amlodipine Besylate 10 Mg Tablet) 10 mg PO BEDTIME DIXIE; Protocol Last Admin: 03/18/25 21:25 Dose: 10 mg Divalproex Sodium (Divalproex Sodium Er 500 Mg Tab.Er.24h) 2,000 mg PO BEDTIME DIXIE Last Admin: 03/18/25 21:20 Dose: 2,000 mg Hydroxyzine HCl (Hydroxyzine Hcl 50 Mg Tablet) 50 mg PO Q8H PRN PRN Reason: anxiety Last Admin: 03/18/25 13:53 Dose: 50 mg Ibuprofen (Ibuprofen 600 Mg Tablet) 600 mg PO TID PRN PRN Reason: Pain, Moderate(Pain Scale 4-6) Last Admin: 03/18/25 21:23 Dose: 600 mg [place] Carbonate ([place] Carbonate Er 450 Mg Tablet.Er) 900 mg PO BID DIXIE Last Admin: 03/18/25 21:24 Dose: 900 mg Losartan Potassium (Losartan Potassium 50 Mg Tablet) 100 mg PO DAILY DIXIE; Protocol Last Admin: 03/18/25 09:30 Dose: 100 mg Magnesium Hydroxide (Milk Of Magnesia 30 Ml Oral.Susp) 30 ml PO DAILY PRN PRN Reason: Constipation Last Admin: 03/10/25 10:27 Dose: 30 ml Olanzapine (Olanzapine 10 Mg Tablet) 20 mg PO BEDTIME DIXIE Last Admin: 03/18/25 21:21 Dose: 20 mg Propranolol HCl (Propranolol Hcl 10 Mg Tablet) 10 mg PO TID DIXIE; Protocol Last Admin: 03/18/25 21:23 Dose: 10 mg Quetiapine Fumarate (Quetiapine Fumarate 100 Mg Tablet) 100 mg PO BID DIXIE Last Admin: 03/18/25 21:25 Dose: 100 mg Testosterone Cypionate (Testosterone Cypionate 200 Mg/1 Ml Vial) 100 mg IM Th DIXIE Last Admin: 03/16/25 08:35 Dose: 100 mg Trazodone HCl (Trazodone Hcl 100 Mg Tablet) 100 mg PO BEDTIME [facility] Last Admin: 03/18/25 21:24 Dose: 100 mg Allergies Allergies Allergy/AdvReac Type Severity Reaction Status Date / Time naloxone Allergy Unknown Verified 03/01/25 12:51 Assessment & Plan Assessment & Plan (1) Bipolar disorder, current episode manic severe with psychotic features: Status: Acute Code(s): F31.2 - Bipolar disorder, current episode manic severe with psychotic features Plan per CARE team leda pt with h/o bipolar disorder Dx was BIBA from [facility], where he had stripped naked, urinated on the floor, and was kneeling and praying. once in [facility] he was behaving in an erratic manner, sometimes aggressive or unsafe (attempting elopement). he required IM medications on numerous occasions over several days while there. he was described by CARE team clinician as not oriented to person, place, or circumstance while in the ED. he believed he was in heaven. fecal smears were noted on his sheets. he was RIS and of labile affect. per collateral from pt's mother, pt had been adherent to medications until about 5 months ago. she reports that she noticed a change in him a couple of weeks ago. 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 she stated he was arrested for unknown reasons after leaving for the gym last . utox NEG (aside from benzos, which he was given in the ED). on interview with MD, pt is apparently quite sedated from thorazine given in the ED shortly prior to transfer. he indicates euthymic mood and denies SI/HI/AVH. groin rash noted. pt was started on lithium and zyprexa, which he has taken in the past successfully. offer lithium and zyprexa. thorazine and valium PRN agitation. DC ibuprofen and lisinopril due to restarting lithium. medical consult for HTN, groin rash. also elevated WBC, PMN predominant, unclear etiology. 03/04: disorganized. oriented to self. labile. presents with flight of ideas.walking around at times with eyes closed. incontinent of urine x2 this morning. medication compliant. continues on 1:1 safety checks. continue current tx plan. 03/05: In and out of room. disrobed x1. incontinent of urine x1. Showered. Moments of lucidity; pt was able to state name of hospital and date. He reports he wants to stay in the hospital for mental health treatment; pt signed CV; arriola warning given. pt stated, I want to stay here and get help. I don't remember my medications but my mother does . Continue current tx plan. 03/06: Active on unit. disrobed x1. has not been incontinent of urine so far today. More organized, however continues disorganized. Placed his hospital rocky under running water and wore it but changed with staff assistance. He reports feeling happy today but is unable to state reason. States he is disrobing to shower; educated he can't disrobe in front of others. denies any side effects from medications. T/W spoke to patients mother, Tory, with pt's consent. Pt's mother states she does not know his medication hx or his outpatient prescriber's name. Continue current tx plan. 03/07: Active on unit. did not disrobed or have incontinence today. disorganized. Patient thanked T/W for putting his dogs in the kennel and giving him a picture of an elephant; T/W informed pt neither of those were done by them; pt stated, well I remember that you did that . Continues to report feeling happy today because he's in the hospital. He feels the medications are great ; lithium level to be drawn on 03/09/25; pt aware. Continue current tx plan. 03/08: Patient notes that he feels great. He denies anxiety or depression. He denies SI/HI/AH/VH. He is religiously preoccupied he notes that he prays to Allah/God and sees Him in different form. Continue current regimen. 03/09: Active on unit. social with peers. labile. [place] level 0.29 on 03/09/25. medication compliant. Per nursing, slept 7 hours last night. [place] increased to 900mg PO BID. Start: Depakote ER 1500mg PO bedtime. 03/10: Active on unit. social with peers. medication compliant. labile. cheerful in the morning, became irritable in the afternoon. Patient stated, I feel great! I got everything I want in life right here! . denies SI/HI/VH/AH. denies any side effects from medications. per nursing, slept 6 hours last night. Continue current tx plan. 03/11/25: Slept for 4.5 hours, medication compliant except for night stand and other creams for his groin which is resolved. Good appetite. Continued to be on close observation. Pacing, happy, pressured speech, but pleasant and cooperative. It was sometimes he having tough time remove himself from the situation. He saw people around 1 of the peers, take time to redirect him away from that scene. Reports since his girlfriend passed 5 years ago, his mental health has been declined but he is working on getting better. No incontinence issues. Denies other safety concerns. 03/12/25: Slept for 4-5 hours last night. Reported that he does not not feel tired. Visible, social, and attended groups, pressure speech. He can be irritable but redirectable. He reported that he call mom, people in house very negative. He feel like he need to be here for his mental health and feel happy with where I am now and accepted help. Remain on close observation. Walking with bare foot which he reports is better for him and his shoes does not make her his fit comfortable. Denies depression/or anxiety, denies voices/hallucinations. 03/13: Active on unit. social with peers. attending groups. labile. Patient continues to report feeling great ; moments of agitation. more organized; placed on 5 minute checks. denies SI/HI/VH/AH. Valproic acid level 40.2 on 03/13/25. Labs to be redrawn tomorrow morning;pt aware. 03/14: Active on unit. social with peers. attending groups. Patient continues to report feeling great in the morning but becomes agitated as the day goes on. Patient reports he becomes agitated because he misses his dogs. Patient able to have an organized conversation. pt stated, I don't remember urinating in the room. I'm sorry if I did. Something must be working because I can sit down and have a conversation now . denies SI/HI/VH/AH. Depakote increased to 2000mg PO bedtime. Change to 15 minute safety checks. 03/15: Active on unit. social with peers. attending groups. Patient continues to report feeling great ; no agitation noted last evening. denies SI/HI/VH/AH. He reports sleeping well last night. Per nursing, slept 8 hours. Continue current tx plan. 03/16:Active on unit. social with peers. attending groups. signed 3 day notice, up on 03/21/25. Patient continues to report feeling great ; focused on discharge and seeing his dogs. denies SI/HI/VH/AH. Continue current tx plan.Valproic acid level to be drawn tomorrow 03/17: Active on unit. social with peers. attending groups. showered. 3 day notice up on 03/21/25. Patient reports feeling good ; pt stated, I know I need the medicine. I feel better on it. I feel ready to go home and get back to my schedule . denies SI/HI/VH/AH. Valproic acid level 55.6 on 03/17/25. Labs to be drawn on 03/19/25. 03/18: Continue current regimen and plans with above-mentioned changes 03/19: Continue current plans and regimen Patient educated on: medication risk/benefits Reason for continued inpatient stay Substantial Risk for: med/psych decompensation Time Spent With Patient Time: Total time managing care of this patient today ____ minutes.
[2025-03-19 08:52] VITALS: BP 154/87; PULSE 106
[2025-03-19 08:53] VITALS: BP 154/87
[2025-03-19 15:04] VITALS: BP 133/79; PULSE 103
[2025-03-19 19:46] VITALS: BP 156/83; PULSE 102; RESP 18; TEMP 36.4; O2SAT 97
[2025-03-20 07:10] VITALS: BP 145/90; PULSE 109; RESP 18; TEMP 36.9; O2SAT 97
[2025-03-20 08:01] VITALS: BP 145/90; PULSE 109
--- NOTE | 2025-03-20 09:03 | P.PNPSI_ITS ---
Subjective Subjective Date of Service: 03/20/25 Reason For Visit: raoul Subjective Notes: 3 Day Interim History: Active on unit. social with peers. attending groups. Patient continues to report feeling good ; he is looking forward to discharging home tomorrow. Patient is requesting to DC Seroquel and Trazodone; pt reports he doesn't like the way they make me feel . 3 day notice up on 03/21/25. [place] level 0.35 and Valproic acid level 47.0 on 03/19/25. Patient reports he plans on being medication compliant when discharged. denies SI/HI/VH/AH. Patient reports he plans on following up with his outpatient providers. Medication Compliance: Yes Side effects from medications: No Attending Groups: Yes Mental Status Exam Mental Status Exam Narrative: Pt is alert and oriented; behavior is cooperative, friendly and calm; dressed in casual attire; mood is described as good ; eye contact appropriate; Speech is normal rate, volume and not pressured; thought process is organized; Thought content is on tx/discharge; denies SI/HI/VH/AH. Diagnostics Vital Signs (24Hr): Vital Signs - 24 hr 03/19/25 15:04 03/19/25 19:46 03/20/25 07:10 Temperature 97.6 F 98.5 F Pulse Rate 103 H 102 H 109 H Respiratory Rate 18 18 Blood Pressure 133/79 156/83 H 145/90 H Pulse Oximetry 97 97 Oxygen Delivery Method Room Air Room Air 03/20/25 08:01 03/20/25 08:01 Temperature Pulse Rate 109 H Respiratory Rate Blood Pressure 145/90 H 145/90 H Pulse Oximetry Oxygen Delivery Method BMI result Body Mass Index 46.5 Labs 03/09/25 07:55 03/19/25 07:30 Labs: Laboratory Results - last 48 hr 03/19/25 07:30 Sodium 142 Potassium 3.6 Chloride 103 Carbon Dioxide 31 H Anion Gap 12 BUN 7 L Creatinine 0.77 Estim Creat Clear Calc 206.0 Estimated GFR > 60 Total Bilirubin 0.3 Direct Bilirubin 0.1 AST 26 ALT 50 H Alkaline Phosphatase 83 Ammonia 27 Total Protein 6.2 L Albumin 3.7 Valproic Acid 47.0 L [place] 0.35 L Medications Medications Current Medications Al Hydroxide/Mg Hydroxide (Magnesium Hydrox/Alum Hydrox 30 Ml Oral.Susp) 30 ml PO Q6H PRN PRN Reason: Heartburn/Nausea Amlodipine Besylate (Amlodipine Besylate 10 Mg Tablet) 10 mg PO BEDTIME DIXIE; Protocol Last Admin: 03/19/25 20:26 Dose: 10 mg Divalproex Sodium (Divalproex Sodium Er 500 Mg Tab.Er.24h) 2,000 mg PO BEDTIME DIXIE Last Admin: 03/19/25 20:25 Dose: 2,000 mg Hydroxyzine HCl (Hydroxyzine Hcl 50 Mg Tablet) 50 mg PO Q8H PRN PRN Reason: anxiety Last Admin: 03/19/25 15:04 Dose: 50 mg Ibuprofen (Ibuprofen 600 Mg Tablet) 600 mg PO TID PRN PRN Reason: Pain, Moderate(Pain Scale 4-6) Last Admin: 03/19/25 08:51 Dose: 600 mg [place] Carbonate ([place] Carbonate Er 450 Mg Tablet.Er) 900 mg PO BID DIXIE Last Admin: 03/20/25 08:00 Dose: 900 mg Losartan Potassium (Losartan Potassium 50 Mg Tablet) 100 mg PO DAILY DIXIE; Protocol Last Admin: 03/20/25 08:01 Dose: 100 mg Magnesium Hydroxide (Milk Of Magnesia 30 Ml Oral.Susp) 30 ml PO DAILY PRN PRN Reason: Constipation Last Admin: 03/10/25 10:27 Dose: 30 ml Olanzapine (Olanzapine 10 Mg Tablet) 20 mg PO BEDTIME DIXIE Last Admin: 03/19/25 20:26 Dose: 20 mg Propranolol HCl (Propranolol Hcl 10 Mg Tablet) 10 mg PO TID DIXIE; Protocol Last Admin: 03/20/25 08:01 Dose: 10 mg Quetiapine Fumarate (Quetiapine Fumarate 100 Mg Tablet) 100 mg PO BID [facility] Last Admin: 03/20/25 08:01 Dose: 100 mg Testosterone Cypionate (Testosterone Cypionate 200 Mg/1 Ml Vial) 100 mg IM Th DIXIE Last Admin: 03/16/25 08:35 Dose: 100 mg Trazodone HCl (Trazodone Hcl 100 Mg Tablet) 100 mg PO BEDTIME DIXIE Last Admin: 03/19/25 20:26 Dose: 100 mg Allergies Allergies Allergy/AdvReac Type Severity Reaction Status Date / Time naloxone Allergy Unknown Verified 03/01/25 12:51 Assessment & Plan Assessment & Plan (1) Bipolar disorder, current episode manic severe with psychotic features: Status: Acute Code(s): F31.2 - Bipolar disorder, current episode manic severe with psychotic features Plan per CARE team leda pt with h/o bipolar disorder Dx was BIBA from [facility], where he had stripped naked, urinated on the floor, and was kneeling and praying. [place] [facility] he was behaving in an erratic manner, sometimes aggressive or unsafe (attempting elopement). he required IM medications on numerous occasions over several days while there. he was described by CARE team clinician as not oriented to person, place, or circumstance while in the ED. he believed he was in heaven. fecal smears were noted on his sheets. he was RIS and of labile affect. per collateral from pt's mother, pt had been adherent to medications until about 5 months ago. she reports that she noticed a change in him a couple of weeks ago. 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 she stated he was arrested for unknown reasons after leaving for the gym last . utox NEG (aside from benzos, which he was given in the ED). on interview with MD, pt is apparently quite sedated from thorazine given in the ED shortly prior to transfer. he indicates euthymic mood and denies SI/HI/AVH. groin rash noted. pt was started on lithium and zyprexa, which he has taken in the past successfully. offer lithium and zyprexa. thorazine and valium PRN agitation. DC ibuprofen and lisinopril due to restarting lithium. medical consult for HTN, groin rash. also elevated WBC, PMN predominant, unclear etiology. 03/04: disorganized. oriented to self. labile. presents with flight of ideas.walking around at times with eyes closed. incontinent of urine x2 this morning. medication compliant. continues on 1:1 safety checks. continue current tx plan. 03/05: In and out of room. disrobed x1. incontinent of urine x1. Showered. Moments of lucidity; pt was able to state name of hospital and date. He reports he wants to stay in the hospital for mental health treatment; pt signed CV; arriola warning given. pt stated, I want to stay here and get help. I don't remember my medications but my mother does . Continue current tx plan. 03/06: Active on unit. disrobed x1. has not been incontinent of urine so far today. More organized, however continues disorganized. Placed his hospital rocky under running water and wore it but changed with staff assistance. He reports feeling happy today but is unable to state reason. States he is disrobing to shower; educated he can't disrobe in front of others. denies any side effects from medications. T/W spoke to patients mother, Tory, with pt's consent. Pt's mother states she does not know his medication hx or his outpatient prescriber's name. Continue current tx plan. 03/07: Active on unit. did not disrobed or have incontinence today. disorganized. Patient thanked T/W for putting his dogs in the kennel and giving him a picture of an elephant; T/W informed pt neither of those were done by them; pt stated, well I remember that you did that . Continues to report feeling happy today because he's in the hospital. He feels the medications are great ; lithium level to be drawn on 03/09/25; pt aware. Continue current tx plan. 03/08: Patient notes that he feels great. He denies anxiety or depression. He denies SI/HI/AH/VH. He is religiously preoccupied he notes that he prays to Allah/God and sees Him in different form. Continue current regimen. 03/09: Active on unit. social with peers. labile. [place] level 0.29 on 03/09/25. medication compliant. Per nursing, slept 7 hours last night. [place] increased to 900mg PO BID. Start: Depakote ER 1500mg PO bedtime. 03/10: Active on unit. social with peers. medication compliant. labile. cheerful in the morning, became irritable in the afternoon. Patient stated, I feel great! I got everything I want in life right here! . denies SI/HI/VH/AH. denies any side effects from medications. per nursing, slept 6 hours last night. Continue current tx plan. 03/11/25: Slept for 4.5 hours, medication compliant except for night stand and other creams for his groin which is resolved. Good appetite. Continued to be on close observation. Pacing, happy, pressured speech, but pleasant and cooperative. It was sometimes he having tough time remove himself from the situation. He saw people around 1 of the peers, take time to redirect him away from that scene. Reports since his girlfriend passed 5 years ago, his mental health has been declined but he is working on getting better. No incontinence issues. Denies other safety concerns. 03/12/25: Slept for 4-5 hours last night. Reported that he does not not feel tired. Visible, social, and attended groups, pressure speech. He can be irritable but redirectable. He reported that he call mom, people in house very negative. He feel like he need to be here for his mental health and feel happy with where I am now and accepted help. Remain on close observation. Walking with bare foot which he reports is better for him and his shoes does not make her his fit comfortable. Denies depression/or anxiety, denies voices/hallucinations. 03/13: Active on unit. social with peers. attending groups. labile. Patient continues to report feeling great ; moments of agitation. more organized; placed on 5 minute checks. denies SI/HI/VH/AH. Valproic acid level 40.2 on 03/13/25. Labs to be redrawn tomorrow morning;pt aware. 03/14: Active on unit. social with peers. attending groups. Patient continues to report feeling great in the morning but becomes agitated as the day goes on. Patient reports he becomes agitated because he misses his dogs. Patient able to have an organized conversation. pt stated, I don't remember urinating in the room. I'm sorry if I did. Something must be working because I can sit down and have a conversation now . denies SI/HI/VH/AH. Depakote increased to 2000mg PO bedtime. Change to 15 minute safety checks. 03/15: Active on unit. social with peers. attending groups. Patient continues to report feeling great ; no agitation noted last evening. denies SI/HI/VH/AH. He reports sleeping well last night. Per nursing, slept 8 hours. Continue current tx plan. 03/16:Active on unit. social with peers. attending groups. signed 3 day notice, up on 03/21/25. Patient continues to report feeling great ; focused on discharge and seeing his dogs. denies SI/HI/VH/AH. Continue current tx plan.Valproic acid level to be drawn tomorrow 03/17: Active on unit. social with peers. attending groups. showered. 3 day notice up on 03/21/25. Patient reports feeling good ; pt stated, I know I need the medicine. I feel better on it. I feel ready to go home and get back to my schedule . denies SI/HI/VH/AH. Valproic acid level 55.6 on 03/17/25. Labs to be drawn on 03/19/25. 03/18: Continue current regimen and plans with above-mentioned changes 03/19: Continue current plans and regimen 03/20: Active on unit. social with peers. attending groups. Patient continues to report feeling good ; he is looking forward to discharging home tomorrow. Patient is requesting to DC Seroquel and Trazodone; pt reports he doesn't like the way they make me feel . 3 day notice up on 03/21/25. [place] level 0.35 and Valproic acid level 47.0 on 03/19/25. Patient reports he plans on being medication compliant when discharged. denies SI/HI/VH/AH. Patient reports he plans on following up with his outpatient providers. Patient educated on: diagnosis and medication risk/benefits Reason for continued inpatient stay Substantial Risk for: stable for discharge Time Spent With Patient Time: Total time managing care of this patient today __20__ minutes.
--- NOTE | 2025-03-20 12:01 | P.CONNP_ITS ---
History of Present Illness Reason for Consult Consult date: 03/20/25 Chief Complaint Chief complaint: raoul History of Present Illness Narrative: 34 year old male with a history of HTN on 20mg daily lisinopril as outpatient, obseity and bipolar disorder admitted to the psychiatric unit for acute raoul. Nephrology consulted by medicine service for proteinuria, hypertension. patient reports he has a history of anabolic steroid use and since that time has had high blood pressure. States it is well managed through his PCP on 20mg lisinopril daily as an outpatient. States his PCP monitors his lithium levels. reports cuffs in psych unit are much smaller and tighter than he is used to, often taken on lower arm as cuffs are all too small for his upper arm. He is currently on losartan 100mg PO daily and amlodipine 10mg daily. Blood pressures this a.m. 145/90. [place] levels have been low, last on 03/19 was 0.35. Urine dip showed +1 protein in urine- since consult placed, urine protein/creatinine ratio done to quantify urine and is less than 0.2. patient reports he feels well and is hoping to return home to his dogs- he does not sleep well without them. Review of Systems Review of Systems Yes all other systems are reviewed and are negative PMF Past Medical History Medical History (Updated 03/20/25 @ 12:08 by Modesta Gaxiola, DNP, PROJECT DESIGNER-) Morbid obesity Essential hypertension Family History Family History Sister Bipolar 1 disorder Diabetes Substance abuse Mother Bipolar 1 disorder Substance abuse Brain tumor Father Bipolar 1 disorder Suicide Surgical History Surgical History (Updated 08/10/22 @ 15:40 by APRIL Welsh) Previous back surgery Social History Social History Household Members: Family Household Members Other:: mom, sister, and sister's boyfriend Housing: Unknown / Unable to assess Do you presently have visiting nurse or other home services: No Unable to assess alcohol history related to: Unable to respond Alcohol intake: never Comment: close obs for behaviors. Patient Tobacco Use Status: Never used Tobacco e-Cigarette/Vaping Use: Never Used Use of substances other than those prescribed or required for medical reasons: Unable to respond Currently Displaying Signs/Symptoms of Drug Intoxication Withdrawal: No Advance Directives: No Advance Directives Information Provided: No Do you have thoughts of harming others: None Do you have a plan to hurt others: No Plan Recently lost weight without trying: Unsure Nutrition Risks: No Nutritional Risk Poor oral hygiene: Yes service: No Sexual orientation: Straight/Heterosexual Meds Allergies Allergy/AdvReac Type Severity Reaction Status Date / Time naloxone Allergy Unknown Verified 03/01/25 12:51 Active Medications: Current Medications Al Hydroxide/Mg Hydroxide (Magnesium Hydrox/Alum Hydrox 30 Ml Oral.Susp) 30 ml PO Q6H PRN PRN Reason: Heartburn/Nausea Amlodipine Besylate (Amlodipine Besylate 10 Mg Tablet) 10 mg PO BEDTIME DIXIE; Protocol Last Admin: 03/19/25 20:26 Dose: 10 mg Divalproex Sodium (Divalproex Sodium Er 500 Mg Tab.Er.24h) 2,000 mg PO BEDTIME DIXIE Last Admin: 03/19/25 20:25 Dose: 2,000 mg Hydroxyzine HCl (Hydroxyzine Hcl 50 Mg Tablet) 50 mg PO Q8H PRN PRN Reason: anxiety Last Admin: 03/19/25 15:04 Dose: 50 mg Ibuprofen (Ibuprofen 600 Mg Tablet) 600 mg PO TID PRN PRN Reason: Pain, Moderate(Pain Scale 4-6) Last Admin: 03/20/25 10:39 Dose: 600 mg [place] Carbonate ([place] Carbonate Er 450 Mg Tablet.Er) 900 mg PO BID DIXIE Last Admin: 03/20/25 08:00 Dose: 900 mg Losartan Potassium (Losartan Potassium 50 Mg Tablet) 100 mg PO DAILY DIXIE; Protocol Last Admin: 03/20/25 08:01 Dose: 100 mg Magnesium Hydroxide (Milk Of Magnesia 30 Ml Oral.Susp) 30 ml PO DAILY PRN PRN Reason: Constipation Last Admin: 03/10/25 10:27 Dose: 30 ml Olanzapine (Olanzapine 10 Mg Tablet) 20 mg PO BEDTIME DIXIE Last Admin: 03/19/25 20:26 Dose: 20 mg Propranolol HCl (Propranolol Hcl 10 Mg Tablet) 10 mg PO TID DIXIE; Protocol Last Admin: 03/20/25 08:01 Dose: 10 mg Quetiapine Fumarate (Quetiapine Fumarate 100 Mg Tablet) 100 mg PO BID DIXIE Last Admin: 03/20/25 08:01 Dose: 100 mg Testosterone Cypionate (Testosterone Cypionate 200 Mg/1 Ml Vial) 100 mg IM Th COUNT INCLUDES THE [facility] Last Admin: 03/16/25 08:35 Dose: 100 mg Trazodone HCl (Trazodone Hcl 100 Mg Tablet) 100 mg PO BEDTIME COUNT INCLUDES THE [facility] Last Admin: 03/19/25 20:26 Dose: 100 mg Home Medications ?Medication ?Instructions ?Recorded ?Confirmed ?Last Taken ?Type suvorexant 10 mg tablet (Belsomra) 20 mg PO DAILY 02/0803/02/25 Unknown History syringe with needle, safety 3 mL 03/02/25 03/02/25 Un known History 22 gauge x 1 2 (UltiCare Safety Syringe) ibuprofen 800 mg tablet 800 mg PO Q8H PRN pain 03/0303/03/25 Unknown History lisinopril 20 mg tablet 20 mg PO DAILY 03/03/2502/08 Unknown History Physical Exam Vital Signs: Last Vital Signs Temp 98.5 F 03/20/25 07:10 Pulse 109 H 03/20/25 08:01 Resp 18 03/20/25 07:10 BP 145/90 H 03/20/25 08:01 Pulse Ox 97 03/20/25 07:10 O2 Del Method Room Air 03/20/25 07:10 BMI result Body Mass Index 46.5 Const General: no acute distress, alert and awake Resp Effort & Inspection: normal respiratory effort and able to speak in complete sentences Auscultation: clear to auscultation bilaterally Cardio Rate: regular rate Rhythm: regular rhythm Heart sounds: S1 normal heart sound present and S2 normal heart sound present GI Palpation (GI): Soft to palpation and nontender General: Yes no CVA tenderness Back/Spine/Pelvis Back: no CVA tenderness Skin Rashes: no rashes Extrem General: No edema Results Lab Results 03/09/25 07:55 03/19/25 07:30 Lab results: Chemistry 03/17/25 03/19/25 14:00 07:30 Sodium 141 142 Potassium 3.6 3.6 Carbon Dioxide 31 H 31 H BUN 8 L 7 L Creatinine 0.71 0.77 Calcium 9.2 Urine Studies 03/17/25 17:15 Urine Creatinine 33.85 Assessment and Plan (1) Hypertension: Qualifiers: Hypertension type: primary hypertension Qualified Code(s): I10 - Essential (primary) hypertension Status: Acute Plan Hypertension is adequately controlled- current levels are likely falsely elevated given blood pressure cuffs in psych unit are too small for patient's arm- forearm less accurrate adn should be measuring on upper arm for most accurate measurement. Current levels are accetpable at this time. Recommend continuing current medication regimen. Patient may follow up with his PCP for monitoring of lithium levels are blood pressures. no significant proteinuria requiring further investigation at this time. Will sign off, happy to follow up if changes or new concerns arise. Procedures Date of Service Date of Service: 03/20/25
[2025-03-20 15:14] VITALS: BP 188/88; PULSE 109
[2025-03-20 15:44] LABS: Anion Gap 10 (12-20); Blood Urea Nitrogen 11 mg/dL (9-16); Calcium 9.4 mg/dL (8.4-10.2); Carbon Dioxide 32 mmol/L (22-29); Chloride 103 mmol/L (96-108); Creatinine Clr Calc Pharmacy 188.8; Estimated Glomerular Filt Rate > 60; Potassium 3.9 mmol/L (3.3-5.1); Sodium 141 mmol/L (135-145)
[2025-03-20 20:00] VITALS: BP 159/90; PULSE 109; RESP 18; TEMP 37.2; O2SAT 96
[2025-03-20 20:02] VITALS: BP 159/90
[2025-03-21 07:33] VITALS: BP 153/88; PULSE 105; RESP 20; TEMP 36.4; O2SAT 98
[2025-03-21 08:04] VITALS: BP 153/88; PULSE 105
--- NOTE | 2025-03-21 09:30 | PM.PSYDC ---
DS: Providers Provider Date of Service: 03/21/25 Date of admission: 03/03/25 12:06 Date of discharge: 03/21/25 Primary care physician: Eleni Physician Attending physician on admission: Edu Chavarria Consults: 03/03/25 15:21 Consult to Hospitalist Routine Comment: lisinopril DCed due to restarting lithium Consulting Provider: [facility] Reason For Exam: groin rash, new anti-hypertensive, elevated WBC? 03/17/25 15:21 Consult to Nephrology Routine Consulting Provider: [facility] Reason for consultation: Uncontrolled HTN, protenuria Attending physician on discharge: Eloy Bazzi Discharging clinician: Valerie Olvera DS: Diagnosis Discharge Diagnosis (1) Bipolar disorder, current episode manic severe with psychotic features: Status: Acute DS: Medications Discharge Medications Home Medications: Home Medications ?Medication ?Instructions ?Recorded ?Confirmed syringe with needle, safety 3 mL 03/02/25 03/02/25 22 gauge x 1 1/2 (UltiCare Safety Syringe) ibuprofen 800 mg tablet 800 mg PO Q8H PRN pain 03/03/25 03/03/25 Previous Rx's ?Medication ?Instructions ?Recorded testosterone cypionate 200 mg/mL 100 mg (0.5 mL) IM Q7D #0 mL 08/19/22 intramuscular oil (Depo-Testosterone) amlodipine 10 mg tablet 10 mg PO BEDTIME 30 days #30 tabs 03/20/25 divalproex 500 mg tablet,extended 2,000 mg (4 x 500 mg) PO BEDTIME 7 03/20/25 release 24 hr days #28 tabs hydroxyzine HCl 50 mg tablet 50 mg PO BID PRN anxiety 30 days 03/20/25 #60 tabs lithium carbonate 450 mg 900 mg (2 x 450 mg) PO BID 7 days 03/20/25 tablet,extended release #28 tabs losartan 100 mg tablet 100 mg PO DAILY 30 days #30 tabs 03/20/25 olanzapine 20 mg tablet 20 mg PO BEDTIME 30 days #30 tabs 03/20/25 propranolol 10 mg tablet 10 mg PO TID 30 days #90 tabs 03/20/25 Mental Status Exam Mental Status Exam Narrative: Pt is alert and oriented; behavior is cooperative, friendly and calm; dressed in casual attire; mood is described as good ; eye contact appropriate; Speech is normal rate, volume and not pressured; thought process is organized; Thought content is on tx/discharge; denies SI/HI/VH/AH. Data Data Completed and Pending Completed studies during hospitalization [Text1]: 03/17/25 03/17/25 03/17/25 08:44 14:00 17:15 Sodium 141 Potassium 3.6 Chloride 103 Carbon Dioxide 31 H Anion Gap 11 L BUN 8 L Creatinine 0.71 Estim Creat Clear Calc 223.4 Estimated GFR > 60 Random Glucose 147 H Calcium 9.2 Total Bilirubin 0.4 Direct Bilirubin 0.1 AST 26 ALT 56 H Alkaline Phosphatase 85 Ammonia 22 Total Protein 6.3 L Albumin 3.6 U Random Total Protein < 7 Urine Creatinine 33.85 Protein/Creatinin Ratio TNP Valproic Acid 55.6 [place] 03/19/25 03/20/25 07:30 13:58 Sodium 142 141 Potassium 3.6 3.9 Chloride 103 103 Carbon Dioxide 31 H 32 H Anion Gap 12 10 L BUN 7 L 11 Creatinine 0.77 0.84 Estim Creat Clear Calc 206.0 188.8 Estimated GFR > 60 > 60 Random Glucose 209 H Calcium 9.4 Total Bilirubin 0.3 Direct Bilirubin 0.1 AST 26 ALT 50 H Alkaline Phosphatase 83 Ammonia 27 Total Protein 6.2 L Albumin 3.7 U Random Total Protein Urine Creatinine Protein/Creatinin Ratio Valproic Acid 47.0 L [place] 0.35 L 03/02/25 02:45 Blood - Venous Blood Culture - Final No growth after 5 days. 03/02/25 02:38 Blood - Venous Blood Culture - Final No growth after 5 days. DS: Summary Hospital Course Hospital Course: per CARE team bruna tompkins with h/o bipolar disorder Dx was BIBA from [facility], where he had stripped naked, urinated on the floor, and was kneeling and praying. once in [facility] ED he was behaving in an erratic manner, sometimes aggressive or unsafe (attempting elopement). he required IM medications on numerous occasions over several days while there. he was described by CARE team clinician as not oriented to person, place, or circumstance while in the ED. he believed he was in heaven. fecal smears were noted on his sheets. he was RIS and of labile affect. per collateral from pt's mother, pt had been adherent to medications until about 5 months ago. she reports that she noticed a change in him a couple of weeks ago. 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 she stated he was arrested for unknown reasons after leaving for the gym last . utox NEG (aside from benzos, which he was given in the ED). on interview with MD, pt is apparently quite sedated from thorazine given in the ED shortly prior to transfer. he indicates euthymic mood and denies SI/HI/AVH. groin rash noted. pt was started on lithium and zyprexa, which he has taken in the past successfully. offer lithium and zyprexa. thorazine and valium PRN agitation. DC ibuprofen and lisinopril due to restarting lithium. medical consult for HTN, groin rash. also elevated WBC, PMN predominant, unclear etiology. disorganized. oriented to self. labile. presents with flight of ideas.walking around at times with eyes closed. incontinent of urine x2 this morning. medication compliant. continues on 1:1 safety checks. continue current tx plan. In and out of room. disrobed x1. incontinent of urine x1. Showered. Moments of lucidity; pt was able to state name of hospital and date. He reports he wants to stay in the hospital for mental health treatment; pt signed CV; arriola warning given. pt stated, I want to stay here and get help. I don't remember my medications but my mother does . Continue current tx plan. Active on unit. disrobed x1. has not been incontinent of urine so far today. More organized, however continues disorganized. Placed his hospital rocky under running water and wore it but changed with staff assistance. He reports feeling happy today but is unable to state reason. States he is disrobing to shower; educated he can't disrobe in front of others. denies any side effects from medications. T/W spoke to patients mother, Tory, with pt's consent. Pt's mother states she does not know his medication hx or his outpatient prescriber's name. Continue current tx plan. Active on unit. did not disrobed or have incontinence today. disorganized. Patient thanked T/W for putting his dogs in the kennel and giving him a picture of an elephant; T/W informed pt neither of those were done by them; pt stated, well I remember that you did that . Continues to report feeling happy today because he's in the hospital. He feels the medications are great ; lithium level to be drawn on 03/09/25; pt aware. Continue current tx plan. Patient notes that he feels great. He denies anxiety or depression. He denies SI/HI/AH/VH. He is religiously preoccupied he notes that he prays to Allah/God and sees Him in different form. Continue current regimen. Active on unit. social with peers. labile. [place] level 0.29 on 03/09/25. medication compliant. Per nursing, slept 7 hours last night. [place] increased to 900mg PO BID. Start: Depakote ER 1500mg PO bedtime. Active on unit. social with peers. medication compliant. labile. cheerful in the morning, became irritable in the afternoon. Patient stated, I feel great! I got everything I want in life right here! . denies SI/HI/VH/AH. denies any side effects from medications. per nursing, slept 6 hours last night. Continue current tx plan. Slept for 4.5 hours, medication compliant except for night stand and other creams for his groin which is resolved. Good appetite. Continued to be on close observation. Pacing, happy, pressured speech, but pleasant and cooperative. It was sometimes he having tough time remove himself from the situation. He saw people around 1 of the peers, take time to redirect him away from that scene. Reports since his girlfriend passed 5 years ago, his mental health has been declined but he is working on getting better. No incontinence issues. Denies other safety concerns. Slept for 4-5 hours last night. Reported that he does not not feel tired. Visible, social, and attended groups, pressure speech. He can be irritable but redirectable. He reported that he call mom, people in house very negative. He feel like he need to be here for his mental health and feel happy with where I am now and accepted help. Remain on close observation. Walking with bare foot which he reports is better for him and his shoes does not make her his fit comfortable. Denies depression/or anxiety, denies voices/hallucinations. Active on unit. social with peers. attending groups. labile. Patient continues to report feeling great ; moments of agitation. more organized; placed on 5 minute checks. denies SI/HI/VH/AH. Valproic acid level 40.2 on 03/13/25. Labs to be redrawn tomorrow morning;pt aware. Active on unit. social with peers. attending groups. Patient continues to report feeling great in the morning but becomes agitated as the day goes on. Patient reports he becomes agitated because he misses his dogs. Patient able to have an organized conversation. pt stated, I don't remember urinating in the room. I'm sorry if I did. Something must be working because I can sit down and have a conversation now . denies SI/HI/VH/AH. Depakote increased to 2000mg PO bedtime. Change to 15 minute safety checks. Active on unit. social with peers. attending groups. Patient continues to report feeling great ; no agitation noted last evening. denies SI/HI/VH/AH. He reports sleeping well last night. Per nursing, slept 8 hours. Continue current tx plan. Active on unit. social with peers. attending groups. signed 3 day notice, up on 03/21/25. Patient continues to report feeling great ; focused on discharge and seeing his dogs. denies SI/HI/VH/AH. Continue current tx plan.Valproic acid level to be drawn tomorrow Active on unit. social with peers. attending groups. showered. 3 day notice up on 03/21/25. Patient reports feeling good ; pt stated, I know I need the medicine. I feel better on it. I feel ready to go home and get back to my schedule . denies SI/HI/VH/AH. Valproic acid level 55.6 on 03/17/25. Labs to be drawn on 03/19/25. Active on unit. social with peers. attending groups. Patient continues to report feeling good ; he is looking forward to discharging home tomorrow. Patient is requesting to DC Seroquel and Trazodone; pt reports he doesn't like the way they make me feel . 3 day notice up on 03/21/25. [place] level 0.35 and Valproic acid level 47.0 on 03/19/25. Patient reports he plans on being medication compliant when discharged. denies SI/HI/VH/AH. Patient reports he plans on following up with his outpatient providers. Status at Discharge Cognitive/behavioral status at discharge: Patient has insight and demonstrates good judgment in terms of wanting to pursue treatment. Patient has a safety plan that includes presenting to the closest ER or calling 911 if feeling unsafe. Functional status at discharge: independent ambulation Overall status at discharge: patient is back to baseline Time Spent with Patient Time attestation: Total time managing care of this patient today _20___ minutes. Time spent: Less than 30 minutes Discharge Plan Discharge Anticipated Discharge Date/Time: 03/21/25 11:00 Patient Disposition: Home, Self-Care Discharge Diagnosis: Bipolar d/o Referrals: SINCERE SOLORZANO, MEDICATION PROVIDER [Other] - 03/22/25 2:00 pm Referral Note: IN PERSON [facility] [Provider Group] - 1 Week Referral Note: 03-20-25 [facility] was added to patients chart. Please call [phone] to schedule a follow up appt within 7-10 days of discharge. No release or PCP on file. Discharge Medications: New amlodipine 10 mg Tablet 10 mg PO BEDTIME 30 Days Qty: 30 0RF Protocol: Hold for SBP< HOLD for SBP < : 90 propranolol 10 mg Tablet 10 mg PO TID 30 Days Qty: 90 0RF Protocol: Hold for SBP/HR < HOLD for SBP < : 90 HOLD for HR < : 60 losartan 100 mg tablet 100 mg PO DAILY 30 Days Qty: 30 0RF divalproex 500 mg Tablet Extended Release 24 Hr 2,000 mg PO BEDTIME 7 Days Qty: 28 3RF lithium carbonate 450 mg Tablet Extended Release 900 mg PO BID 7 Days Qty: 28 3RF olanzapine 20 mg tablet 20 mg PO BEDTIME 30 Days Qty: 30 0RF hydroxyzine HCl 50 mg Tablet 50 mg PO BID PRN (Reason: anxiety) 30 Days Qty: 60 0RF Continued testosterone cypionate [Depo-Testosterone] 200 mg/mL Oil 100 mg IM Q7D Qty: 0 0RF (DME) UltiCare Safety Syringe 3 mL 22 gauge x 1 1/2 syringe MISCELLANEOUS ibuprofen 800 mg tablet 800 mg PO Q8H PRN (Reason: pain) Discontinued Belsomra 10 mg tablet 20 mg PO DAILY lisinopril 20 mg tablet 20 mg PO DAILY Discharge Orders: Discharge Order (Routine); Ordered 03/21/25 Ordered By: Valerie Olvera Diet: Regular diet Activity on Discharge: As tolerated Stand Alone Forms: Patient Portal Discharge page, Community Support Print Language: Greenlandic Care Plan Goals: Maintain mood and safe behaviors Take medications as prescribed Practice coping skills Continue with outpatient providers and reach out to them as needed Health Concerns: Mood stability and behaviors Follow up with outpatient providers to monitor [place] and Depakote levels. Plan of Treatment: Follow up with your PCP, psychiatric provider and other outpatient providers regarding above concerns Take medications as prescribed Assessment: Patient has insight and demonstrates good judgment in terms of wanting to pursue treatment. Patient has a safety plan that includes presenting to the closest ER or calling 911 if feeling unsafe. Discharge Date/Time: 03/21/25 10:05
== END 2025-03-21 10:05 | disposition home or self-care (01) | DRG 885 ==
LOC: HO.ED 03-03 08:15 → HO.PADLT16 03-03 12:49
PROVIDERS: Emergency Medicine; Internal Medicine; Nurse Practitioner Family; Physician Assistant; Admitting Provider Psychiatry & Neurology Psychiatry; Emergency Provider Emergency Medicine Emergency Medical Services; Responsible Provider Registered Nurse; Visit Provider Psychiatry & Neurology Psychiatry
DX: F31.2 Bipolar disorder, current episode manic severe with psychotic features (principal); Z68.42 Body mass index [BMI] 45.0-49.9, adult; I10 Essential (primary) hypertension; B37.2 Candidiasis of skin and nail; E66.09 Other obesity due to excess calories; Z71.3 Dietary counseling and surveillance; Z79.899 Other long term (current) drug therapy
CPT/HCPCS: 36415; 80048; 80051; 80053; 80076; 80164; 80178; 80307; 81001; 82140; 82565; 82570; 83036; 83605; 84156; 84443; 84520; 85025; 87040; 93005; 99285; J1071; J1200; J1630; J1790; J2250; J2359; J3230; J3360; J3486; S9485

== ENCOUNTER → 2025-03-02 14:51 | Outpatient (BNV) | payer MEDICAID, SELFPAY | PROVIDERS: Admitting Provider Psychiatry & Neurology Psychiatry; Emergency Provider Emergency Medicine Emergency Medical Services; Visit Provider Internal Medicine Cardiovascular Disease | DX: Z13.6 Encounter for screening for cardiovascular disorders (principal) | CPT/HCPCS: 93010 ==

== ENCOUNTER → 2025-03-03 08:39 | Outpatient (BNV) | payer MEDICAID, SELFPAY | PROVIDERS: Admitting Provider Psychiatry & Neurology Psychiatry; Emergency Provider Emergency Medicine Emergency Medical Services; Visit Provider Internal Medicine Cardiovascular Disease | DX: Z13.6 Encounter for screening for cardiovascular disorders (principal) | CPT/HCPCS: 93010 ==

== ENCOUNTER → 2025-03-03 12:06 | Outpatient (BNV) | payer MEDICAID, SELFPAY | PROVIDERS: Admitting Provider Psychiatry & Neurology Psychiatry; Emergency Provider Emergency Medicine Emergency Medical Services; Responsible Provider Registered Nurse; Visit Provider Nurse Practitioner Family | DX: I10 Essential (primary) hypertension (principal) | CPT/HCPCS: 99221 ==

== ENCOUNTER → 2025-03-03 12:06 | Outpatient (BNV) | payer OTHER, SELFPAY | PROVIDERS: Admitting Provider Psychiatry & Neurology Psychiatry; Emergency Provider Emergency Medicine Emergency Medical Services; Visit Provider Psychiatry & Neurology Psychiatry | DX: F31.2 Bipolar disorder, current episode manic severe with psychotic features (principal) | CPT/HCPCS: 90792; 99231; 99232 ==

== ENCOUNTER → 2025-03-03 12:06 | Outpatient (BNV) | payer MEDICAID, SELFPAY | PROVIDERS: Admitting Provider Psychiatry & Neurology Psychiatry; Emergency Provider Emergency Medicine Emergency Medical Services; Visit Provider Nurse Practitioner Family | DX: B37.2 Candidiasis of skin and nail (principal); D72.829 Elevated white blood cell count, unspecified | CPT/HCPCS: 99222; 99499 ==